=== PATIENT | female | born 1965 | race Caucasian/White ===

== ENCOUNTER 2016-05-07 20:41 | Emergency (ER) | payer OTHER ==
[~2016-05-07] VITALS: Ht 162.6 cm; Wt 109.2 kg
[~2016-05-07 20:41] MED LIST: ALBUAER19 INH; ATV/1 PO; CARI350T PO; DULO60CA44 PO; FLUT0.15 NAE; GLC/500 PO; GLIM4TAB PO; INSDGI SC; MOME200A INH; OMEP40CA36 PO; ONDA4TAB7 SL
[2016-05-07 20:43] VITALS: TEMP 36.5; Ht 162.6 cm; Wt 109.2 kg
[2016-05-07] MEDS ORDERED: SUCR1TAB29 PO (21:25)
[2016-05-07] MEDS ORDERED: CLIN300C2 PO (21:25)
[2016-05-07] MEDS ORDERED: MAGIC SWIZZLE PO STA (21:26)
--- NOTE | 2016-05-07 21:26 | EMERGENCY ROOM VISIT NOTE ---
ED Visit Note First contact with patient: 21:01 CHIEF COMPLAINT: Toothache HISTORY OF PRESENT ILLNESS: This 51-year-old female patient presented to the emergency department ambulatory with a progressive toothache for past to hours. The patient believes it is coming from her left upper molar. The patient believes that she has an infection. She states she has had infections in the teeth before. She reports that she has been treated with clindamycin, but needs to take Carafate before taking the clindamycin. The pain is now steady and severe and radiates to the face. The patient does not have a dentist appointment set up. They rate their pain a 9/10. She has been taking Vicodin at home prescribed by her primary care provider without relief. Denies facial swelling or fever. The patient denies any discharge from the mouth. REVIEW OF SYSTEMS: A 6 system review of systems was completed with positives and pertinent negatives listed in the HPI. ALLERGIES: Amoxicillin, benzonatate, NSAIDs MEDICATIONS: See med list PMH: Hyperlipidemia, diabetes SOCIAL HISTORY: The patient lives locally with family. She is a smoker. PHYSICAL EXAM: Vitals are noted on the nurse's note and reviewed by myself. Vital signs stable. Temperature 36.5C orally. GENERAL: This is a 51-year-old female, in no acute distress, nondiaphoretic, well-developed well-nourished. Mouth: The left upper molar tooth is very carious and the gum is swollen and tender around it, without any discharge or signs of an abscess. The remainder of the pharynx and tonsils are without erythema, edema, or exudate. The airway is patent. There is no facial swelling, cervical or submandibular lymphadenopathy. The patient appears uncomfortable and in pain. The patient has overall poor dental hygiene. EARS: External auditory canals clear, tympanic membranes pearly augustin without erythema or effusion bilaterally. ED COURSE: The patient was evaluated as above. She does have several carious teeth and may have an early infection. She was given a prescription for clindamycin as well as Carafate. The patient did request something for pain and I informed her that since she does receive monthly narcotic prescriptions from her primary care provider, I was not comfortable providing her with any further prescriptions for narcotics. She was agreeable to a prescription for Magic swizzle and was given a home pack and prescription for this. She will need to follow-up with a dentist for definitive care of her dental issues. She verbalized her understanding and was discharged home in good condition. DIAGNOSIS: Odontalgia Problem List Medical Problems: (1) Anxiety Status: Chronic (2) Appendectomy Status: Resolved (3) Asthma Status: Chronic (4) Bilateral inguinal hernia repair Status: Resolved (5) Diabetes mellitus type 2 Status: Chronic (6) fibromyalgia Status: Chronic (7) History of - tubal ligation Status: Resolved (8) Left total knee revision in 03/09 Status: Resolved Current/Historical Medications Scheduled Atorvastatin (Lipitor), 40 MG PO HS Cetirizine (Zyrtec), 10 MG PO QAM Cholecalciferol (Vitamin D3), 1 TAB PO DAILY Clindamycin Hcl (Cleocin), 300 MG PO QID Duloxetine Hcl (Cymbalta), 60 MG PO DAILY Glimepiride (Amaryl), 4 MG PO QAM Insulin Glargine (Lantus), 50 UNITS SC HS Magnesium Oxide (Mag-Ox), 400 MG PO DAILY Metformin Hcl (Glucophage), 500 MG PO BID Mometasone Furoate-Formoterol (Dulera 200/5 Mcg), 2 PUFFS INH BID Omeprazole (Prilosec), 40 MG PO QAM Sucralfate (Carafate), 10 ML PO QID Scheduled PRN Albuterol Inhaler (Ventolin Inhaler), 2 PUFFS INH QID PRN for SOB/Wheezing Albuterol Sulfate (Albuterol Sulfate), 1 VIAL INH Q4H PRN for SOB/Wheezing Carisoprodol (Soma), 350 MG PO TID PRN for Muscle Spasm Diphenhy/Alum/Mag/Sucralfa (Magic Swizzle - Diphenhy/Alum/Mag/Sucralfa), 1 TSP PO Q4H PRN for Pain Fluticasone Propionate (Nasal) (Flonase Allergy Relief), 2 SPRAYS DANIKA DAILY PRN for Nasal Congestion Hydrocodone/Acetaminophen 10MG/325MG ([place] 10MG/325MG), 1 TAB PO Q6H PRN for Pain Insulin Glulisine (Apidra), 3-4 UNITS SQ AC PRN for Coverage Lorazepam (Ativan), 1 MG PO TID PRN for Anxiety/Agitation Ondansetron (Zofran Odt), 4 MG SL Q6H PRN for Nausea Allergies Coded Allergies: Amoxicillin (Verified Allergy, Mild, RASH, 05/07/16) Benzonatate (Verified Allergy, Mild, RASH, 05/07/16) NSAIDs (Verified Adverse Reaction, Intermediate, nausea, 05/07/16) Vital Signs Date Time Temp Pulse Resp B/P Pulse Ox O2 Delivery O2 Flow Rate FiO2 05/07/16 21:53 80 20 141/84 97 05/07/16 20:43 36.5 104 20 146/85 96 Room Air Medications Administered Medications (Trade) Dose Ordered Sig/Darrell Route Start Time Stop Time Status Last Admin Dose Admin Sucralfate (Carafate Tab) 1 gm NOW ONCE PO 05/07/16 21:30 05/07/16 21:31 DC 05/07/16 21:35 1 GM Departure Information Impression Primary Impression: Dental caries Dispostion Home / Self-Care Condition GOOD Prescriptions Sucralfate (CARAFATE) 1 Gm/10 Ml Shaina 10 ML PO QID for 10 Days, #400 ML Prov: Leyda Traylor PA-C 05/07/16 Diphenhy/Alum/Mag/Sucralfa (Magic Swizzle - Diphenhy/Alum/Mag/Sucralfa) Susp 1 TSP PO Q4H Y for Pain, #100 ML 30ML DIPHENHYDRAMINE SLN 12.5/5ML 60ML MAALOX 4GM CARAFATE SWISH AND SPIT Prov: Leyda Traylor PA-C 05/07/16 Clindamycin Hcl (CLEOCIN) 300 Mg Cap 300 MG PO QID for 10 Days, #40 CAP Prov: Leyda Traylor PA-C 05/07/16 Referrals Israel Nicole M.D. (PCP) Patient Instructions A Signature Page, My [facility] Additional Instructions You have been treated in the Emergency Department for Dental Pain. You were prescribed clindamycin to be taken as prescribed. This is an antibiotic. All antibiotics have the potential to cause diarrhea. Stop this medication and contact a medical provider if you were to develop any significant adverse side effects including: wheezing, shortness of breath, passing out, vomiting, or a diffuse rash. Always take antibiotics as directed and COMPLETE the ENTIRE course regardless of the improvement of your symptoms. For pain control, you can use the following [id number] medicines (if >12 yo): - Regular strength (325mg/tab) Tylenol (acetaminophen) 2 tabs every 4-6 hours as needed. Do not exceed 12 tablets in a 24 hour period. Avoid taking more than 4 grams (4000 mg) of Tylenol per day. This includes any other sources of acetaminophen you may take on a regular basis. - Regular strength (200 mg/tab) Advil (ibuprofen) 1-2 tabs every 4-6 hours as needed. Do not exceed a dose of 3200 mg per day. Refrain from smoking cigarettes or using chewing tobacco until you have been evaluated by your dentist. Keeping beverages lukewarm and consuming soft foods can decrease your pain. Warm compresses over the affected area may offer some relief. You MUST seek evaluation of your dental pain by a dentist following your visit to the Emergency Department. The Emergency Department is not capable of treating dental issues long-term. You should call your dentist as soon as possible to make an appointment for evaluation of your dental pain. Return to the emergency department if you develop the following symptoms despite treatment course outlined above: fever, intractable pain, increased redness, swelling, or purulent discharge.
[2016-05-07] MEDS ORDERED: SUCRALFATE 1 GM TAB PO ONE (21:30)
[2016-05-07] MEDS ORDERED: CLINDAMYCIN 150MG HOME PACK PO ONE (21:30)
[2016-05-07] MEDS ORDERED: CRFL PO (21:36)
[2016-05-07] MEDS ORDERED: MAGIC1 PO (21:36)
[2016-05-07 21:53] VITALS: BP 141/84; PULSE 80; O2SAT 97
[2016-12-24] MEDS ORDERED: ADVIN50/60 INH (13:20)
[2016-12-24] MEDS ORDERED: LRS10 PO (13:20)
[2016-12-24] MEDS ORDERED: ALBU0.633 INH (13:30)
[2016-12-24] MEDS ORDERED: CETI10TA84 PO (15:00)
[2016-12-24] MEDS ORDERED: HYDR-4079 PO (15:00)
[2016-12-24] MEDS ORDERED: INSUINJ5 SC (15:04)
[2016-12-24] MEDS ORDERED: MAGN400T6 PO (19:29)
[2016-12-24] MEDS ORDERED: CHOL20007 PO (21:05)
[2016-12-24] MEDS ORDERED: ATOR-24 PO (21:05)
[2016-12-24] MEDS ORDERED: OMEP40CA41 PO (21:13)
[2016-12-24] MEDS ORDERED: VNTHFA/IN INH (21:13)
[2016-12-24] MEDS ORDERED: TURM500T PO (21:16)
[2016-12-24] MEDS ORDERED: MILKPOW PO (21:16)
[2016-12-24] MEDS ORDERED: KRIL1000 PO (21:16)
[2016-12-24] MEDS ORDERED: MULT-506 PO (21:16)
[2016-12-24] MEDS ORDERED: CALC-51 PO (21:16)
[2016-12-24] MEDS ORDERED: CINN1CAP2 PO (21:16)
[2017-04-13] MEDS ORDERED: CEFD300C3 PO (06:20)
[2017-04-13] MEDS ORDERED: MDRDP21 PO (06:20)
== END 2016-05-07 21:52 | disposition home or self-care (01) ==
LOC: C.EDB 20:42 → C.EDD 21:52
DX: K02.9 Dental caries, unspecified (principal); E78.5 Hyperlipidemia, unspecified; E11.9 Type 2 diabetes mellitus without complications; J45.909 Unspecified asthma, uncomplicated; F41.9 Anxiety disorder, unspecified; M79.7 Fibromyalgia; F17.200 Nicotine dependence, unspecified, uncomplicated; Z79.899 Other long term (current) drug therapy; Z79.4 Long term (current) use of insulin

== ENCOUNTER → 2016-07-10 | Outpatient (CLI) | payer OTHER ==
[~2016-07-10] VITALS: Ht 162.6 cm; Wt 109.1 kg
[~2016-07-10] MED LIST changes: +ADVIN50/60 INH; +ALBU0.633 INH; +ATOR-24 PO; +CALC-51 PO; +CEFU1TAB36 PO; +CETI10TA84 PO; +CHOL20007 PO; +CINN1CAP2 PO; +CRFL PO; +CYM60 PO; +FLNIN/ NAE; +GABA-112 PO; +GLC500 PO; +GLIM4TAB2 PO; +HYDR-4079 PO; +INSDGIPEN SC; +INSUINJ5 SC; +KRIL1000 PO; +LORA1TAB13 PO; +LRS10 PO; +MAGIC1 PO; +MAGN400T6 PO; +MILKPOW PO; +MULT-506 PO; +OMEP40CA41 PO; +ONDA4TAB10 SL; +ONDA4TAB54 SL; +PRED10TA PO; +PRED20TA PO; +SULF800T23 PO; +TURM500T PO; +VNTHFA/IN INH
[2016-07-10 14:36] VITALS: BP 145/81; PULSE 98; Ht 162.6 cm; Wt 109.1 kg
== END | disposition home or self-care (01) ==
LOC: C.NEUR 14:20
PROVIDERS: ATTEND Internal Medicine Pulmonary Disease
DX: G47.33 Obstructive sleep apnea (adult) (pediatric) (principal)

== ENCOUNTER 2016-09-09 20:45 | Emergency (ER) | payer OTHER ==
[~2016-09-09] VITALS: Ht 162.6 cm; Wt 108.1 kg
[~2016-09-09 20:45] MED LIST changes: -ADVIN50/60 INH; -ALBU0.633 INH; -ATOR-24 PO; -CALC-51 PO; -CEFU1TAB36 PO; -CETI10TA84 PO; -CHOL20007 PO; -CINN1CAP2 PO; -CRFL PO; -CYM60 PO; -FLNIN/ NAE; -GABA-112 PO; -GLC500 PO; -GLIM4TAB2 PO; -HYDR-4079 PO; -INSDGIPEN SC; -INSUINJ5 SC; -KRIL1000 PO; -LORA1TAB13 PO; -LRS10 PO; -MAGN400T6 PO; -MILKPOW PO; -MULT-506 PO; -OMEP40CA41 PO; -ONDA4TAB10 SL; -ONDA4TAB54 SL; -PRED10TA PO; -PRED20TA PO; -SULF800T23 PO; -TURM500T PO; -VNTHFA/IN INH
[2016-09-09 20:51] VITALS: Ht 162.6 cm; Wt 108.1 kg
[2016-09-09] MEDS ORDERED: ALBUT/IPRATROP 3MG/0.5MG NEB 3 ML VIAL INH STA (20:58)
--- NOTE | 2016-09-09 21:06 | EMERGENCY ROOM VISIT NOTE ---
History Report prepared by Brady: Jose Streeter Under the Supervision of: Dr. Israel Stanton D.O. First contact with patient: 20:55 Chief Complaint: RIB PAIN Stated Complaint: LT RIB PAIN, SOME SOB History of Present Illness The patient is a 51 year old female who presents to the Emergency Room with complaints of constant pain in her left ribs that she first experience when she woke up this morning, several hours prior to arrival. The patient states that she took a deep breath this morning and felt the pain in her left ribs. Her pain is still worsened with deep inspiration. She describes the pain as a "burning" sensation. The patient notes that she has been coughing persistently over the past six days. She first went to the walk-in clinic on for a low grade fever and cough. She returned to the clinic on Wednesday and was given Zithromax for a possible infiltrate in the right lung base. The patient has a history of COPD, diabetes, hyperlipidemia, and IBS. She has had an appendectomy , cholecystectomy, and tubal ligation in the past. Source of History: patient Onset: Several hours [employer] Position: other (Left Ribs ) Quality: burning Modifying Factors (Worsening): breathing (Deep inspiration) Review of Systems See HPI for pertinent positives & negatives. A total of 10 systems reviewed and were otherwise negative. Past Medical & Surgical Medical Problems: (1) Anxiety (2) Appendectomy (3) Asthma (4) Bilateral inguinal hernia repair (5) Cholecystitis (6) Diabetes mellitus type 2 (7) fibromyalgia (8) History of - tubal ligation (9) Left total knee revision in 03/09 (10) presyncope (11) seasonal allergies Family History Cancer Colon cancer Diabetes mellitus Gallbladder disease Heart disease Hypertension Lung disease Social History Smoking Status: Current Every Day Smoker Alcohol Use: none Drug Use: marijuana Marital Status: Housing Status: lives with family Occupation Status: unemployed Current/Historical Medications Scheduled Albuterol Hfa (Ventolin Hfa), 2-4 PUFFS INH Q6H Atorvastatin (Lipitor), 40 MG PO HS Calcium Carbonate-Vitamin D (Calcium), 1 TAB PO DAILY Cetirizine (Zyrtec), 10 MG PO QAM Cholecalciferol (Vitamin D3), 1 TAB PO DAILY Cinnamon (Cinnamon), 500 MG PO DAILY Duloxetine Hcl (Cymbalta), 60 MG PO DAILY Glimepiride (Amaryl), 4 MG PO QAM Insulin Glargine (Lantus), 50 UNITS SC QPM Krill Oil (Krill Oil), 1 CAP PO DAILY Magnesium Oxide (Mag-Ox), 400 MG PO DAILY Metformin Hcl (Glucophage), 500 MG PO BID Milk Thistle Seed (Bulk) (Milk Thistle), Unknown Dose PO DAILY Mometasone Furoate-Formoterol (Dulera 200/5 Mcg), 2 PUFFS INH BID Multivitamin (Multivitamin), 1 TAB PO DAILY Omeprazole (Prilosec), 40 MG PO DAILY Turmeric (Curcuma Longa) (Turmeric), 500 MG PO DAILY Scheduled PRN Albuterol Sulfate (Albuterol Sulfate), 1 VIAL INH Q4H PRN for SOB/Wheezing Carisoprodol (Soma), 350 MG PO TID PRN for Muscle Spasm Fluticasone Propionate (Nasal) (Flonase Allergy Relief), 2 SPRAYS DANIKA DAILY PRN for Nasal Congestion Hydrocodone/Acetaminophen 10MG/325MG ([place] 10MG/325MG), 1 TAB PO Q6H PRN for Pain Insulin Glulisine (Apidra), 3-4 UNITS SQ AC PRN for Coverage Lorazepam (Ativan), 1 MG PO TID PRN for Anxiety/Agitation Ondansetron (Ondansetron HCl), 4 MG SL Q6H PRN for Nausea Allergies Coded Allergies: Amoxicillin (Verified Allergy, Mild, RASH, 09/09/16) Benzonatate (Verified Allergy, Mild, RASH, 09/09/16) NSAIDs (Verified Adverse Reaction, Intermediate, nausea, 09/09/16) Physical Exam Vital Signs Date Time Temp Pulse Resp B/P Pulse Ox O2 Delivery O2 Flow Rate FiO2 09/09/16 22:15 36.8 92 16 128/81 94 09/09/16 21:41 92 09/09/16 21:37 97 16 94 Room Air 09/09/16 21:22 98 Room Air 09/09/16 20:51 36.8 100 20 128/81 94 Room Air Physical Exam GENERAL: Patient is awake, alert, and in no acute distress. Patient is resting comfortably and showing no signs of anxiety EYES: The conjunctivae are clear. The pupils are round and reactive. EARS, NOSE, MOUTH AND THROAT: The nose is without any evidence of any deformity. Mucous membranes are moist tongue is midline NECK: The neck is nontender and supple. RESPIRATORY: There are diminished breath sounds bilaterally. Splinting respirations noted. Expiratory wheezing both upper william. No tachypnea, no conversational dyspnea. CARDIOVASCULAR: Regular rate and rhythm noted there no murmurs rubs or gallops normal S1 normal S2 GASTROINTESTINAL: The abdomen is soft. Bowel sounds are present in all quadrants. Abdomen is nontender MUSCULOSKELETAL/EXTREMITIES: There is no evidence of gross deformity full range of motion is noted in the hips and shoulders SKIN: There is no obvious evidence of any rash. There are no petechiae, pallor or cyanosis noted. NEUROLOGIC: Patient is awake alert and oriented x3 Medical Decision & Procedures ER Provider Diagnostic Interpretation: Radiology results as stated below per my review and radiologist interpretation: CHEST ONE VIEW PORTABLE CLINICAL HISTORY: EVALUATE RESPIRATORY DISTRESS. DYSPNEA COMPARISON STUDY: 01/22/2016 FINDINGS: The bones soft tissues and hemidiaphragms are normal. The cardiomediastinal silhouette is normal. The lungs are clear. The pulmonary vasculature is normal. IMPRESSION: Negative chest. Electronically signed by: Aidan Concepcion M.D. 09/09/2016 9:21 PM Dictated Date/Time: 09/09/2016 9:21 PM Laboratory Results 09/09/16 21:30 Red Blood Count 5.01, Mean Corpuscular Volume 84.0, Mean Corpuscular Hemoglobin 28.7, Mean Corpuscular Hemoglobin Concent 34.2, Mean Platelet Volume 9.1, Neutrophils (%) (Auto) 60.0, Lymphocytes (%) (Auto) 32.0, Monocytes (%) (Auto) 5.3, Eosinophils (%) (Auto) 1.8, Basophils (%) (Auto) 0.6, Neutrophils # (Auto) 6.95, Lymphocytes # (Auto) 3.71, Monocytes # (Auto) 0.61, Eosinophils # (Auto) 0.21, Basophils # (Auto) 0.07 09/09/16 21:30 Test 09/09/16 21:30 09/09/16 21:33 White Blood Count 11.58 K/uL (4.8-10.8) Red Blood Count 5.01 M/uL (4.2-5.4) Hemoglobin 14.4 g/dL (12.0-16.0) Hematocrit 42.1 % (37-47) Mean Corpuscular Volume 84.0 fL (80-100) Mean Corpuscular Hemoglobin 28.7 pg (25-34) Mean Corpuscular Hemoglobin Concent 34.2 g/dl (32-36) Platelet Count 289 K/uL (130-400) Mean Platelet Volume 9.1 fL (7.4-10.4) Neutrophils (%) (Auto) 60.0 % Lymphocytes (%) (Auto) 32.0 % Monocytes (%) (Auto) 5.3 % Eosinophils (%) (Auto) 1.8 % Basophils (%) (Auto) 0.6 % Neutrophils # (Auto) 6.95 K/uL (1.4-6.5) Lymphocytes # (Auto) 3.71 K/uL (1.2-3.4) Monocytes # (Auto) 0.61 K/uL (0.11-0.59) Eosinophils # (Auto) 0.21 K/uL (0-0.5) Basophils # (Auto) 0.07 K/uL (0-0.2) RDW Standard Deviation 45.6 fL (36.4-46.3) RDW Coefficient of Variation 14.7 % (11.5-14.5) Immature Granulocyte % (Auto) 0.3 % Immature Granulocyte # (Auto) 0.03 K/uL (0.00-0.02) Prothrombin Time 10.0 SECONDS (9.0-12.0) Prothromb Time International Ratio 0.9 (0.9-1.1) Activated Partial Thromboplast Time 25.2 SECONDS (21.0-31.0) Partial Thromboplastin Ratio 1.0 Anion Gap 9.0 mmol/L (3-11) Est Creatinine Clear Calc Drug Dose 111.6 ml/min Estimated GFR () 114.6 Estimated GFR (Non- 98.9 BUN/Creatinine Ratio 14.1 (10-20) Calcium Level 9.2 mg/dl (8.5-10.1) Total Bilirubin 0.5 mg/dl (0.2-1) Aspartate Amino Transf (AST/SGOT) 19 U/L (15-37) Alanine Aminotransferase (ALT/SGPT) 32 U/L (12-78) Alkaline Phosphatase 107 U/L (45-117) Troponin I < 0.015 ng/ml (0-0.045) Total Protein 7.8 gm/dl (6.4-8.2) Albumin 3.8 gm/dl (3.4-5.0) Globulin 4.0 gm/dl (2.5-4.0) Albumin/Globulin Ratio 1.0 (0.9-2) Bedside D-Dimer 323 ng/mlFEU (0-450) Laboratory results per my review. Medications Administered Medications (Trade) Dose Ordered Sig/Darrell Route Start Time Stop Time Status Last Admin Dose Admin Albuterol/ Ipratropium (Duoneb) 3 ml NOW STAT INH 09/09/16 20:58 09/09/16 20:59 DC 09/09/16 21:18 3 ML Oxycodone HCl (Roxicodone Immediate Rel 5MG Home Pack) 1 homepack UD ONCE PO 09/09/16 22:30 09/09/16 22:31 DC 09/09/16 22:22 1 HOMEPACK ECG Indication: chest pain Rate (beats per minute): 94 Rhythm: normal sinus Findings: T-wave inversion (Anterior), no ectopy Comparison ECG Date: 01/22/2016 ED Course 2057: The patient was evaluated in room A10. A complete history and physical examination were performed. 2057: Ordered Duoneb 3 mL INH. 2229: Ordered Oxycodone HCl 1 homepack PO. 2231: Upon reevaluation, the patient is resting in bed. I discussed the results and treatment plan with her. She verbalized agreement of the treatment plan. The patient was discharged home. Medical Decision The patient's history was concerning for chest pain. Differential diagnosis: Etiologies such as cardiac ischemia, aortic dissection, pulmonary embolism, pneumonia, pneumothorax, musculoskeletal, infections, pericarditis, myocarditis , esophageal rupture, gastrointestinal, as well as others were entertained. The patient is a 51-year-old female who presented to the emergency department for an evaluation of cough and chest pain. The patient has been treated for bronchitis recently. She states that she's had a very severe cough at times and now has left-sided chest pain which is pleuritic as well as reproducible. The patient's d-dimer was negative and her cardiac workup did not appear to be consistent with an acute ischemic episode. I discussed the patient's laboratory and radiographic studies with her. She was treated with bronchodilator therapy. At this time I feel she may have a clinical rib fracture based on her exam but there is nothing definite on the chest x-ray which would need intervention at this time. She was encouraged to rest and avoid any strenuous activity. She was also encouraged to continue all medications as prescribed. She was also encouraged to follow-up with her primary care physician as soon as possible but return to the emergency department immediately if symptoms change worsen or the need arises. Impression Primary Impression: Musculoskeletal chest pain Additional Impression: Chest wall contusion Scribe Attestation The scribe's documentation has been prepared under my direction and personally reviewed by me in its entirety. I confirm that the note above accurately reflects all work, treatment, procedures, and medical decision making performed by me. Departure Information Dispostion Home / Self-Care Referrals Israel Nicole M.D. (PCP) Forms HOME CARE DOCUMENTATION FORM, IMPORTANT VISIT INFORMATION, WORK / SCHOOL INSTRUCTIONS Patient Instructions My [facility] Additional Instructions Call your family doctor in the morning to schedule a follow-up appointment. Rest and avoid any strenuous activity. Continue all medications as prescribed. Problem Qualifiers
[2016-09-09] MEDS ORDERED: INSDGI SC (21:13)
[2016-09-09] MEDS ORDERED: ONDA4TAB54 SL (21:13)
[2016-09-09 21:22] VITALS: O2SAT 98
--- NOTE | 2016-09-09 21:22 | DIAGNOSTIC IMAGING REPORT ---
CHEST ONE VIEW PORTABLE CLINICAL HISTORY: EVALUATE RESPIRATORY DISTRESS. DYSPNEA COMPARISON STUDY: 01/22/2016 FINDINGS: The bones soft tissues and hemidiaphragms are normal. The cardiomediastinal silhouette is normal. The lungs are clear. The pulmonary vasculature is normal. IMPRESSION: Negative chest. Electronically signed by: Aidan Concepcion M.D. 09/09/2016 9:21 PM Dictated Date/Time: 09/09/2016 9:21 PM
[2016-09-09 21:39] LABS: BASO % 0.6 %; BASO ABS # 0.07 K/uL (0-0.2); COMPLETE YES; EOS % 1.8 %; HEMATOCRIT 42.1 % (37-47); IG% 0.3 %; LYMPH ABS # 3.71 K/uL (1.2-3.4); MEAN CORPUSCULAR HEMOGLOBIN 28.7 pg (25-34); MEAN CORPUSCULAR HGB CONC 34.2 g/dl (32-36); MEAN PLATELET VOLUME 9.1 fL (7.4-10.4); MONO % 5.3 %; PLATELET COUNT 289 K/uL (130-400); RED BLOOD COUNT 5.01 M/uL (4.2-5.4); WHITE BLOOD COUNT 11.58 K/uL (4.8-10.8)
[2016-09-09 21:53] LABS: INR 0.9 (0.9-1.1)
[2016-09-09 21:57] LABS: ALT/SGPT 32 U/L (12-78); BLOOD UREA NITROGEN 10 mg/dl (7-18); BUN/CREATININE RATIO 14.1 (10-20); CARBON DIOXIDE 28 mmol/L (21-32); CHLORIDE 98 mmol/L (98-107); GLUCOSE 264 mg/dl (70-99); POTASSIUM 3.4 mmol/L (3.5-5.1); SODIUM 135 mmol/L (136-145)
[2016-09-09 22:01] LABS: ALKALINE PHOSPHATASE 107 U/L (45-117); AST/SGOT 19 U/L (15-37)
[2016-09-09 22:09] LABS: CALCIUM 9.2 mg/dl (8.5-10.1)
[2016-09-09 22:15] VITALS: BP 128/81; PULSE 92; TEMP 36.8; O2SAT 94
[2016-09-09] MEDS ORDERED: OXYCODONE IR HOME PACK PO ONE (22:30)
[2016-12-24] MEDS ORDERED: LRS10 PO (13:20)
[2016-12-24] MEDS ORDERED: ADVIN50/60 INH (13:20)
[2016-12-24] MEDS ORDERED: ALBU0.633 INH (13:30)
[2016-12-24] MEDS ORDERED: HYDR-4079 PO (15:00)
[2016-12-24] MEDS ORDERED: CETI10TA84 PO (15:00)
[2016-12-24] MEDS ORDERED: INSUINJ5 SC (15:04)
[2016-12-24] MEDS ORDERED: MAGN400T6 PO (19:29)
[2016-12-24] MEDS ORDERED: CHOL20007 PO (21:05)
[2016-12-24] MEDS ORDERED: ATOR-24 PO (21:05)
[2016-12-24] MEDS ORDERED: OMEP40CA41 PO (21:13)
[2016-12-24] MEDS ORDERED: VNTHFA/IN INH (21:13)
[2016-12-24] MEDS ORDERED: KRIL1000 PO (21:16)
[2016-12-24] MEDS ORDERED: MILKPOW PO (21:16)
[2016-12-24] MEDS ORDERED: CALC-51 PO (21:16)
[2016-12-24] MEDS ORDERED: CINN1CAP2 PO (21:16)
[2016-12-24] MEDS ORDERED: MULT-506 PO (21:16)
[2016-12-24] MEDS ORDERED: TURM500T PO (21:16)
== END 2016-09-09 22:42 | disposition home or self-care (01) ==
LOC: C.EDB 20:46 → C.EDA 22:42
DX: R07.89 Other chest pain (principal); S20.90XA Unspecified superficial injury of unspecified parts of thorax, initial encounter; X58.XXXA Exposure to other specified factors, initial encounter; J44.9 Chronic obstructive pulmonary disease, unspecified; E11.9 Type 2 diabetes mellitus without complications; E78.5 Hyperlipidemia, unspecified; K58.9 Irritable bowel syndrome, unspecified; F41.9 Anxiety disorder, unspecified; J45.909 Unspecified asthma, uncomplicated; M79.7 Fibromyalgia; Z80.9 Family history of malignant neoplasm, unspecified; Z83.3 Family history of diabetes mellitus; Z83.79 Family history of other diseases of the digestive system; Z82.49 Family history of ischemic heart disease and other diseases of the circulatory system; Z83.6 Family history of other diseases of the respiratory system; F17.210 Nicotine dependence, cigarettes, uncomplicated; Z79.4 Long term (current) use of insulin; Z79.899 Other long term (current) drug therapy

== ENCOUNTER 2016-09-29 21:07 | Emergency (ER) | payer OTHER ==
[~2016-09-29] VITALS: Ht 162.6 cm; Wt 108.3 kg
[~2016-09-29 21:07] MED LIST changes: -ALBUAER19 INH; -MAGIC1 PO; -OMEP40CA36 PO; +ONDA4TAB54 SL; -ONDA4TAB7 SL
[2016-09-29 21:18] VITALS: TEMP 37.1; Ht 162.6 cm; Wt 108.3 kg
[2016-09-29 21:42] VITALS: O2SAT 95
[2016-09-29] MEDS ORDERED: OXYCODONE/ACETAMINOPHEN 7.5-325 TAB PO STA (21:42)
--- NOTE | 2016-09-29 21:46 | EMERGENCY ROOM VISIT NOTE ---
History Report prepared by Brady: Amandeep Castellanos Under the Supervision of: Dr. Wellington Diana D.O. First contact with patient: 21:33 Chief Complaint: RIB PAIN Stated Complaint: L CHEST RIB MUSCLE PAIN History of Present Illness The patient is a 51 year old female who presents to the Emergency Room with complaints of constant, left-sided abdominal pain beginning today. She currently rates her discomfort an 8/10 in severity. The patient states that she was in the ER earlier this month for similar symptoms, but she states that pain has moved. She notes that she has a cough, and she denies shortness of breath, injuring her ribs, and coughing up blood. The patient reports that she is taking Soma and OxyContin, but they are not helping. Source of History: patient Onset: this morning Position: abdomen (left-sided) Symptom Intensity: 8/10 Timing: constant Modifying Factors (Worsening): stretching Associated Symptoms: + cough, No SOB Review of Systems See HPI for pertinent positives and negatives. A total of ten systems were reviewed and were otherwise negative. Past Medical & Surgical Medical Problems: (1) Anxiety (2) Appendectomy (3) Asthma (4) Bilateral inguinal hernia repair (5) Cholecystitis (6) Diabetes mellitus type 2 (7) fibromyalgia (8) History of - tubal ligation (9) Left total knee revision in 03/09 (10) presyncope (11) seasonal allergies Family History Cancer Colon cancer Diabetes mellitus Gallbladder disease Heart disease Hypertension Lung disease Social History Smoking Status: Current Every Day Smoker Alcohol Use: none Drug Use: marijuana Marital Status: Housing Status: lives with family Occupation Status: unemployed Current/Historical Medications Scheduled Albuterol Hfa (Ventolin Hfa), 2-4 PUFFS INH Q6H Atorvastatin (Lipitor), 40 MG PO HS Calcium Carbonate-Vitamin D (Calcium), 1 TAB PO DAILY Cetirizine (Zyrtec), 10 MG PO QAM Cholecalciferol (Vitamin D3), 1 TAB PO DAILY Cinnamon (Cinnamon), 500 MG PO DAILY Duloxetine Hcl (Cymbalta), 60 MG PO DAILY Glimepiride (Amaryl), 4 MG PO QAM Insulin Glargine (Lantus), 50 UNITS SC QPM Krill Oil (Krill Oil), 1 CAP PO DAILY Magnesium Oxide (Mag-Ox), 400 MG PO DAILY Metformin Hcl (Glucophage), 500 MG PO BID Milk Thistle Seed (Bulk) (Milk Thistle), Unknown Dose PO DAILY Mometasone Furoate-Formoterol (Dulera 200/5 Mcg), 2 PUFFS INH BID Multivitamin (Multivitamin), 1 TAB PO DAILY Omeprazole (Prilosec), 40 MG PO DAILY Turmeric (Curcuma Longa) (Turmeric), 500 MG PO DAILY Scheduled PRN Albuterol Sulfate (Albuterol Sulfate), 1 VIAL INH Q4H PRN for SOB/Wheezing Carisoprodol (Soma), 350 MG PO TID PRN for Muscle Spasm Fluticasone Propionate (Nasal) (Flonase Allergy Relief), 2 SPRAYS DANIKA DAILY PRN for Nasal Congestion Hydrocodone/Acetaminophen 10MG/325MG ([place] 10MG/325MG), 1 TAB PO Q6H PRN for Pain Insulin Glulisine (Apidra), 3-4 UNITS SQ AC PRN for Coverage Lorazepam (Ativan), 1 MG PO TID PRN for Anxiety/Agitation Ondansetron (Ondansetron HCl), 4 MG SL Q6H PRN for Nausea Allergies Coded Allergies: Amoxicillin (Verified Allergy, Mild, RASH, 09/09/16) Benzonatate (Verified Allergy, Mild, RASH, 09/09/16) NSAIDs (Verified Adverse Reaction, Intermediate, nausea, 09/09/16) Physical Exam Vital Signs Date Time Temp Pulse Resp B/P Pulse Ox O2 Delivery O2 Flow Rate FiO2 09/29/16 22:21 Room Air 09/29/16 22:07 86 19 94 09/29/16 21:42 95 09/29/16 21:37 84 17 96 09/29/16 21:32 80 09/29/16 21:28 128/69 09/29/16 21:18 37.1 95 16 122/77 96 Room Air Physical Exam GENERAL: Awake, alert, well-appearing, in no distress HENT: Normocephalic, atraumatic. Oropharynx unremarkable. EYES: Normal conjunctiva. Sclera non-icteric. NECK: Supple. No nuchal rigidity. FROM. No JVD. RESPIRATORY: Clear to auscultation. CARDIAC: Regular rate, normal rhythm. Extremities warm and well perfused. Pulses equal. ABDOMEN: Soft, non-distended. Left-sided tenderness. No rebound or guarding. No masses. RECTAL: Deferred. MUSCULOSKELETAL: Chest examination reveals no tenderness. The back is symmetrical on inspection without obvious abnormality. There is no CVA tenderness to palpation. No joint edema. LOWER EXTREMITIES: Calves are equal size bilaterally and non-tender. No edema. No discoloration. NEURO: Normal sensorium. No sensory or motor deficits noted. SKIN: No rash or jaundice noted. Medical Decision & Procedures ER Provider Diagnostic Interpretation: X-ray: Per my interpretation, radiologist review. SINGLE VIEW CHEST CLINICAL HISTORY: Atypical chest pain. FINDINGS: An AP, portable, upright chest radiograph is compared to study dated 09/09/2016. Correlation is made with chest CT dated 11/30/2009. The examination is degraded by portable technique, large body habitus, and apical lordotic positioning. The heart is top normal for projection. The mediastinal contour is within normal limits. The lungs and pleural spaces are clear. No pneumothorax is seen. The skeletal structures are osteopenic. The bony thorax is grossly intact. Mild degenerative change and scoliosis are noted in the thoracic spine. IMPRESSION: No active disease in the chest. Electronically signed by: Sameer Steinberg M.D. 09/29/2016 10:18 PM Dictated Date/Time: 09/29/2016 10:17 PM Laboratory Results 09/29/16 22:15 Red Blood Count 4.78, Mean Corpuscular Volume 83.7, Mean Corpuscular Hemoglobin 28.5, Mean Corpuscular Hemoglobin Concent 34.0, Mean Platelet Volume 8.5, Neutrophils (%) (Auto) 58.1, Lymphocytes (%) (Auto) 34.0, Monocytes (%) (Auto) 5.5, Eosinophils (%) (Auto) 1.6, Basophils (%) (Auto) 0.5, Neutrophils # (Auto) 6.79, Lymphocytes # (Auto) 3.98, Monocytes # (Auto) 0.64, Eosinophils # (Auto) 0.19, Basophils # (Auto) 0.06 09/29/16 22:15 Test 09/29/16 22:15 09/29/16 22:22 White Blood Count 11.70 K/uL (4.8-10.8) Red Blood Count 4.78 M/uL (4.2-5.4) Hemoglobin 13.6 g/dL (12.0-16.0) Hematocrit 40.0 % (37-47) Mean Corpuscular Volume 83.7 fL (80-100) Mean Corpuscular Hemoglobin 28.5 pg (25-34) Mean Corpuscular Hemoglobin Concent 34.0 g/dl (32-36) Platelet Count 278 K/uL (130-400) Mean Platelet Volume 8.5 fL (7.4-10.4) Neutrophils (%) (Auto) 58.1 % Lymphocytes (%) (Auto) 34.0 % Monocytes (%) (Auto) 5.5 % Eosinophils (%) (Auto) 1.6 % Basophils (%) (Auto) 0.5 % Neutrophils # (Auto) 6.79 K/uL (1.4-6.5) Lymphocytes # (Auto) 3.98 K/uL (1.2-3.4) Monocytes # (Auto) 0.64 K/uL (0.11-0.59) Eosinophils # (Auto) 0.19 K/uL (0-0.5) Basophils # (Auto) 0.06 K/uL (0-0.2) RDW Standard Deviation 45.3 fL (36.4-46.3) RDW Coefficient of Variation 14.8 % (11.5-14.5) Immature Granulocyte % (Auto) 0.3 % Immature Granulocyte # (Auto) 0.04 K/uL (0.00-0.02) Anion Gap 6.0 mmol/L (3-11) Est Creatinine Clear Calc Drug Dose 110.2 ml/min Estimated GFR () 112.7 Estimated GFR (Non- 97.2 BUN/Creatinine Ratio 7.3 (10-20) Calcium Level 8.8 mg/dl (8.5-10.1) Total Bilirubin 0.5 mg/dl (0.2-1) Direct Bilirubin 0.1 mg/dl (0-0.2) Aspartate Amino Transf (AST/SGOT) 14 U/L (15-37) Alanine Aminotransferase (ALT/SGPT) 23 U/L (12-78) Alkaline Phosphatase 90 U/L (45-117) Total Protein 7.2 gm/dl (6.4-8.2) Albumin 3.3 gm/dl (3.4-5.0) Bedside Troponin I 0.000 ng/ml (0-0.045) Laboratory results reviewed by me Medications Administered Medications (Trade) Dose Ordered Sig/Darrell Route Start Time Stop Time Status Last Admin Dose Admin Oxycodone/ Acetaminophen (Percocet 7.5-325MG Tab) 1 tab NOW STAT PO 09/29/16 21:42 09/29/16 21:45 DC 09/29/16 21:58 1 TAB ECG Indication: abdominal pain Rate (beats per minute): 84 Rhythm: normal sinus Findings: no acute ischemic change, other (Poor R-wave progression) ED Course 2138: The patient was evaluated in room B12B. A complete history and physical exam was performed. 2141: Ordered Oxycodone/Acetaminophen 1 tab PO 2253: I reevaluated the patient, and she is in no distress and is resting. Discussed results and discharge instructions: she verbalized understanding and agreement. The patient is ready for discharge. Medical Decision Costochondritis, bronchitis, musculoskeletal chest pain, pneumonia Medication Reconciliation: I attest that I have personally reviewed the patient' s current medication list. Blood pressure screening: Patient was found to have normal blood pressure on screening and does not require follow-up. Repeat examination patient 2300 hrs. the patient is resting in no distress. Patient has a normal troponin and normal EKG normal chest x-ray and normal labs. I doubt thoracic aortic dissection pulmonary embolism or acute coronary syndrome as causes for this patient's current pain. I discussed the evaluation with the patient at bedside Impression Primary Impression: Chest pain Scribe Attestation The scribe's documentation has been prepared under my direction and personally reviewed by me in its entirety. I confirm that the note above accurately reflects all work, treatment, procedures, and medical decision making performed by me. Departure Information Dispostion Home / Self-Care Referrals Israel Nicole M.D. (PCP) Patient Instructions ED Chest Pain [place], Nadira [facility] Problem Qualifiers Primary Impression: Chest pain Chest pain type: intercostal pain Qualified Codes: R07.82 - Intercostal pain
--- NOTE | 2016-09-29 22:19 | DIAGNOSTIC IMAGING REPORT ---
SINGLE VIEW CHEST CLINICAL HISTORY: Atypical chest pain. FINDINGS: An AP, portable, upright chest radiograph is compared to study dated 09/09/2016. Correlation is made with chest CT dated 11/30/2009. The examination is degraded by portable technique, large body habitus, and apical lordotic positioning. The heart is top normal for projection. The mediastinal contour is within normal limits. The lungs and pleural spaces are clear. No pneumothorax is seen. The skeletal structures are osteopenic. The bony thorax is grossly intact. Mild degenerative change and scoliosis are noted in the thoracic spine. IMPRESSION: No active disease in the chest. Electronically signed by: Sameer Steinberg M.D. 09/29/2016 10:18 PM Dictated Date/Time: 09/29/2016 10:17 PM
[2016-09-29 22:28] LABS: BASO % 0.5 %; BASO ABS # 0.06 K/uL (0-0.2); COMPLETE YES; EOS % 1.6 %; IG% 0.3 %; LYMPH ABS # 3.98 K/uL (1.2-3.4); MEAN CELL VOLUME 83.7 fL (80-100); MEAN CORPUSCULAR HEMOGLOBIN 28.5 pg (25-34); MEAN PLATELET VOLUME 8.5 fL (7.4-10.4); MONO % 5.5 %; NEUT % 58.1 %; PLATELET COUNT 278 K/uL (130-400); RED BLOOD COUNT 4.78 M/uL (4.2-5.4)
[2016-09-29 22:43] LABS: CALCIUM 8.8 mg/dl (8.5-10.1)
[2016-09-29 22:45] LABS: BUN/CREATININE RATIO 7.3 (10-20); CREATININE 0.71 mg/dl (0.60-1.20); POTASSIUM 3.9 mmol/L (3.5-5.1)
[2016-09-29 23:10] VITALS: BP 123/71; PULSE 87; O2SAT 94
[2016-12-24] MEDS ORDERED: ADVIN50/60 INH (13:20)
[2016-12-24] MEDS ORDERED: LRS10 PO (13:20)
[2016-12-24] MEDS ORDERED: ALBU0.633 INH (13:30)
[2016-12-24] MEDS ORDERED: CETI10TA84 PO (15:00)
[2016-12-24] MEDS ORDERED: HYDR-4079 PO (15:00)
[2016-12-24] MEDS ORDERED: INSUINJ5 SC (15:04)
[2016-12-24] MEDS ORDERED: MAGN400T6 PO (19:29)
[2016-12-24] MEDS ORDERED: ATOR-24 PO (21:05)
[2016-12-24] MEDS ORDERED: CHOL20007 PO (21:05)
[2016-12-24] MEDS ORDERED: VNTHFA/IN INH (21:13)
[2016-12-24] MEDS ORDERED: OMEP40CA41 PO (21:13)
[2016-12-24] MEDS ORDERED: TURM500T PO (21:16)
[2016-12-24] MEDS ORDERED: MILKPOW PO (21:16)
[2016-12-24] MEDS ORDERED: CINN1CAP2 PO (21:16)
[2016-12-24] MEDS ORDERED: MULT-506 PO (21:16)
[2016-12-24] MEDS ORDERED: CALC-51 PO (21:16)
[2016-12-24] MEDS ORDERED: KRIL1000 PO (21:16)
== END 2016-09-29 23:13 | disposition home or self-care (01) ==
LOC: C.EDB 21:08
DX: R07.82 Intercostal pain (principal); Z79.4 Long term (current) use of insulin; Z79.899 Other long term (current) drug therapy; F41.9 Anxiety disorder, unspecified; F12.10 Cannabis abuse, uncomplicated; J45.909 Unspecified asthma, uncomplicated; Z90.49 Acquired absence of other specified parts of digestive tract; F17.210 Nicotine dependence, cigarettes, uncomplicated; E11.9 Type 2 diabetes mellitus without complications; M79.7 Fibromyalgia; Z98.51 Tubal ligation status; Z96.652 Presence of left artificial knee joint; Z83.3 Family history of diabetes mellitus; Z80.0 Family history of malignant neoplasm of digestive organs; Z82.49 Family history of ischemic heart disease and other diseases of the circulatory system

== ENCOUNTER 2016-10-17 12:58 | Emergency (ER) | payer OTHER ==
[~2016-10-17] VITALS: Ht 162.6 cm; Wt 106.0 kg
[2016-10-17 13:03] VITALS: TEMP 36.7; Ht 162.6 cm; Wt 106.0 kg
[2016-10-17] MEDS ORDERED: SODIUM CHLORIDE 0.9% 1000ML 500 ML IV STA (13:13)
[2016-10-17] MEDS ORDERED: ONDANSETRON INJ 2 MG/ML 2 ML VIAL IV STA (13:13)
[2016-10-17] MEDS ORDERED: KETOROLAC TROMETHAMINE 30 MG/ML VIAL IV STA (13:13)
[2016-10-17] MEDS ORDERED: MoRPHine SULFATE 10 MG/ML CARP/VIAL IV PRN (13:15)
--- NOTE | 2016-10-17 13:24 | EMERGENCY ROOM VISIT NOTE ---
History Report prepared by Brady: Laith Zepeda Under the Supervision of: Dr. Smaeer Zhou M.D. First contact with patient: 13:05 Chief Complaint: CHEST PAIN Stated Complaint: CHEST PAIN INTO BACK,COUGH History of Present Illness The patient is a 51 year old female who presents to the Emergency Room with complaints of constant left sided chest pain beginning yesterday. She was seen in the ED last month for similar complaints, and her pain was thought to be musculoskeletal. Her pain is worsened with movement and deep breathing. The patient denies any recent falls or trauma. She notes that she was prescribed hydrocodone for arthritis last month, but states that it does not help her chest pain. She rates her current pain as a 9/10 in severity and states that is "burning and sharp". She also complains of shortness of breath and a cough. The patient denies any fevers. She notes that she is scheduled for a stress echocardiogram next week. She states that the stress echo was scheduled after she had a prolonged QT by ECG, but notes that this is not always present on her ECG's. Source of History: patient Onset: Yesterday Position: chest (left) Symptom Intensity: 9/10 in severity Quality: burning, sharp Timing: constant Modifying Factors (Worsening): breathing (deep), movement Associated Symptoms: + cough, + SOB, No fevers Review of Systems See HPI for pertinent positives & negatives. A total of 10 systems reviewed and were otherwise negative. Past Medical & Surgical Medical Problems: (1) Anxiety (2) Appendectomy (3) Asthma (4) Bilateral inguinal hernia repair (5) Cholecystitis (6) Diabetes mellitus type 2 (7) fibromyalgia (8) History of - tubal ligation (9) Left total knee revision in 03/09 (10) presyncope (11) seasonal allergies Family History Cancer Colon cancer Diabetes mellitus Gallbladder disease Heart disease Hypertension Lung disease Social History Smoking Status: Current Every Day Smoker Alcohol Use: none Drug Use: marijuana Marital Status: Housing Status: lives with family Occupation Status: unemployed Current/Historical Medications Scheduled Albuterol Hfa (Ventolin Hfa), 2-4 PUFFS INH Q6H Atorvastatin (Lipitor), 40 MG PO HS Baclofen (Baclofen), 10 MG PO BID Calcium Carbonate-Vitamin D (Calcium), 1 TAB PO DAILY Cetirizine (Zyrtec), 10 MG PO QAM Cholecalciferol (Vitamin D3), 1 TAB PO DAILY Cinnamon (Cinnamon), 500 MG PO DAILY Duloxetine Hcl (Cymbalta), 60 MG PO DAILY Fluticasone Prop/Salmeterol (Advair Diskus 500/50 60 Dose), 1 PUFF INH BID Glimepiride (Amaryl), 4 MG PO QAM Insulin Glargine (Lantus), 50 UNITS SC QPM Krill Oil (Krill Oil), 1 CAP PO DAILY Magnesium Oxide (Mag-Ox), 400 MG PO DAILY Metformin Hcl (Glucophage), 500 MG PO BID Milk Thistle Seed (Bulk) (Milk Thistle), Unknown Dose PO DAILY Mometasone Furoate-Formoterol (Dulera 200/5 Mcg), 2 PUFFS INH BID Multivitamin (Multivitamin), 1 TAB PO DAILY Omeprazole (Prilosec), 40 MG PO DAILY Prednisone (Prednisone), 1 TAB PO DAILY Turmeric (Curcuma Longa) (Turmeric), 500 MG PO DAILY Scheduled PRN Albuterol Sulfate (Albuterol Sulfate), 1 VIAL INH Q4H PRN for SOB/Wheezing Fluticasone Propionate (Nasal) (Flonase Allergy Relief), 2 SPRAYS DANIKA DAILY PRN for Nasal Congestion Hydrocodone/Acetaminophen 10MG/325MG ([place] 10MG/325MG), 1 TAB PO Q6H PRN for Pain Insulin Glulisine (Apidra), 3-4 UNITS SQ AC PRN for Coverage Lorazepam (Ativan), 1 MG PO TID PRN for Anxiety/Agitation Ondansetron (Ondansetron HCl), 4 MG SL Q6H PRN for Nausea Allergies Coded Allergies: Clindamycin (Unverified Allergy, Severe, GI UPSET, 10/17/16) Doxycycline (Unverified Allergy, Severe, VOMIT, 10/17/16) Tetracycline (Unverified Allergy, Severe, VOMIT, 10/17/16) Amoxicillin (Verified Allergy, Mild, RASH, 10/17/16) Benzonatate (Verified Allergy, Mild, RASH, 10/17/16) NSAIDs (Verified Adverse Reaction, Intermediate, nausea, 10/17/16) Physical Exam Vital Signs Date Time Temp Pulse Resp B/P (MAP) Pulse Ox O2 Delivery O2 Flow Rate FiO2 10/17/16 16:29 84 16 135/71 94 10/17/16 16:08 83 14 94 10/17/16 16:07 116/59 10/17/16 15:08 77 10 93 10/17/16 15:03 76 13 96 10/17/16 14:49 123/64 10/17/16 14:33 78 14 95 10/17/16 14:28 83 14 96 10/17/16 13:58 81 17 100 10/17/16 13:29 97 Room Air 10/17/16 13:28 91 21 10/17/16 13:22 96 10/17/16 13:03 36.7 97 20 130/82 95 Room Air Physical Exam GENERAL: Moderate distress secondary to pain. Anxious. HEENT: No acute trauma, normocephalic atraumatic, mucous membranes moist, no nasal congestion, no scleral icterus. NECK: No stridor, no adenopathy, no meningismus, trachea is midline. LUNGS: Clear to auscultation bilaterally, no wheeze, no rhonchi, breath sounds equal. HEART: Without murmurs gallops or rubs, regular rate and rhythm. CHEST: Tender to the left lateral and anterior chest-wall, inferior to the breast. No rash. ABDOMEN: Soft, nontender, bowel sounds positive, no hernias, no peritonitis. EXTREMITIES: No cyanosis or edema, full range of motion of all the joints without pain or difficulty, no signs for acute trauma. NEUROLOGIC: Oriented x 3, no acute motor or sensory deficits, no focal weakness. SKIN: No rash, no jaundice, no diaphoresis. Medical Decision & Procedures ER Provider Diagnostic Interpretation: Radiology results as stated below per my review and radiologist interpretation: CHEST ONE VIEW PORTABLE FINDINGS: The bones soft tissues and hemidiaphragms are normal. The cardiomediastinal silhouette is normal. The lungs are clear. The pulmonary vasculature is normal. IMPRESSION: Negative chest. Electronically signed by: Aidan Concepcion M.D. CHEST CTA for PULMONARY ARTERIES FINDINGS: There is a normal caliber thoracic aorta with no evidence for dissection. There is no evidence for pulmonary embolus. No pleural effusions. No pneumothorax. The liver and spleen are unremarkable. No mediastinal or hilar lymphadenopathy. The central airways are patent. The lungs are clear. IMPRESSION: No evidence for pulmonary embolus. Electronically signed by: Aidan Concepcion M.D. Laboratory Results 10/17/16 13:30 10/17/16 13:30 Test 10/17/16 13:30 Red Blood Count 4.79 M/uL (4.2-5.4) Mean Corpuscular Volume 83.9 fL (80-100) Mean Corpuscular Hemoglobin 28.4 pg (25-34) Mean Corpuscular Hemoglobin Concent 33.8 g/dl (32-36) RDW Standard Deviation 44.9 fL (36.4-46.3) RDW Coefficient of Variation 14.6 % (11.5-14.5) Mean Platelet Volume 8.8 fL (7.4-10.4) Prothrombin Time 10.0 SECONDS (9.0-12.0) Prothromb Time International Ratio 0.9 (0.9-1.1) Activated Partial Thromboplast Time 25.2 SECONDS (21.0-31.0) Partial Thromboplastin Ratio 1.0 Anion Gap 8.0 mmol/L (3-11) Est Creatinine Clear Calc Drug Dose 120.7 ml/min Estimated GFR () 118.1 Estimated GFR (Non- 101.9 BUN/Creatinine Ratio 13.5 (10-20) Calcium Level 8.3 mg/dl (8.5-10.1) Total Bilirubin 0.5 mg/dl (0.2-1) Aspartate Amino Transf (AST/SGOT) 15 U/L (15-37) Alanine Aminotransferase (ALT/SGPT) 27 U/L (12-78) Alkaline Phosphatase 101 U/L (45-117) Troponin I < 0.015 ng/ml (0-0.045) Total Protein 7.6 gm/dl (6.4-8.2) Albumin 3.6 gm/dl (3.4-5.0) Globulin 4.0 gm/dl (2.5-4.0) Albumin/Globulin Ratio 0.9 (0.9-2) Lipase 172 U/L (73-393) Laboratory results reviewed by me. Medications Administered Medications (Trade) Dose Ordered Sig/Darrell Route Start Time Stop Time Status Last Admin Dose Admin Sodium Chloride 500 ml @ 999 mls/hr Q31M STAT IV 10/17/16 13:13 10/17/16 13:43 DC 10/17/16 13:44 999 MLS/HR Ondansetron HCl (Zofran Inj) 4 mg NOW STAT IV 10/17/16 13:13 10/17/16 13:16 DC 10/17/16 13:44 4 MG Morphine Sulfate (MoRPHine SULFATE INJ) 6 mg Q15M PRN IV 10/17/16 13:15 10/17/16 16:54 DC 10/17/16 13:45 6 MG Lidocaine HCl (Viscous Lidocaine 2% Soln) 20 ml STK-MED ONCE .ROUTE 10/17/16 14:38 10/17/16 14:39 DC 10/17/16 14:41 20 ML Al Hydroxide/Mg Hydroxide (Maalox Susp) 30 ml STK-MED ONCE .ROUTE 10/17/16 14:38 10/17/16 14:39 DC 10/17/16 14:40 30 ML Prednisone (PredniSONE TAB) 20 mg NOW STAT PO 10/17/16 16:14 10/17/16 16:15 DC 10/17/16 16:25 20 MG ECG Indication: chest pain Rate (beats per minute): 97 Rhythm: normal sinus Findings: no acute ischemic change, no ectopy ED Course 1309: The patient was evaluated in room C4. A complete history and physical exam was performed. 1313: Ordered Toradol Inj 30 mg IV, Zofran Inj 4 mg IV, Sodium Chloride 500 ml @ 999 mls/hr IV. 1315: Ordered Morphine Sulfate 6 mg IV. 1436: Ordered GI cocktail 24 mL PO. 1614: Ordered Prednisone Tab 20 mg PO. Reevaluated the patient. Discussed results and discharge instructions: she verbalized understanding and agreement. The patient is ready for discharge. Medical Decision The patient is a 51 year old female who presents to the ED with complaints of chest pain. Differential diagnoses considered include PE, pneumonia, malignancy , rib fracture, pleurisy, cardiac ischemia, aortic dissection, shingles, and musculoskeletal pain. There is no concerning leukocytosis or concerning anemia. No significant electrolyte abnormality, kidney failure or hepatitis. EKG shows a normal sinus rhythm, no acute ischemia. Cardiac enzyme testing times one not consistent with acute cardiac injury. Chest x-ray shows no pneumonia or pneumothorax. There was no evidence for pancreatitis. There is no coagulopathy. Chest CT does not show evidence for PE, aortic dissection, pneumonia. No worrisome findings by CT scan. The patient received IV morphine, IV Zofran. She required a second dose of IV morphine. She was given IV saline. She was given a dose of IV Toradol. She received a GI cocktail. The patient presents with left-sided chest pain. The pain is reproducible on exam. She has had similar pain in the past with a negative workup. The pain seems musculoskeletal. She cannot use nonsteroidals, I am going to give her a small dose of prednisone, she has used this before even though she is diabetic and has done well. She was given 1 dose of oral prednisone here before discharge. Heat to the area was suggested. If worsening, she can return. Blood Pressure Screening: Patient was found to have normal blood pressure on screening and does not require follow-up. Medication Reconciliation: I attest that I have personally reviewed the patient' s current medication list. [place] Drug Monitoring Program Search Results: patient reviewed within database, see additional documentation Drug Monitoring Findings: The patient received 120 10/325 strength Hydrocodone with Tylenol on October 08. Impression Primary Impression: Left sided chest pain Scribe Attestation The scribe's documentation has been prepared under my direction and personally reviewed by me in its entirety. I confirm that the note above accurately reflects all work, treatment, procedures, and medical decision making performed by me. Departure Information Dispostion Home / Self-Care Prescriptions Prednisone (Prednisone) 20 Mg Tab 1 TAB PO DAILY for 6 Days, #6 TAB Prov: Sameer Zhou M.D. 10/17/16 Referrals Israel Nicole M.D. (PCP) Forms HOME CARE DOCUMENTATION FORM, IMPORTANT VISIT INFORMATION Patient Instructions My [facility] Additional Instructions heat to the chest wall rest watch for any rash as discussed prednisone daily for 6 more days follow with tuan miller return if worsening all testing today was ok
[2016-10-17 13:29] VITALS: O2SAT 97
[2016-10-17] MEDS ORDERED: OPTIRAY 320 IV PRN (13:30)
--- NOTE | 2016-10-17 13:41 | DIAGNOSTIC IMAGING REPORT ---
CHEST ONE VIEW PORTABLE CLINICAL HISTORY: CHEST PAIN dyspnea COMPARISON STUDY: 09/29/2016 FINDINGS: The bones soft tissues and hemidiaphragms are normal. The cardiomediastinal silhouette is normal. The lungs are clear. The pulmonary vasculature is normal. IMPRESSION: Negative chest. Electronically signed by: Aidan Concepcion M.D. 10/17/2016 1:39 PM Dictated Date/Time: 10/17/2016 1:39 PM
[2016-10-17 13:49] LABS: HEMATOCRIT 40.2 % (37-47); MEAN CELL VOLUME 83.9 fL (80-100); MEAN CORPUSCULAR HEMOGLOBIN 28.4 pg (25-34); MEAN CORPUSCULAR HGB CONC 33.8 g/dl (32-36); MEAN PLATELET VOLUME 8.8 fL (7.4-10.4); PLATELET COUNT 307 K/uL (130-400); RED BLOOD COUNT 4.79 M/uL (4.2-5.4); WHITE BLOOD COUNT 10.87 K/uL (4.8-10.8)
[2016-10-17 13:57] LABS: INR 0.9 (0.9-1.1)
[2016-10-17 14:17] LABS: ALB/GLOB RATIO 0.9 (0.9-2); ALKALINE PHOSPHATASE 101 U/L (45-117); ALT/SGPT 27 U/L (12-78); BLOOD UREA NITROGEN 9 mg/dl (7-18); BUN/CREATININE RATIO 13.5 (10-20); CALCIUM 8.3 mg/dl (8.5-10.1); CARBON DIOXIDE 26 mmol/L (21-32); CHLORIDE 107 mmol/L (98-107); CREATININE 0.64 mg/dl (0.60-1.20); GLUCOSE 145 mg/dl (70-99)
[2016-10-17 14:20] LABS: POTASSIUM 4.1 mmol/L (3.5-5.1); SODIUM 141 mmol/L (136-145)
[2016-10-17 14:25] LABS: AST/SGOT 15 U/L (15-37)
[2016-10-17] MEDS ORDERED: GI COCKTAIL PO STA (14:36)
[2016-10-17] MEDS ORDERED: ALUMINUM/MAGNESIUM SUSP 30 ML UDC ONE (14:38)
[2016-10-17] MEDS ORDERED: LIDOCAINE HCL 2% VISC SOLN 20 ML UDC ONE (14:38)
--- NOTE | 2016-10-17 15:58 | DIAGNOSTIC IMAGING REPORT ---
CHEST CTA for PULMONARY ARTERIES CT DOSE: 571.54 mGy.cm HISTORY: Chest pain dyspnea TECHNIQUE: Multiaxial CT images of the chest were performed following the intravenous administration of contrast to evaluate the pulmonary arteries. Maximal intensity projection images were also obtained. COMPARISON STUDY: None. FINDINGS: There is a normal caliber thoracic aorta with no evidence for dissection. There is no evidence for pulmonary embolus. No pleural effusions. No pneumothorax. The liver and spleen are unremarkable. No mediastinal or hilar lymphadenopathy. The central airways are patent. The lungs are clear. IMPRESSION: No evidence for pulmonary embolus. Electronically signed by: Aidan Concepcion M.D. 10/17/2016 3:57 PM Dictated Date/Time: 10/17/2016 3:55 PM
[2016-10-17] MEDS ORDERED: PRED20TA PO (16:16)
[2016-10-17 16:29] VITALS: BP 135/71; PULSE 84; O2SAT 94
[2016-12-24] MEDS ORDERED: ADVIN50/60 INH (13:20)
[2016-12-24] MEDS ORDERED: LRS10 PO (13:20)
[2016-12-24] MEDS ORDERED: ALBU0.633 INH (13:30)
[2016-12-24] MEDS ORDERED: CETI10TA84 PO (15:00)
[2016-12-24] MEDS ORDERED: HYDR-4079 PO (15:00)
[2016-12-24] MEDS ORDERED: INSUINJ5 SC (15:04)
[2016-12-24] MEDS ORDERED: MAGN400T6 PO (19:29)
[2016-12-24] MEDS ORDERED: ATOR-24 PO (21:05)
[2016-12-24] MEDS ORDERED: CHOL20007 PO (21:05)
[2016-12-24] MEDS ORDERED: VNTHFA/IN INH (21:13)
[2016-12-24] MEDS ORDERED: OMEP40CA41 PO (21:13)
[2016-12-24] MEDS ORDERED: KRIL1000 PO (21:16)
[2016-12-24] MEDS ORDERED: MILKPOW PO (21:16)
[2016-12-24] MEDS ORDERED: CINN1CAP2 PO (21:16)
[2016-12-24] MEDS ORDERED: TURM500T PO (21:16)
[2016-12-24] MEDS ORDERED: MULT-506 PO (21:16)
[2016-12-24] MEDS ORDERED: CALC-51 PO (21:16)
== END 2016-10-17 16:30 | disposition home or self-care (01) ==
LOC: C.EDB 13:00 → C.EDC 16:30
DX: R07.9 Chest pain, unspecified (principal); F41.9 Anxiety disorder, unspecified; J45.909 Unspecified asthma, uncomplicated; E11.9 Type 2 diabetes mellitus without complications; M79.7 Fibromyalgia; Z80.9 Family history of malignant neoplasm, unspecified; Z83.3 Family history of diabetes mellitus; Z82.49 Family history of ischemic heart disease and other diseases of the circulatory system; Z83.6 Family history of other diseases of the respiratory system; F17.210 Nicotine dependence, cigarettes, uncomplicated; Z79.4 Long term (current) use of insulin; Z79.899 Other long term (current) drug therapy

== ENCOUNTER 2016-10-29 21:23 | Emergency (ER) | payer OTHER ==
[~2016-10-29] VITALS: Ht 162.6 cm; Wt 106.7 kg
[~2016-10-29 21:23] MED LIST changes: -CARI350T PO
[2016-10-29 21:31] VITALS: TEMP 37; Ht 162.6 cm; Wt 106.7 kg
[2016-10-29] MEDS ORDERED: CRFL PO (22:06)
[2016-10-29] MEDS ORDERED: GABA-112 PO (22:06)
[2016-10-29] MEDS ORDERED: SODIUM CHLORIDE 0.9% 1000ML 1,000 ML IV STA (22:26)
--- NOTE | 2016-10-29 22:58 | DIAGNOSTIC IMAGING REPORT ---
CHEST ONE VIEW PORTABLE CLINICAL HISTORY: Weakness. Left-sided chest pain. COMPARISON STUDY: Chest radiograph and chest CT October 17, 2016. FINDINGS: There is no pneumothorax or pleural effusion. Cardiomediastinal silhouette is normal. There is no evidence of pulmonary edema. There is no consolidation to suggest pneumonia. Mild left basilar opacity favors atelectasis. IMPRESSION: 1. No acute cardiopulmonary findings. 2. Mild left basilar opacity which favors atelectasis. Electronically signed by: Nagi Rosa M.D. 10/29/2016 10:57 PM Dictated Date/Time: 10/29/2016 10:56 PM
[2016-10-29] MEDS ORDERED: HYDROmorphone INJ 1 MG/ML SYR IV STA (23:07)
[2016-10-29] MEDS ORDERED: OPTIRAY 320 IV PRN (23:15)
[2016-10-29 23:26] VITALS: O2SAT 95
[2016-10-29] MEDS ORDERED: MoRPHine SULFATE 10 MG/ML CARP/VIAL IV STA (23:29)
[2016-10-29 23:39] LABS: BASO % 0.5 %; BASO ABS # 0.07 K/uL (0-0.2); COMPLETE YES; EOS % 1.6 %; HEMATOCRIT 43.3 % (37-47); IG% 0.4 %; LYMPH % 31.7 %; LYMPH ABS # 4.04 K/uL (1.2-3.4); MEAN CELL VOLUME 83.8 fL (80-100); MEAN CORPUSCULAR HGB CONC 33.5 g/dl (32-36); MEAN PLATELET VOLUME 8.9 fL (7.4-10.4); MONO % 8.5 %; NEUT % 57.3 %; PLATELET COUNT 330 K/uL (130-400); RED BLOOD COUNT 5.17 M/uL (4.2-5.4); WHITE BLOOD COUNT 12.76 K/uL (4.8-10.8)
[2016-10-29 23:54] LABS: INR 0.9 (0.9-1.1); PARTIAL THROMBOPLASTIN RATIO 0.9; PROTHROMBIN TIME (PATIENT) 9.6 SECONDS (9.0-12.0)
[2016-10-29 23:58] LABS: ALT/SGPT 36 U/L (12-78); BLOOD UREA NITROGEN 9 mg/dl (7-18); BUN/CREATININE RATIO 11.9 (10-20); C-REACTIVE PROTEIN 0.76 mg/dl (0-0.29); CALCIUM 9.7 mg/dl (8.5-10.1); CARBON DIOXIDE 27 mmol/L (21-32); CHLORIDE 107 mmol/L (98-107); CREATININE 0.74 mg/dl (0.60-1.20); GLUCOSE 123 mg/dl (70-99); POTASSIUM 3.7 mmol/L (3.5-5.1); SODIUM 140 mmol/L (136-145)
[2016-10-30] MEDS ORDERED: GI COCKTAIL PO STA (00:09)
[2016-10-30 00:14] LABS: ALKALINE PHOSPHATASE 116 U/L (45-117); AST/SGOT 17 U/L (15-37); CKMB/CK RATIO 0.7 (0-3.0)
[2016-10-30] MEDS ORDERED: ALUMINUM/MAGNESIUM SUSP 30 ML UDC ONE (00:36)
[2016-10-30] MEDS ORDERED: LIDOCAINE HCL 2% VISC SOLN 20 ML UDC ONE (00:36)
[2016-10-30] MEDS ORDERED: MoRPHine SULFATE 4 MG/ML 1 ML CARP\\VIAL IV STA (01:46)
[2016-10-30] MEDS ORDERED: OXYCODONE IR HOME PACK PO ONE (02:00)
[2016-10-30 02:15] VITALS: BP 128/2; PULSE 86; O2SAT 97
--- NOTE | 2016-10-30 02:42 | EMERGENCY ROOM VISIT NOTE ---
History Report prepared by Brady: Amandeep Castellanos Under the Supervision of: Dr. Kolby Paige M.D. First contact with patient: 22:26 Chief Complaint: ABDOMINAL PAIN Stated Complaint: L CHEST,L BACK PAIN, HEARTBURN, NOT CARDICAC Nursing Triage Summary: Patient has had ongoing epigastric abdominal pain. Has had numerous work ups in the ED and outpatient. Patient reports she has had no relief with any diagnostics or interventions. Patient reports, "I just can't take it anymore." Patient denies any vomiting, reports epigatric burning, negative SOB/diaphoresis or syncope. History of Present Illness The patient is a 51 year old female who presents to the Emergency Room with complaints of constant, sharp, left-sided chest pain beginning a couple weeks ago. The patient states that she has been to the ER multiple times, and she went to her PCP. The patient notes that her PCP put her on Carafate and it helped until she stopped taking it. She states that she tried narco and Percocet , but they did not help. The patient reports that the doctors think she has costochondritis. She notes that she tried having a stress test done, but her heart rate dropped and the test was terminated. The patient states that when she was given prednisone, it helped a little. She reports that she started experiencing gastroesophageal reflux three days ago, and she has been belching more frequently. Pt denies LOC, headache, fevers, chills, diaphoresis, visual changes, neck pain, breathing difficulties, nausea, vomiting, abdominal pain, melena, hematochezia, urinary symptoms, numbness, weakness, lymphadenopathy, rash, or other complaints. She reports that she has a history of fibromyalgia and DM. The patient notes that she has a sliding scale of blood glucose, and she can control it easily with insulin injections. She denies a history of blood clots and an aneurysm. Source of History: patient Onset: couple weeks ago Position: chest (left) Quality: sharp Timing: constant Associated Symptoms: + back pain Note: Associated symptoms: gastroesophageal reflux and belching. Review of Systems See HPI for pertinent positives and negatives. A total of ten systems were reviewed and were otherwise negative. Past Medical & Surgical Medical Problems: (1) Anxiety (2) Appendectomy (3) Asthma (4) Bilateral inguinal hernia repair (5) Cholecystitis (6) Diabetes mellitus type 2 (7) fibromyalgia (8) History of - tubal ligation (9) Left total knee revision in 03/09 (10) presyncope (11) seasonal allergies Family History Cancer Colon cancer Diabetes mellitus Gallbladder disease Heart disease Hypertension Lung disease Social History Smoking Status: Current Every Day Smoker Alcohol Use: none Drug Use: marijuana Marital Status: Housing Status: lives with family Occupation Status: unemployed Current/Historical Medications Scheduled Atorvastatin (Lipitor), 40 MG PO HS Baclofen (Baclofen), 10 MG PO BID Calcium Carbonate-Vitamin D (Calcium), 1 TAB PO DAILY Cetirizine (Zyrtec), 10 MG PO QAM Cholecalciferol (Vitamin D3), 1 TAB PO DAILY Cinnamon (Cinnamon), 500 MG PO DAILY Duloxetine Hcl (Cymbalta), 60 MG PO DAILY Fluticasone Prop/Salmeterol (Advair Diskus 500/50 60 Dose), 1 PUFF INH BID Gabapentin (Neurontin), 100 MG PO HS Glimepiride (Amaryl), 4 MG PO QAM Insulin Glargine (Lantus), 50 UNITS SC QPM Krill Oil (Krill Oil), 1 CAP PO DAILY Magnesium Oxide (Mag-Ox), 400 MG PO DAILY Metformin Hcl (Glucophage), 500 MG PO BID Milk Thistle Seed (Bulk) (Milk Thistle), Unknown Dose PO DAILY Multivitamin (Multivitamin), 1 TAB PO DAILY Omeprazole (Prilosec), 40 MG PO DAILY Sucralfate (Carafate), 10 ML PO ACHS Turmeric (Curcuma Longa) (Turmeric), 500 MG PO BID Scheduled PRN Albuterol Hfa (Ventolin Hfa), 2 PUFFS INH Q6H PRN for Shortness of Breath Albuterol Sulfate (Albuterol Sulfate), 1 VIAL INH Q4H PRN for SOB/Wheezing Fluticasone Propionate (Nasal) (Flonase Allergy Relief), 2 SPRAYS DANIKA DAILY PRN for Nasal Congestion Hydrocodone/Acetaminophen 10MG/325MG ([place] 10MG/325MG), 1 TAB PO Q6H PRN for Pain Insulin Glulisine (Apidra), 3-4 UNITS SQ AC PRN for Coverage Lorazepam (Ativan), 1 MG PO TID PRN for Anxiety/Agitation Ondansetron (Ondansetron HCl), 4 MG SL Q6H PRN for Nausea Allergies Coded Allergies: Amoxicillin (Verified Allergy, Mild, RASH, 10/29/16) Benzonatate (Verified Allergy, Mild, RASH, 10/29/16) Clindamycin (Verified Adverse Reaction, Severe, GI UPSET, 10/29/16) Doxycycline (Verified Adverse Reaction, Severe, VOMIT, 10/29/16) Tetracycline (Verified Adverse Reaction, Severe, VOMIT, 10/29/16) NSAIDs (Verified Adverse Reaction, Intermediate, nausea, 10/29/16) Hydromorphone (Verified Adverse Reaction, Unknown, severe headache, ) Physical Exam Vital Signs Date Time Temp Pulse Resp B/P (MAP) Pulse Ox O2 Delivery O2 Flow Rate FiO2 10/30/16 02:15 86 20 128/2 97 10/30/16 01:40 88 20 123/63 96 Room Air 10/30/16 00:42 87 20 130/86 96 Room Air 10/30/16 00:05 83 20 155/75 98 Room Air 10/29/16 23:34 94 10/29/16 23:26 95 Room Air 10/29/16 23:26 94 20 130/82 95 Room Air 10/29/16 21:31 37.0 103 22 135/84 96 Room Air Physical Exam GENERAL: Awake, alert, tearful and uncomfortable appearing. HENT: Normocephalic, atraumatic. Oropharynx unremarkable. EYES: Normal conjunctiva. Sclera non-icteric. NECK: Supple. No nuchal rigidity. FROM. No JVD. RESPIRATORY: Clear to auscultation. CARDIAC: Regular rate, normal rhythm. Extremities warm and well perfused. Pulses equal. ABDOMEN: Soft, non-distended. No tenderness to palpation. No rebound or guarding. No masses. RECTAL: Deferred. MUSCULOSKELETAL: Chest examination reveals left costal margins are tender to palpation. The back is symmetrical on inspection without obvious abnormality. There is no CVA tenderness to palpation. No joint edema. LOWER EXTREMITIES: Calves are equal size bilaterally and non-tender. No edema. No discoloration. NEURO: Normal sensorium. No sensory or motor deficits noted. SKIN: No rash or jaundice noted. Medical Decision & Procedures ER Provider Diagnostic Interpretation: Radiology results as stated below per my review and radiologist interpretation: CHEST ONE VIEW PORTABLE CLINICAL HISTORY: Weakness. Left-sided chest pain. COMPARISON STUDY: Chest radiograph and chest CT October 17, 2016. FINDINGS: There is no pneumothorax or pleural effusion. Cardiomediastinal silhouette is normal. There is no evidence of pulmonary edema. There is no consolidation to suggest pneumonia. Mild left basilar opacity favors atelectasis. IMPRESSION: 1. No acute cardiopulmonary findings. 2. Mild left basilar opacity which favors atelectasis. Electronically signed by: Nagi Rosa M.D. 10/29/2016 10:57 PM Dictated Date/Time: 10/29/2016 10:56 PM CTA CHEST: Comparison: CT chest 11/30/09 No pulmonary embolism detected. No consolidation. No pleural effusion or pneumothorax. Heart size is normal. No pericardial effusion. Gallbladder is surgically absent. Subacute to chronic anterior left 6th rib fracture. Radiologist: Yung Walters MD Study ready at 00:49 and initial results transmitted at 01:30. Laboratory Results 10/29/16 23:25 Red Blood Count 5.17, Mean Corpuscular Volume 83.8, Mean Corpuscular Hemoglobin 28.0, Mean Corpuscular Hemoglobin Concent 33.5, Mean Platelet Volume 8.9, Neutrophils (%) (Auto) 57.3, Lymphocytes (%) (Auto) 31.7, Monocytes (%) (Auto) 8.5, Eosinophils (%) (Auto) 1.6, Basophils (%) (Auto) 0.5, Neutrophils # (Auto) 7.32, Lymphocytes # (Auto) 4.04, Monocytes # (Auto) 1.08, Eosinophils # (Auto) 0.20, Basophils # (Auto) 0.07 10/29/16 23:25 Test 10/29/16 23:25 White Blood Count 12.76 K/uL (4.8-10.8) Red Blood Count 5.17 M/uL (4.2-5.4) Hemoglobin 14.5 g/dL (12.0-16.0) Hematocrit 43.3 % (37-47) Mean Corpuscular Volume 83.8 fL (80-100) Mean Corpuscular Hemoglobin 28.0 pg (25-34) Mean Corpuscular Hemoglobin Concent 33.5 g/dl (32-36) Platelet Count 330 K/uL (130-400) Mean Platelet Volume 8.9 fL (7.4-10.4) Neutrophils (%) (Auto) 57.3 % Lymphocytes (%) (Auto) 31.7 % Monocytes (%) (Auto) 8.5 % Eosinophils (%) (Auto) 1.6 % Basophils (%) (Auto) 0.5 % Neutrophils # (Auto) 7.32 K/uL (1.4-6.5) Lymphocytes # (Auto) 4.04 K/uL (1.2-3.4) Monocytes # (Auto) 1.08 K/uL (0.11-0.59) Eosinophils # (Auto) 0.20 K/uL (0-0.5) Basophils # (Auto) 0.07 K/uL (0-0.2) RDW Standard Deviation 45.0 fL (36.4-46.3) RDW Coefficient of Variation 14.6 % (11.5-14.5) Immature Granulocyte % (Auto) 0.4 % Immature Granulocyte # (Auto) 0.05 K/uL (0.00-0.02) Erythrocyte Sedimentation Rate 36 mm/hr (0-21) Prothrombin Time 9.6 SECONDS (9.0-12.0) Prothromb Time International Ratio 0.9 (0.9-1.1) Activated Partial Thromboplast Time 24.3 SECONDS (21.0-31.0) Partial Thromboplastin Ratio 0.9 Anion Gap 6.0 mmol/L (3-11) Est Creatinine Clear Calc Drug Dose 104.8 ml/min Estimated GFR () 107.2 Estimated GFR (Non- 92.5 BUN/Creatinine Ratio 11.9 (10-20) Calcium Level 9.7 mg/dl (8.5-10.1) Magnesium Level 2.0 mg/dl (1.8-2.4) Total Bilirubin 0.4 mg/dl (0.2-1) Direct Bilirubin < 0.1 mg/dl (0-0.2) Aspartate Amino Transf (AST/SGOT) 17 U/L (15-37) Alanine Aminotransferase (ALT/SGPT) 36 U/L (12-78) Alkaline Phosphatase 116 U/L (45-117) Total Creatine Kinase 104 U/L (26-192) Creatine Kinase MB 0.7 ng/ml (0.5-3.6) Creatine Kinase MB Ratio 0.7 (0-3.0) Troponin I < 0.015 ng/ml (0-0.045) C-Reactive Protein 0.76 mg/dl (0-0.29) Total Protein 8.1 gm/dl (6.4-8.2) Albumin 3.7 gm/dl (3.4-5.0) Lipase 188 U/L (73-393) Thyroid Stimulating Hormone (TSH) 1.510 uIu/ml (0.300-4.500) Laboratory results reviewed by me Medications Administered Medications (Trade) Dose Ordered Sig/Darrell Route Start Time Stop Time Status Last Admin Dose Admin Sodium Chloride 1,000 ml @ 125 mls/hr Q8H STAT IV 10/29/16 22:26 10/30/16 06:25 10/29/16 23:44 125 MLS/HR Morphine Sulfate (MoRPHine SULFATE INJ) 8 mg NOW STAT IV 10/29/16 23:29 10/29/16 23:30 DC 10/29/16 23:44 8 MG Al Hydroxide/Mg Hydroxide (Maalox Susp) 30 ml STK-MED ONCE .ROUTE 10/30/16 00:36 10/30/16 00:37 DC 10/30/16 00:40 30 ML Lidocaine HCl (Viscous Lidocaine 2% Soln) 20 ml STK-MED ONCE .ROUTE 10/30/16 00:36 10/30/16 00:37 DC 10/30/16 00:40 20 ML Oxycodone HCl (Roxicodone Immediate Rel 5MG Home Pack) 1 homepack UD ONCE PO 10/30/16 02:00 10/30/16 02:01 DC 10/30/16 01:55 1 HOMEPACK Morphine Sulfate (MoRPHine SULFATE INJ) 4 mg NOW STAT IV 10/30/16 01:46 10/30/16 01:47 DC 10/30/16 01:54 4 MG ECG Indication: chest pain Rate (beats per minute): 92 Rhythm: normal sinus Findings: Q waves (Inferior), no acute ischemic change, other (Poor R-wave progression) Comparison ECG Date: 09/29/16 Change: no significant change ED Course 2226: Ordered Sodium Chloride 1000 ml @ 125 mls/hr IV 2305: The patient was evaluated in room B06. A complete history and physical exam was performed. 2329: Ordered Morphine Sulfate 8mg IV 0036: Ordered Lidocaine HCl 20ml .ROUTE, Maalox Susp 30ml .ROUTE 0041: I reevaluated the patient, and she is feeling better. She just returned from her CT scan. 0144: I reevaluated the patient. Discussed results and discharge instructions: she verbalized understanding and agreement. The patient is ready for discharge. 0146: Ordered Morphine Sulfate 4mg IV 0200: Ordered Oxycodone HCl 1 homepack PO Medical Decision Medication Reconciliation: I attest that I have personally reviewed the patient' s current medication list Blood pressure screening: Patient was found to have an elevated blood pressure and was referred to their primary doctor for recheck and further treatment. Prior records/ancillary studies reviewed. Triage Nursing notes reviewed and agree them. The patient's history was concerning for chest pain. Differential diagnosis: Etiologies such as musculoskeletal, fibromyalgia, pleurisy, cardiac ischemia, aortic dissection, pulmonary embolism, pneumonia, pneumothorax, infections, pericarditis, myocarditis, esophageal rupture, gastrointestinal, as well as others were entertained. Physical examination: As above. The patient was exquisitely tender in the left ribs and costal margin. ER treatment provided: IV normal saline IV Zofran IV morphine 8 mg and then 4 mg Solis cocktail On reassessment the patient felt much better. Diagnostic interpretation by me: The electrocardiogram was negative for pathologic change. The labs revealed a slight leukocytosis on CBC. Minimal elevation of inflammatory markers. The patient had an unremarkable cardiac markers and LFTs. Physical set of markers performed due to the patient's duration of symptoms. Imaging studies: Chest x-ray and CT scan as above The patient has findings on physical examination consistent with costochondritis. She also has tenderness under the left breast and has a left subacute rib fracture. On review of prior imaging this is present although very subtle. The patient denied any trauma but did note previously coughing quite a bit. She does note fibromyalgia and chronic back issues. I think there is a constellation of issues present causing the pain complaints. She is diabetic and I'm reluctant to prescribe her prednisone because of this. She will need close outpatient follow-up and will follow-up with her primary physician tomorrow. She had for some breakthrough medication for tonight and I will give her an oxycodone home pack but no additional pain medication as she has a significant amount of hydrocodone at home. She noted that was not working for her. She will use conservative management and I did discuss following up with not any pain management. She has seen pain management in the past. She will call them tomorrow. She may benefit from a nerve block or other modalities.I gave my usual and customary discussion regarding this issue. By the evaluation outlined above emergent etiologies such as cardiac ischemia, aortic dissection, pulmonary embolism, pneumonia, pneumothorax, infections, pericarditis, myocarditis, gastrointestinal, as well as others were deemed relatively unlikely. The patient was informed about the findings as listed above. All questions were answered and she was very pleased with the treatment. Return instructions were outlined and the patient was discharged in stable condition. Outpatient prescription management: Oxy IR 5mg 1-2 po Q4 hrs prn Referral: The patient was referred back to her pain management and primary care physician for follow-up tomorrow for a recheck of the current condition. The chart was completed utilizing [employer] Speech voice recognition software. Grammatical errors, random word insertions, pronoun errors, and incomplete sentences are an occasional consequence of this system due to software limitations, ambient noise, and hardware issues. Any formal questions or concerns about the content, text, or information contained within the body of this dictation should be directly addressed to the physician for clarification. [place] Drug Monitoring Program Search Results: patient reviewed within database Drug Monitoring Findings: Multiple prescriptions were noted, all form her PCP. Impression Primary Impression: Left sided chest pain Additional Impression: Fracture of rib of left side Scribe Attestation The scribe's documentation has been prepared under my direction and personally reviewed by me in its entirety. I confirm that the note above accurately reflects all work, treatment, procedures, and medical decision making performed by me. Departure Information Dispostion Home / Self-Care Referrals Israel Nicole M.D. (PCP) Patient Instructions ED Chest Pain Costochondritis, ED Fx Rib, [facility] Additional Instructions DO NOT drive, drink alcohol, operate machinery, or perform dangerous activities today. You were given medications in the ER that can affect your ability to safely function or operate a vehicle. Oxycodone (OxyIR) 5mg: Take 1-2 pills every four hours for breakthrough pain. Avoid alcohol, operating machinery or dangerous equipment, working on ladders or roofs, DRIVING, or situations where being under the influence may be dangerous. It is recommended to use an [id number] stool softener such as Colace, 100mg twice daily while taking this medication to avoid constipation. Rest and drink plenty of fluids as tolerated. Continue current medications. Avoid strenuous activities and anything that worsens your pain. Resume normal activities once your symptoms resolve. Return to the ER immediately for worsening or persistent chest pain, abdominal pain, vomiting, fevers, chest pains, difficulty breathing, worsening of your condition, or as needed. Follow up with your primary physician tomorrow for a recheck of your current condition. Call pain management for a follow-up. Call them tomorrow morning. The number is listed below under Dr. Bucio. Problem Qualifiers
--- NOTE | 2016-10-30 07:39 | DIAGNOSTIC IMAGING REPORT ---
CHEST CTA for PULMONARY ARTERIES CT DOSE: 685.65 mGy.cm HISTORY: Mid back pain. TECHNIQUE: Multiaxial CT images of the chest were performed following the intravenous administration of contrast to evaluate the pulmonary arteries. Maximal intensity projection images were also obtained. COMPARISON STUDY: Chest CTA 10/17/2016. FINDINGS: There is a normal caliber thoracic aorta with no evidence for dissection. There is no evidence for pulmonary embolus. No pleural effusions. No pneumothorax. The liver and spleen are unremarkable. No mediastinal or hilar lymphadenopathy. The central airways are patent. Bibasilar linear densities consistent with subsegmental atelectasis. No focal lung consolidations to suggest pneumonia. Cholecystectomy. Normal adrenal glands. Stable 6 mm nodule within the right breast compared to a 2010 examination. Therefore, this is considered to be benign. Healing left anterior sixth rib fracture. No acute rib fractures. IMPRESSION: No evidence for pulmonary embolus. Healing left anterior sixth rib fracture, unchanged. Electronically signed by: Jeremy Russo M.D. 10/30/2016 7:37 AM Dictated Date/Time: 10/30/2016 7:27 AM
[2016-12-24] MEDS ORDERED: LRS10 PO (13:20)
[2016-12-24] MEDS ORDERED: ADVIN50/60 INH (13:20)
[2016-12-24] MEDS ORDERED: ALBU0.633 INH (13:30)
[2016-12-24] MEDS ORDERED: HYDR-4079 PO (15:00)
[2016-12-24] MEDS ORDERED: CETI10TA84 PO (15:00)
[2016-12-24] MEDS ORDERED: INSUINJ5 SC (15:04)
[2016-12-24] MEDS ORDERED: MAGN400T6 PO (19:29)
[2016-12-24] MEDS ORDERED: CHOL20007 PO (21:05)
[2016-12-24] MEDS ORDERED: ATOR-24 PO (21:05)
[2016-12-24] MEDS ORDERED: OMEP40CA41 PO (21:13)
[2016-12-24] MEDS ORDERED: VNTHFA/IN INH (21:13)
[2016-12-24] MEDS ORDERED: CALC-51 PO (21:16)
[2016-12-24] MEDS ORDERED: KRIL1000 PO (21:16)
[2016-12-24] MEDS ORDERED: MILKPOW PO (21:16)
[2016-12-24] MEDS ORDERED: MULT-506 PO (21:16)
[2016-12-24] MEDS ORDERED: CINN1CAP2 PO (21:16)
[2016-12-24] MEDS ORDERED: TURM500T PO (21:16)
== END 2016-10-30 02:15 | disposition home or self-care (01) ==
LOC: C.EDB 21:24
DX: R07.9 Chest pain, unspecified (principal); S22.32XA Fracture of one rib, left side, initial encounter for closed fracture; K21.9 Gastro-esophageal reflux disease without esophagitis; M54.9 Dorsalgia, unspecified; E11.9 Type 2 diabetes mellitus without complications; M79.7 Fibromyalgia; F41.9 Anxiety disorder, unspecified; J45.909 Unspecified asthma, uncomplicated; Z79.4 Long term (current) use of insulin; Z79.899 Other long term (current) drug therapy; Z80.0 Family history of malignant neoplasm of digestive organs; Z82.49 Family history of ischemic heart disease and other diseases of the circulatory system; Z83.3 Family history of diabetes mellitus; Z83.6 Family history of other diseases of the respiratory system; Z83.79 Family history of other diseases of the digestive system; F17.200 Nicotine dependence, unspecified, uncomplicated; X58.XXXA Exposure to other specified factors, initial encounter

== ENCOUNTER 2016-11-27 14:13 | Emergency (ER) | payer OTHER ==
[~2016-11-27] VITALS: Ht 162.6 cm; Wt 107.1 kg
[~2016-11-27 14:13] MED LIST changes: +CRFL PO; +GABA-112 PO; -MOME200A INH
[2016-11-27 14:15] VITALS: TEMP 36.2; Ht 162.6 cm; Wt 107.1 kg
[2016-11-27] MEDS ORDERED: DiphenhydrAMINE HCL 50 MG/ML VIAL IM STA (14:32)
[2016-11-27] MEDS ORDERED: MoRPHine SULFATE 4 MG/ML 1 ML CARP\\VIAL IM STA (14:32)
[2016-11-27] MEDS ORDERED: GI COCKTAIL PO STA (14:32)
[2016-11-27] MEDS ORDERED: KETOROLAC TROMETHAMINE 60 MG/2 ML VIAL IM STA (14:32)
[2016-11-27] MEDS ORDERED: LIDOCAINE HCL 2% VISC SOLN 20 ML UDC ONE (14:38)
[2016-11-27] MEDS ORDERED: ALUMINUM/MAGNESIUM SUSP 30 ML UDC ONE (14:38)
--- NOTE | 2016-11-27 15:05 | EMERGENCY ROOM VISIT NOTE ---
History First contact with patient: 14:19 Chief Complaint: HEADACHE Stated Complaint: MIGRAINE History of Present Illness The patient is a 51 year old female who presents to the Emergency Room with complaints of a migraine headache for the past few days. The patient reports being under a lot of stress at this time with a in her family. The patient also reports a prior history of migraines, and reports that her headache is similar. She describes it as a throbbing sensation on the left side of her head to neck. It is not the worse headache of her life. She reports photophobia and phonophobia with her migraines. She has had nausea without vomiting. She denies any recent head injury, upper respiratory infection or risk of carbon monoxide poisoning. The patient reports that her migraines are infrequent. She does not have anyone in particular that she sees for her migraines. She reports that her migraines were mostly triggered by menses in the past. She is perimenopausal, her migraines frequent. She currently rates her headache an 8 out of 10. The patient does have [place] at home for other pain issues, but reports that when she takes [place], it will usually give her a rebound headache. She does fine with IV or IM morphine, and is requesting some morphine with her treatment. Review of Systems 10 system review was performed and was negative except for pertinent positives and negatives as indicated in history of present illness Past Medical/Surgical History Medical Problems: (1) Anxiety (2) Appendectomy (3) Asthma (4) Bilateral inguinal hernia repair (5) Cholecystitis (6) Diabetes mellitus type 2 (7) fibromyalgia (8) History of - tubal ligation (9) Left total knee revision in 03/09 (10) presyncope (11) seasonal allergies Family History Cancer Colon cancer Diabetes mellitus Gallbladder disease Heart disease Hypertension Lung disease Social History Smoking Status: Current Every Day Smoker Alcohol Use: none Drug Use: marijuana Marital Status: Housing Status: lives with family Occupation Status: unemployed Current/Historical Medications Scheduled Atorvastatin (Lipitor), 40 MG PO HS Baclofen (Baclofen), 10 MG PO BID Calcium Carbonate-Vitamin D (Calcium), 1 TAB PO DAILY Cetirizine (Zyrtec), 10 MG PO QAM Cholecalciferol (Vitamin D3), 1 TAB PO DAILY Cinnamon (Cinnamon), 500 MG PO DAILY Duloxetine Hcl (Cymbalta), 60 MG PO DAILY Fluticasone Prop/Salmeterol (Advair Diskus 500/50 60 Dose), 1 PUFF INH BID Glimepiride (Amaryl), 4 MG PO QAM Insulin Glargine (Lantus), 50 UNITS SC QPM Krill Oil (Krill Oil), 1 CAP PO DAILY Magnesium Oxide (Mag-Ox), 400 MG PO DAILY Metformin Hcl (Glucophage), 500 MG PO BID Milk Thistle Seed (Bulk) (Milk Thistle), Unknown Dose PO DAILY Multivitamin (Multivitamin), 1 TAB PO DAILY Omeprazole (Prilosec), 40 MG PO DAILY Sucralfate (Carafate), 10 ML PO ACHS Turmeric (Curcuma Longa) (Turmeric), 500 MG PO BID Scheduled PRN Albuterol Hfa (Ventolin Hfa), 2 PUFFS INH Q6H PRN for Shortness of Breath Albuterol Sulfate (Albuterol Sulfate), 1 VIAL INH Q4H PRN for SOB/Wheezing Fluticasone Propionate (Nasal) (Flonase Allergy Relief), 2 SPRAYS DANIKA DAILY PRN for Nasal Congestion Hydrocodone/Acetaminophen 10MG/325MG ([place] 10MG/325MG), 1 TAB PO Q6H PRN for Pain Insulin Glulisine (Apidra), 3-4 UNITS SQ AC PRN for Coverage Lorazepam (Ativan), 1 MG PO TID PRN for Anxiety/Agitation Ondansetron (Ondansetron HCl), 4 MG SL Q6H PRN for Nausea Physical Exam Vital Signs Date Time Temp Pulse Resp B/P (MAP) Pulse Ox O2 Delivery O2 Flow Rate FiO2 11/27/16 14:15 36.2 90 16 153/97 96 Room Air Physical Exam CONSTITUTIONAL: Healthy and well nourished. Alert and oriented X 3 with positive affect. Patient appears in moderate discomfort. HEENT: Normocephalic, atraumatic. Pupils equal, round and reactive. No scleral icterus or conjunctival injection/pallor. The patient is photophobic, precluding funduscopic exam. NECK: Full active range of motion without discomfort. No JVD or carotid bruits. No nuchal rigidity. RESPIRATORY: Clear to auscultation bilaterally with no wheezing, crackles, rhonchi or stridor. CARDIOVASCULAR: Regular rate and rhythm with no murmurs, rubs or gallops. MUSCULOSKELETAL: Full range of motion of all joints without discomfort. INTEGUMENTARY: No rash or other significant dermatologic conditions noted. NEUROLOGIC: o focal neurologic deficits noted. No ataxia with ambulation. Negative pronator drift. Medical Decision & Procedures Medications Administered Medications (Trade) Dose Ordered Sig/Darrell Route Start Time Stop Time Status Last Admin Dose Admin Morphine Sulfate (MoRPHine SULFATE INJ) 4 mg NOW STAT IM 11/27/16 14:32 11/27/16 14:34 DC 11/27/16 14:32 4 MG Ketorolac Tromethamine (Toradol Inj) 60 mg NOW STAT IM 11/27/16 14:32 11/27/16 14:34 DC 11/27/16 14:32 60 MG Diphenhydramine HCl (Benadryl Inj) 25 mg NOW STAT IM 11/27/16 14:32 11/27/16 14:34 DC 11/27/16 14:32 25 MG Al Hydroxide/Mg Hydroxide (Maalox Susp) 30 ml STK-MED ONCE .ROUTE 11/27/16 14:38 11/27/16 14:39 DC 11/27/16 14:38 30 ML Lidocaine HCl (Viscous Lidocaine 2% Soln) 20 ml STK-MED ONCE .ROUTE 11/27/16 14:38 11/27/16 14:39 DC 11/27/16 14:38 20 ML ED Course Patient history and physical exam were performed. Nurse's notes were reviewed. Vital signs were reviewed to show rare visits for migraines. The patient has been treated in the past with parenteral and intramuscular administration. The patient also requested a GI cocktail as Toradol usually upsets her stomach, but does provide effective relief of her migraines. The patient was therefore administered morphine 4 mg, Toradol 60 mg and Benadryl 25 mg IM. She also received a GI cocktail. This reduced the patient's headache to a 4 out of 10 at the time of discharge. The patient was instructed to rest and remain well- hydrated. She was instructed to follow-up with her PCP for any persistent migraine, returning to the emergency department for any significant worsening pain, neurologic symptoms, fever or other concerning symptoms. The patient was happy with plan of care, and voiced understanding of all discharge instructions. It is noted that the patient's blood pressure is 153/97. The patient was instructed to follow-up with her PCP for blood pressure recheck. Medical Decision The patient does report a prior history of migraines, and reports that this headache is similar to all prior migraines. Based on history and physical exam findings, I do not feel that further laboratory or imaging studies are warranted. I do not suspect intracranial bleed, abscess, TVA/TIA, thromboembolic event or carbon monoxide poisoning. Medication Reconcilliation Current Medication List: was personally reviewed by me Blood Pressure Screening Patient's blood pressure: Elevated blood pressure Blood pressure disposition: Referred to PCP Impression Primary Impression: Migraine Additional Impression: Elevated blood pressure reading Departure Information Referrals No Doctor, Assigned (PCP) Patient Instructions My [facility] Problem Qualifiers Primary Impression: Migraine Migraine type: unspecified Status migrainosus presence: without status migrainosus Intractability: not intractable Qualified Codes: G43.909 - Migraine, unspecified, not intractable, without status migrainosus
[2016-11-27 15:20] VITALS: BP 123/89; PULSE 79; O2SAT 96
[2016-11-27] MEDS ORDERED: PRED10TA PO (15:22)
[2016-12-24] MEDS ORDERED: ADVIN50/60 INH (13:20)
[2016-12-24] MEDS ORDERED: LRS10 PO (13:20)
[2016-12-24] MEDS ORDERED: ALBU0.633 INH (13:30)
[2016-12-24] MEDS ORDERED: CETI10TA84 PO (15:00)
[2016-12-24] MEDS ORDERED: HYDR-4079 PO (15:00)
[2016-12-24] MEDS ORDERED: INSUINJ5 SC (15:04)
[2016-12-24] MEDS ORDERED: MAGN400T6 PO (19:29)
[2016-12-24] MEDS ORDERED: CHOL20007 PO (21:05)
[2016-12-24] MEDS ORDERED: ATOR-24 PO (21:05)
[2016-12-24] MEDS ORDERED: OMEP40CA41 PO (21:13)
[2016-12-24] MEDS ORDERED: VNTHFA/IN INH (21:13)
[2016-12-24] MEDS ORDERED: MULT-506 PO (21:16)
[2016-12-24] MEDS ORDERED: TURM500T PO (21:16)
[2016-12-24] MEDS ORDERED: CINN1CAP2 PO (21:16)
[2016-12-24] MEDS ORDERED: CALC-51 PO (21:16)
[2016-12-24] MEDS ORDERED: KRIL1000 PO (21:16)
[2016-12-24] MEDS ORDERED: MILKPOW PO (21:16)
== END 2016-11-27 15:17 | disposition home or self-care (01) ==
LOC: C.EDB 14:14 → C.EDD 15:17
DX: G43.909 Migraine, unspecified, not intractable, without status migrainosus (principal); R03.0 Elevated blood-pressure reading, without diagnosis of hypertension; F41.9 Anxiety disorder, unspecified; J45.909 Unspecified asthma, uncomplicated; E11.9 Type 2 diabetes mellitus without complications; M79.7 Fibromyalgia; Z83.3 Family history of diabetes mellitus; Z82.49 Family history of ischemic heart disease and other diseases of the circulatory system; F17.200 Nicotine dependence, unspecified, uncomplicated; F12.90 Cannabis use, unspecified, uncomplicated; Z79.4 Long term (current) use of insulin; M54.2 Cervicalgia; M25.522 Pain in left elbow; Z90.89 Acquired absence of other organs; Z80.0 Family history of malignant neoplasm of digestive organs; Z79.84 Long term (current) use of oral hypoglycemic drugs; S22.32XD Fracture of one rib, left side, subsequent encounter for fracture with routine healing; X58.XXXD Exposure to other specified factors, subsequent encounter

== ENCOUNTER 2016-12-24 21:55 | Emergency (ER) | payer OTHER ==
[~2016-12-24] VITALS: Ht 162.6 cm; Wt 107.8 kg
[~2016-12-24 21:55] MED LIST changes: +ADVIN50/60 INH; +ALBU0.633 INH; +ATOR-24 PO; +CALC-51 PO; +CETI10TA84 PO; +CHOL20007 PO; +CINN1CAP2 PO; -GABA-112 PO; +HYDR-4079 PO; +INSUINJ5 SC; +KRIL1000 PO; +LRS10 PO; +MAGN400T6 PO; +MILKPOW PO; +MULT-506 PO; +OMEP40CA41 PO; +PRED10TA PO; +TURM500T PO; +VNTHFA/IN INH
[2016-12-24 21:59] VITALS: TEMP 36.7; Ht 162.6 cm; Wt 107.8 kg
[2016-12-24] MEDS ORDERED: GLC500 PO (22:33)
[2016-12-24] MEDS ORDERED: GLIM4TAB2 PO (22:33)
[2016-12-24] MEDS ORDERED: INSDGIPEN SC (22:33)
[2016-12-24] MEDS ORDERED: LORA1TAB13 PO (22:33)
[2016-12-24] MEDS ORDERED: CYM60 PO (22:33)
[2016-12-24] MEDS ORDERED: FLNIN/ NAE (22:35)
[2016-12-24] MEDS ORDERED: ONDA4TAB10 SL (22:41)
--- NOTE | 2016-12-24 22:41 | EMERGENCY ROOM VISIT NOTE ---
History Report prepared by Brady: Amandeep Castellanos Under the Supervision of: Dr. Carina Silva D.O. First contact with patient: 22:18 Chief Complaint: SKIN PROBLEM Stated Complaint: RED HARD SORE AREA, RIGHT SIDE History of Present Illness The patient is a 51 year old female who presents to the Emergency Room with complaints of a constant, sore, rash located on her right flank beginning this evening. The patient states that she first noticed her rash this evening and came straight to the ED. She reports that she has a history of skin cancer, and she was worried that it may be similar. The patient notes that she was feverish and had the chills. She states that she has a history of diabetes mellitus. The patient denies a tick bite, other rashes, a history of MRSA, allergies to Sulfa , vomiting, diarrhea, and a history of Lyme's disease. Source of History: patient Onset: this evening Position: other (right flank) Quality: other (rash) Timing: constant Associated Symptoms: + fevers, + chills, No diarrhea, No rash (other) Note: Denies: tick bite Review of Systems See HPI for pertinent positives & negatives. A total of 10 systems reviewed and were otherwise negative. Past Medical & Surgical Medical Problems: (1) Anxiety (2) Appendectomy (3) Asthma (4) Bilateral inguinal hernia repair (5) Cholecystitis (6) Diabetes mellitus type 2 (7) fibromyalgia (8) History of - tubal ligation (9) Left total knee revision in 03/09 (10) presyncope (11) seasonal allergies Family History Cancer Colon cancer Diabetes mellitus Gallbladder disease Heart disease Hypertension Lung disease Social History Smoking Status: Current Every Day Smoker Alcohol Use: none Drug Use: marijuana Marital Status: Housing Status: lives with family Occupation Status: unemployed Current/Historical Medications Scheduled Atorvastatin (Lipitor), 40 MG PO HS Calcium Carbonate-Vitamin D (Calcium), 1 TAB PO DAILY Cefuroxime Axetil (Cefuroxime Axetil), 1 TAB PO BID Cetirizine (Zyrtec), 10 MG PO QAM Cholecalciferol (Vitamin D3), 2,000 INTER.UNIT PO DAILY Cinnamon (Cinnamon), 500 MG PO DAILY Duloxetine HCl (Duloxetine HCl), 60 MG PO DAILY Fluticasone Prop/Salmeterol (Advair Diskus 500/50 60 Dose), 1 PUFF INH BID Glimepiride (Glimepiride), 4 MG PO QAM Insulin Glargine (Lantus Solostar), 50 UNITS SC QPM Krill Oil (Krill Oil), 1 CAP PO DAILY Magnesium Oxide (Mag-Ox), 400 MG PO DAILY Metformin HCl (Metformin HCl), 500 MG PO BID Milk Thistle Seed (Bulk) (Milk Thistle), 1 DOSE PO DAILY Multivitamin (Multivitamin), 1 TAB PO DAILY Omeprazole (Prilosec), 40 MG PO DAILY Sulfa/Trimethoprim (Bactrim Ds 800MG/160MG), 1 TAB PO BID Turmeric (Curcuma Longa) (Turmeric), 500 MG PO BID Scheduled PRN Albuterol Hfa (Ventolin Hfa), 2 PUFFS INH Q6H PRN for Shortness of Breath Albuterol Sulfate (Albuterol Sulfate), 1 VIAL INH Q4H PRN for SOB/Wheezing Baclofen (Baclofen), 10 MG PO BID PRN for Muscle Spasm Fluticasone Propionate (Fluticasone Propionate), 2 SPRAYS DANIKA DAILY PRN for Allergy Symptoms Hydrocodone/Acetaminophen 10MG/325MG ([place] 10MG/325MG), 1 TAB PO Q6H PRN for Pain Insulin Glulisine (Apidra), 1 DOSE SC AC PRN for Coverage Lorazepam (Lorazepam), 1 MG PO TID PRN for Anxiety Ondasetron Odt (Zofran Odt), 4 MG SL Q6H PRN for Nausea Allergies Coded Allergies: Pregabalin (Unverified Allergy, Intermediate, HIVES, 12/24/16) Amoxicillin (Verified Allergy, Mild, RASH, 12/24/16) Benzonatate (Verified Allergy, Mild, RASH, 12/24/16) Clindamycin (Verified Adverse Reaction, Severe, GI UPSET, 12/24/16) Doxycycline (Verified Adverse Reaction, Severe, VOMIT, 12/24/16) Tetracycline (Verified Adverse Reaction, Severe, VOMIT, 12/24/16) NSAIDs (Verified Adverse Reaction, Intermediate, nausea, 12/24/16) Hydromorphone (Verified Adverse Reaction, Unknown, severe headache, ) Physical Exam Vital Signs Date Time Temp Pulse Resp B/P (MAP) Pulse Ox O2 Delivery O2 Flow Rate FiO2 12/24/16 23:22 87 18 136/76 96 Room Air 12/24/16 21:59 36.7 97 20 139/81 96 Room Air Physical Exam GENERAL: alert, well appearing, well nourished, no distress, non-toxic EYE EXAM: normal conjunctiva, PERRL and EOM's grossly intact OROPHARYNX: no exudate, no erythema, lips, buccal mucosa, and tongue normal and mucous membranes are moist NECK: supple, no nuchal rigidity, no adenopathy, non-tender LUNGS: Clear to auscultation. Normal chest wall mechanics HEART: no murmurs, S1 normal and S2 normal ABDOMEN: abdomen soft, non-tender, normo-active bowel sounds, no masses, no rebound or guarding. BACK: Back is symmetrical on inspection and there is no deformity, no midline tenderness, no CVA tenderness. SKIN: no bruising. 3cm x 6cm erythematous area to the right flank with central induration, no weeping. It was outlined using a sterile marker during the examination. No areas of fluctuance, no vesicles, no bullae, no petechiae, no appearance bull's-eye rash UPPER EXTREMITIES: upper extremities are grossly normal. LOWER EXTREMITIES: No pitting edema. NEURO EXAM: Normal sensorium, cranial nerves II-XII grossly intact, normal speech, no gross weakness of arms, no gross weakness of legs. Medical Decision & Procedures Medications Administered Medications (Trade) Dose Ordered Sig/Darrell Route Start Time Stop Time Status Last Admin Dose Admin Trimethoprim/ Sulfamethoxazole (Septra Ds 800/ 160MG Tab) 1 tab NOW STAT PO 12/24/16 23:02 12/24/16 23:04 DC 12/24/16 23:20 1 TAB Cefuroxime Axetil (Ceftin Tab) 500 mg NOW STAT PO 12/24/16 23:02 12/24/16 23:04 DC 12/24/16 23:20 500 MG ED Course 2248: The patient was evaluated in room A02. A complete history and physical exam was performed. I discussed the physical exam findings with the patient. I also discussed the treatment plan and discharge instructions. She verbalized complete understanding and agreement. The patient will be discharged after she receives her medication. 2301: Ordered Ceftin Tab 500mg PO, Trimethoprim/Sulfamethoxazole 1 tab PO Medical Decision Differential diagnosis: Etiologies such as contact dermatitis, viral exanthem, urticaria, allergic reaction, Joshi-Marcos syndrome, toxic epidermal necrolysis, erythema multiforme, cellulitis, scabies, HSV, varicella, zoster, eczema, staph scalded skin syndrome, fungal infection, as well as others were entertained. Anabiotic's chosen based on patient's risks given diabetic status, as well as endemic area for Lyme's disease. Patient states unable to tolerate doxycycline. Patient double covered then for possible MRSA as well as limes. Patient with no other systemic symptoms at this time, otherwise well-appearing, afebrile vital signs stable. No evidence for Joshi-Marcos syndrome or TEN, no evidence for acute abscess requiring I&D. Discussed with patient close follow-up with family doctor, monitoring of involved area as was outlined with the sterile marking pen, use of antibiotics and encouraged probiotics during this time, discussed usual treatment course for Lyme's disease and follow-up with family doctor to check blood work for Lyme's exposure. Discussed symptoms to watch and return for, she verbalized understanding was agreeable with plan. Medication Reconcilliation Current Medication List: was personally reviewed by me Blood Pressure Screening Patient's blood pressure: Elevated blood pressure Blood pressure disposition: Elevated BP felt to be situational Impression Primary Impression: Skin rash Additional Impressions: Obesity Hypertension Scribe Attestation The scribe's documentation has been prepared under my direction and personally reviewed by me in its entirety. I confirm that the note above accurately reflects all work, treatment, procedures, and medical decision making performed by me. Departure Information Dispostion Home / Self-Care Prescriptions Cefuroxime Axetil (CEFUROXIME AXETIL) 500 Mg Tab 1 TAB PO BID for 14 Days, #28 TAB Prov: Carina Silva, DO 12/24/16 Sulfa/Trimethoprim (Bactrim Ds 800MG/160MG) Tab 1 TAB PO BID, #14 TAB Prov: Carina Silva, DO 12/24/16 Referrals Israel Nicole M.D. (PCP) Forms HOME CARE DOCUMENTATION FORM, IMPORTANT VISIT INFORMATION, WORK / SCHOOL INSTRUCTIONS Patient Instructions My [facility] Additional Instructions Please take the antibiotics as prescribed. Please consider taking a probiotic while you're using antibiotics. Please drink plenty of water. Please continue regular medications and checked her blood sugar frequently as it can vary when your body is fighting an infection. Please have your family doctor recheck the area the beginning of the week. If it spreads outside the purple lines that were drawn around it, you develop fevers or chills, weeping or drainage from the area, increased pain at the area, trouble breathing, vomiting, joint pain, you have any other new concerns, please return the emergency room. One of the antibiotics will also cover for possible Lyme's disease given we live in an endemic area. Your family doctor can send you for blood work to verify Lyme's exposure as an outpatient. Problem Qualifiers Additional Impressions: Obesity Obesity type: due to excess calories Obesity classification: unspecified obesity classification Serious obesity comorbidity presence: without serious comorbidity Qualified Codes: E66.09 - Other obesity due to excess calories Hypertension Hypertension type: essential hypertension Qualified Codes: I10 - Essential ( primary) hypertension
[2016-12-24] MEDS ORDERED: CEFUROXIME AXETIL 500 MG TAB PO STA (23:02)
[2016-12-24] MEDS ORDERED: SULFAMETHOXAZOLE/TRIMETHOPRIM DS 800/160MG TAB PO STA (23:02)
[2016-12-24] MEDS ORDERED: CEFU1TAB36 PO (23:18)
[2016-12-24] MEDS ORDERED: SULF800T23 PO (23:18)
[2016-12-24 23:22] VITALS: BP 136/76; PULSE 87; O2SAT 96
== END 2016-12-24 23:25 | disposition home or self-care (01) ==
LOC: C.EDB 21:56 → C.EDA 23:25
DX: R21 Rash and other nonspecific skin eruption (principal); E66.09 Other obesity due to excess calories; I10 Essential (primary) hypertension; F41.9 Anxiety disorder, unspecified; J45.909 Unspecified asthma, uncomplicated; E11.9 Type 2 diabetes mellitus without complications; M79.7 Fibromyalgia; Z80.9 Family history of malignant neoplasm, unspecified; Z83.3 Family history of diabetes mellitus; Z83.79 Family history of other diseases of the digestive system; Z82.49 Family history of ischemic heart disease and other diseases of the circulatory system; Z83.6 Family history of other diseases of the respiratory system; F17.210 Nicotine dependence, cigarettes, uncomplicated; Z79.4 Long term (current) use of insulin; Z79.899 Other long term (current) drug therapy

== ENCOUNTER 2017-03-31 13:47 | Emergency (ER) | payer OTHER ==
[~2017-03-31] VITALS: Ht 162.6 cm; Wt 105.5 kg
[~2017-03-31 13:47] MED LIST changes: -ATV/1 PO; -CRFL PO; +CYM60 PO; -DULO60CA44 PO; +FLNIN/ NAE; -FLUT0.15 NAE; -GLC/500 PO; +GLC500 PO; -GLIM4TAB PO; +GLIM4TAB2 PO; -INSDGI SC; +INSDGIPEN SC; +LORA1TAB13 PO; +ONDA4TAB10 SL; -ONDA4TAB54 SL; -PRED10TA PO; +SULF800T23 PO
[2017-03-31 14:00] VITALS: TEMP 36.9; Ht 162.6 cm; Wt 105.5 kg
[2017-03-31] MEDS ORDERED: PROMETHAZINE HCL 25 MG TAB PO ONE (14:45)
--- NOTE | 2017-03-31 14:47 | EMERGENCY ROOM VISIT NOTE ---
History First contact with patient: 14:29 Chief Complaint: ABDOMINAL PAIN Stated Complaint: LBP, ABDOMINAL PAIN AND DIARRHEA Nursing Triage Summary: pain in the back and tail bone for years she usually takes norco and baclofen that are not working since wednesday. complains she has diarrhea for some time complaines of crampy feeling in the upper left quardant. History of Present Illness The patient is a 52 year old female who presents to the Emergency Room with complaints of left upper abdominal pain that started this morning. She describes as a sharp, stabbing sensation that is constant. She also has had mild nausea. No vomiting. The patient denies any fever or chills. She has had intermittent diarrhea that has been ongoing for approximately 1 month. She has a history of IBS. No recent antibiotic use. The patient is also complaining of lower back pain and tailbone pain. This has been chronic for years. The patient typically takes [place], which she has been taking with minimal relief. She denies any weakness in her lower extremities. No urinary incontinence. Review of Systems 10 system review performed and negative unless noted in HPI or below Past Medical/Surgical History Medical Problems: (1) Anxiety (2) Appendectomy (3) Asthma (4) Bilateral inguinal hernia repair (5) Cholecystitis (6) Diabetes mellitus type 2 (7) fibromyalgia (8) History of - tubal ligation (9) Left total knee revision in 03/09 (10) presyncope (11) seasonal allergies Family History Cancer Colon cancer Diabetes mellitus Gallbladder disease Heart disease Hypertension Lung disease Social History Smoking Status: Current Every Day Smoker Alcohol Use: none Drug Use: marijuana Marital Status: Housing Status: lives with family Occupation Status: unemployed Current/Historical Medications Scheduled Atorvastatin (Lipitor), 40 MG PO HS Calcium Carbonate-Vitamin D (Calcium), 1 TAB PO DAILY Cetirizine (Zyrtec), 10 MG PO QAM Cholecalciferol (Vitamin D3), 2,000 INTER.UNIT PO DAILY Cinnamon (Cinnamon), 500 MG PO DAILY Dicyclomine Hcl (Bentyl), 20 MG PO Q8 Duloxetine HCl (Duloxetine HCl), 60 MG PO DAILY Fluticasone Prop/Salmeterol (Advair Diskus 500/50 60 Dose), 1 PUFF INH BID Glimepiride (Glimepiride), 4 MG PO QAM Insulin Aspart (Novolog Flexpen), SQ AC Insulin Glargine (Lantus Solostar), 50 UNITS SC QPM Krill Oil (Krill Oil), 1 CAP PO DAILY Magnesium Oxide (Mag-Ox), 400 MG PO DAILY Metformin HCl (Metformin HCl), 500 MG PO BID Milk Thistle Seed (Bulk) (Milk Thistle), 1 DOSE PO DAILY Multivitamin (Multivitamin), 1 TAB PO DAILY Omeprazole (Prilosec), 40 MG PO DAILY Turmeric (Curcuma Longa) (Turmeric), 500 MG PO BID Scheduled PRN Albuterol Hfa (Ventolin Hfa), 2 PUFFS INH Q6H PRN for Shortness of Breath Albuterol Sulfate (Albuterol Sulfate), 1 VIAL INH Q4H PRN for SOB/Wheezing Baclofen (Baclofen), 10 MG PO BID PRN for Muscle Spasm Fluticasone Propionate (Fluticasone Propionate), 2 SPRAYS DANIKA DAILY PRN for Allergy Symptoms Hydrocodone/Acetaminophen 10MG/325MG ([place] 10MG/325MG), 1 TAB PO Q6H PRN for Pain Lorazepam (Lorazepam), 1 MG PO TID PRN for Anxiety Ondasetron Odt (Zofran Odt), 4 MG SL Q6H PRN for Nausea Oxycodone Ir (Roxicodone Ir), 1 TAB PO Q4H PRN for Pain Allergies Coded Allergies: Pregabalin (Unverified Allergy, Intermediate, HIVES, 12/24/16) Amoxicillin (Verified Allergy, Mild, RASH, 12/24/16) Benzonatate (Verified Allergy, Mild, RASH, 12/24/16) Clindamycin (Verified Adverse Reaction, Severe, GI UPSET, 12/24/16) Doxycycline (Verified Adverse Reaction, Severe, VOMIT, 12/24/16) Tetracycline (Verified Adverse Reaction, Severe, VOMIT, 12/24/16) NSAIDs (Verified Adverse Reaction, Intermediate, nausea, 12/24/16) Hydromorphone (Verified Adverse Reaction, Unknown, severe headache, ) Physical Exam Vital Signs Date Time Temp Pulse Resp B/P (MAP) Pulse Ox O2 Delivery O2 Flow Rate FiO2 03/31/17 17:11 87 20 151/83 97 03/31/17 16:00 82 20 139/59 97 Room Air 03/31/17 14:00 36.9 100 20 119/74 97 Room Air Physical Exam VITALS: Vitals are noted on the nurse's note and reviewed by myself. Vital signs stable. GENERAL: 52-year-old female, in no acute distress, nondiaphoretic, SKIN: The skin was without rashes, erythema, edema, or bruising. HEAD: Normocephalic atraumatic. MOUTH: Mucous membranes moist. NECK: No nuchal rigidity noted. No JVD. HEART: Regular rate and rhythm without murmurs gallops or rubs. LUNGS: Clear to auscultation bilaterally without wheezes, rales or rhonchi. No accessory muscle use. ABDOMEN: Positive bowel sounds x 4.Soft, tenderness to palpation in the left upper quadrant, without organomegaly. No guarding or rebound tenderness. MUSCULOSKELETAL: No muscle atrophy, erythema, or edema noted. Mild tenderness to palpation noted over the lower lumbar spinous processes. No tenderness over the SI joint bilaterally. Strength 5/5 throughout. NEURO: Patient was alert and oriented to person place and time. Normal sensation to touch. No focal neurological deficits. Medical Decision & Procedures Laboratory Results 03/31/17 14:59 Red Blood Count 5.13, Mean Corpuscular Volume 84.8, Mean Corpuscular Hemoglobin 29.0, Mean Corpuscular Hemoglobin Concent 34.3, Mean Platelet Volume 8.9, Neutrophils (%) (Auto) 63.2, Lymphocytes (%) (Auto) 26.8, Monocytes (%) (Auto) 7.6, Eosinophils (%) (Auto) 1.5, Basophils (%) (Auto) 0.6, Neutrophils # (Auto) 7.37, Lymphocytes # (Auto) 3.12, Monocytes # (Auto) 0.88, Eosinophils # (Auto) 0.18, Basophils # (Auto) 0.07 03/31/17 14:59 Test 03/31/17 14:59 03/31/17 16:30 White Blood Count 11.65 K/uL (4.8-10.8) Red Blood Count 5.13 M/uL (4.2-5.4) Hemoglobin 14.9 g/dL (12.0-16.0) Hematocrit 43.5 % (37-47) Mean Corpuscular Volume 84.8 fL (80-100) Mean Corpuscular Hemoglobin 29.0 pg (25-34) Mean Corpuscular Hemoglobin Concent 34.3 g/dl (32-36) Platelet Count 274 K/uL (130-400) Mean Platelet Volume 8.9 fL (7.4-10.4) Neutrophils (%) (Auto) 63.2 % Lymphocytes (%) (Auto) 26.8 % Monocytes (%) (Auto) 7.6 % Eosinophils (%) (Auto) 1.5 % Basophils (%) (Auto) 0.6 % Neutrophils # (Auto) 7.37 K/uL (1.4-6.5) Lymphocytes # (Auto) 3.12 K/uL (1.2-3.4) Monocytes # (Auto) 0.88 K/uL (0.11-0.59) Eosinophils # (Auto) 0.18 K/uL (0-0.5) Basophils # (Auto) 0.07 K/uL (0-0.2) RDW Standard Deviation 46.2 fL (36.4-46.3) RDW Coefficient of Variation 14.9 % (11.5-14.5) Immature Granulocyte % (Auto) 0.3 % Immature Granulocyte # (Auto) 0.03 K/uL (0.00-0.02) Anion Gap 7.0 mmol/L (3-11) Est Creatinine Clear Calc Drug Dose 105.8 ml/min Estimated GFR () 110.0 Estimated GFR (Non- 94.9 BUN/Creatinine Ratio 7.2 (10-20) Calcium Level 9.3 mg/dl (8.5-10.1) Total Bilirubin 0.6 mg/dl (0.2-1) Aspartate Amino Transf (AST/SGOT) 16 U/L (15-37) Alanine Aminotransferase (ALT/SGPT) 27 U/L (12-78) Alkaline Phosphatase 105 U/L (45-117) Total Protein 8.2 gm/dl (6.4-8.2) Albumin 3.7 gm/dl (3.4-5.0) Globulin 4.5 gm/dl (2.5-4.0) Albumin/Globulin Ratio 0.8 (0.9-2) Lipase 119 U/L (73-393) Urine Color YELLOW Urine Appearance CLEAR (CLEAR) Urine pH 6.0 (4.5-7.5) Urine Specific [place] 1.005 (1.000-1.030) Urine Protein NEG (NEG) Urine Glucose (UA) NEG (NEG) Urine Ketones NEG (NEG) Urine Occult Blood NEG (NEG) Urine Nitrite NEG (NEG) Urine Bilirubin NEG (NEG) Urine Urobilinogen NEG (NEG) Urine Leukocyte Esterase NEG (NEG) Medications Administered Medications (Trade) Dose Ordered Sig/Darrell Route Start Time Stop Time Status Last Admin Dose Admin Promethazine HCl (Phenergan Tab) 25 mg NOW ONCE PO 03/31/17 14:45 03/31/17 14:46 DC 03/31/17 15:13 25 MG Morphine Sulfate (MoRPHine SULFATE INJ) 4 mg Q1H PRN IV 03/31/17 14:45 03/31/17 17:52 DC 03/31/17 16:25 4 MG Dicyclomine HCl (Bentyl Cap) 20 mg NOW ONCE PO 03/31/17 16:00 03/31/17 16:02 DC 03/31/17 16:08 20 MG Lidocaine HCl (Viscous Lidocaine 2% Soln) 20 ml STK-MED ONCE .ROUTE 03/31/17 16:03 03/31/17 16:04 DC 03/31/17 16:08 20 ML Al Hydroxide/Mg Hydroxide (Maalox Susp) 30 ml STK-MED ONCE .ROUTE 03/31/17 16:04 03/31/17 16:05 DC 03/31/17 16:08 30 ML ED Course Patient was seen and examined Vital signs including blood pressure were reviewed medications list was verified with patient Labs were obtained, and a saline lock was established The patient was medicated with morphine and Phenergan. Upon reevaluation, the patient was still complaining of pain. She was given a GI cocktail. She was also given a dose of Bentyl. The patient was also evaluated by Dr. Zhou, who is in agreement with plan. The patient was again reassessed. We discussed the results of her workup. She was understanding. She was feeling better, and was comfortable being discharged home. I reviewed discharge instructions the patient. They voiced understanding and had no further questions. Medical Decision DIFFERENTIAL DIAGNOSIS: Gastroenteritis, Hepatitis, cholecystitis, cholangitis, biliary colic, pancreatitis, appendicitis, inguinal hernia, nephrolithiasis, inflammatory bowel disease, mesenteric adenitis, peptic ulcer disease, GERD, gastritis, pancreatitis,, bowel obstruction, splenic infarct, diverticulitis, mesenteric ischemia, metabolic, peritonitis Spine fracture, ligamentous injury, subluxation, spondylolisthesis, spondylosis, herniated disc, contusion, muscle spasm This patient is a 52-year-old female that presents to the emergency department with left upper quadrant pain and chronic back pain. On exam, she was mildly tender in the left upper quadrant. I do not suspect a surgical abdomen. The patient is neurologically intact. I do not find imaging necessary of her spine. Her back pain is chronic in nature. She did not have any trauma. Her labs reveal mild leukocytosis. Upon review of past labs, her white blood cells are actually lower today than on previous visits for the similar complaint. She has had an extensive workup including CT scans, endoscopy and colonoscopy. Lipase is within normal limits. LFTs are also within normal limits. The patient had good symptomatic relief with Bentyl and a GI cocktail. It is possible that this is secondary to her irritable bowel syndrome and possibly an element of GERD. I believe she is stable to be discharged home. She was instructed to follow-up with her primary care physician in the next 2 days for recheck. She was also instructed to contact her GI doctor for further evaluation. She agrees to return to the emergency department immediately with any new or worsening symptoms. This chart was completed in part utilizing [employer] Voice Recognition software. Attempts were made to minimize the grammatical errors, random word insertions, pronoun errors and incomplete sentences. Any formal questions or concerns about the content, text or information contained within the body of this dictation should be directly addressed to the provider for clarification. Impression Primary Impression: Abdominal pain Additional Impression: Acute exacerbation of chronic low back pain Departure Information Dispostion Home / Self-Care Condition GOOD Prescriptions Oxycodone Ir (Roxicodone Ir) 5 Mg Tab 1 TAB PO Q4H Y for Pain, #12 TAB For Initial Treatment Prov: Rebeca Arcos PA-C 03/31/17 Dicyclomine Hcl (BENTYL) 20 Mg Tab 20 MG PO Q8 for abdominal pain, #15 TAB Prov: Rebeca Arcos PA-C 03/31/17 Referrals Israel Nicole M.D. (PCP) Patient Instructions My [facility] Additional Instructions You were evaluated in the emergency department for abdominal pain and back pain. Please continue current pain medications as prescribed. Take Bentyl 1 tab every 8 hours as needed for abdominal cramping Oxycodone Immediate Release (OxyIR) 5mg: Take 1 pill every four hours for pain. Do not take this with any other narcotic pain medication. Avoid alcohol, operating machinery or dangerous equipment, working on ladders or roofs, DRIVING , or situations where being under the influence may be dangerous. It is recommended to use an [id number]-[id number]-kkezher stool softener such as Colace, 100mg twice daily while taking this medication to avoid constipation. Please follow-up with your primary care physician within the next 2-3 days for a recheck Return to the emergency department if you have any of the following symptoms: -Fever -Persistent vomiting - Persistent diarrhea -Lethargy -Chest pain -Shortness of breath -Worsening pain -Any other new or concerning symptoms Problem Qualifiers
[2017-03-31 15:13] LABS: BASO % 0.6 %; BASO ABS # 0.07 K/uL (0-0.2); COMPLETE YES; EOS % 1.5 %; HEMATOCRIT 43.5 % (37-47); IG% 0.3 %; LYMPH % 26.8 %; LYMPH ABS # 3.12 K/uL (1.2-3.4); MEAN CELL VOLUME 84.8 fL (80-100); MEAN CORPUSCULAR HGB CONC 34.3 g/dl (32-36); MEAN PLATELET VOLUME 8.9 fL (7.4-10.4); MONO % 7.6 %; NEUT % 63.2 %; PLATELET COUNT 274 K/uL (130-400); RED BLOOD COUNT 5.13 M/uL (4.2-5.4); WHITE BLOOD COUNT 11.65 K/uL (4.8-10.8)
[2017-03-31] MEDS: MoRPHine SULFATE 4 MG/ML 1 ML CARP\\VIAL IV PRN ×2 (15:14→16:25)
[2017-03-31] MEDS ORDERED: NVLGI/PEN SQ (15:15)
[2017-03-31 15:30] LABS: BUN/CREATININE RATIO 7.2 (10-20); CALCIUM 9.3 mg/dl (8.5-10.1); CREATININE 0.72 mg/dl (0.60-1.20); POTASSIUM 3.7 mmol/L (3.5-5.1)
[2017-03-31 15:33] LABS: ALB/GLOB RATIO 0.8 (0.9-2)
[2017-03-31] MEDS ORDERED: GI COCKTAIL PO ONE (16:00)
[2017-03-31] MEDS ORDERED: DICYCLOMINE HCL 10 MG CAP PO ONE (16:00)
--- NOTE | 2017-03-31 16:00 | EMERGENCY ROOM VISIT NOTE ---
ED Visit Note First contact with patient: 14:29 Patient was seen by our PA/LINE PREP COOK. I was involved in the patient's care and did evaluate the patient myself. I was involved in the care throughout the ER stay. The patient presents with left upper quadrant abdominal pain. She has had a long history of abdominal pain. She has had multiple imaging studies and has seen multiple specialists. On exam, she is mildly tender in the left upper quadrant. She has a mild white blood cell count elevation but looking back at prior records, her white count has been up in the past. She is not toxic, she is not febrile. We discussed repeat imaging. The patient would like to hold for now. Symptomatic care, a bland diet have been suggested. If worsening, she will return.
[2017-03-31] MEDS ORDERED: LIDOCAINE HCL 2% VISC SOLN 20 ML UDC ONE (16:03)
[2017-03-31] MEDS ORDERED: ALUMINUM/MAGNESIUM SUSP 30 ML UDC ONE (16:04)
[2017-03-31 16:41] LABS: URINE APPEARANCE CLEAR (CLEAR); URINE BILIRUBIN NEG (NEG); URINE COLOR YELLOW; URINE NITRITE NEG (NEG); URINE SPECIFIC GRAVITY 1.005 (1.000-1.030); UROBILINOGEN NEG (NEG)
[2017-03-31 16:42] LABS: MANUAL MICROSCOPIC REQUIRED? NO; REVIEW REQ? NO
[2017-03-31] MEDS ORDERED: OXYC1TAB3 PO (16:49)
[2017-03-31] MEDS ORDERED: DICY20TA35 PO (16:49)
[2017-03-31 17:11] VITALS: BP 151/83; PULSE 87; O2SAT 97
== END 2017-03-31 17:05 | disposition home or self-care (01) ==
LOC: C.EDB 13:49 → C.EDC 17:05
DX: R10.12 Left upper quadrant pain (principal); M54.5 Low back pain; G89.29 Other chronic pain; J45.909 Unspecified asthma, uncomplicated; E11.9 Type 2 diabetes mellitus without complications; M79.7 Fibromyalgia; F41.9 Anxiety disorder, unspecified; F17.200 Nicotine dependence, unspecified, uncomplicated; Z98.51 Tubal ligation status; Z90.89 Acquired absence of other organs; Z98.890 Other specified postprocedural states; Z83.3 Family history of diabetes mellitus; Z80.0 Family history of malignant neoplasm of digestive organs; Z82.49 Family history of ischemic heart disease and other diseases of the circulatory system; Z79.4 Long term (current) use of insulin; Z79.84 Long term (current) use of oral hypoglycemic drugs; Z79.899 Other long term (current) drug therapy

== ENCOUNTER 2017-04-04 11:52 | Emergency (ER) | payer OTHER ==
[~2017-04-04] VITALS: Ht 162.6 cm; Wt 107.0 kg
[~2017-04-04 11:52] MED LIST changes: +DICY20TA35 PO; -INSUINJ5 SC; +NVLGI/PEN SQ; +OXYC1TAB3 PO; -SULF800T23 PO
[2017-04-04 11:53] VITALS: Ht 162.6 cm; Wt 107.0 kg
[2017-04-04] MEDS ORDERED: MTR500 PO (12:28)
[2017-04-04] MEDS ORDERED: MoRPHine SULFATE 4 MG/ML 1 ML CARP\\VIAL IV STA (12:50)
[2017-04-04] MEDS ORDERED: GI COCKTAIL PO ONE (13:00)
[2017-04-04] MEDS ORDERED: LIDOCAINE HCL 2% VISC SOLN 20 ML UDC ONE (13:16)
[2017-04-04] MEDS ORDERED: ALUMINUM/MAGNESIUM SUSP 30 ML UDC ONE (13:16)
[2017-04-04 13:39] LABS: BASO % 0.7 %; BASO ABS # 0.06 K/uL (0-0.2); COMPLETE YES; EOS % 1.3 %; HEMATOCRIT 40.7 % (37-47); IG% 0.3 %; LYMPH % 25.5 %; LYMPH ABS # 2.28 K/uL (1.2-3.4); MEAN CELL VOLUME 85.1 fL (80-100); MEAN CORPUSCULAR HEMOGLOBIN 28.7 pg (25-34); MEAN CORPUSCULAR HGB CONC 33.7 g/dl (32-36); MEAN PLATELET VOLUME 9.2 fL (7.4-10.4); MONO % 7.6 %; NEUT % 64.6 %; PLATELET COUNT 254 K/uL (130-400); RED BLOOD COUNT 4.78 M/uL (4.2-5.4); WHITE BLOOD COUNT 8.94 K/uL (4.8-10.8)
[2017-04-04 13:57] LABS: BUN/CREATININE RATIO 8.7 (10-20); CREATININE 0.61 mg/dl (0.60-1.20); POTASSIUM 3.8 mmol/L (3.5-5.1)
--- NOTE | 2017-04-04 13:59 | DIAGNOSTIC IMAGING REPORT ---
PA CHEST WITH ABDOMINAL SERIES CLINICAL HISTORY: Generalized abdominal pain. Epigastric pain. FINDINGS: A PA chest radiograph is compared to study dated 10/29/2016 and correlated with chest CT dated 10/30/2016. The examination is degraded by patient rotation. The cardiomediastinal silhouette is unremarkable. There is minimal bibasilar atelectasis. The lungs and pleural spaces are otherwise clear. No pneumothorax is seen. The skeletal structures are osteopenic. The bony thorax is grossly intact. There is S-shaped thoracolumbar scoliosis. Supine and erect abdominal radiographs are correlated with abdominal CT dated 01/22/2016. Call cystectomy clips are identified in the right upper quadrant. There is a nonobstructed abdominal bowel gas pattern. No evidence of intraperitoneal free air is seen. There are no abnormal abdominal calcifications. Phleboliths are noted in the pelvis. The lumbosacral spine and bony pelvis appear intact. IMPRESSION: 1. No acute cardiopulmonary abnormality. 2. Nonobstructed abdominal bowel gas pattern. Electronically signed by: Sameer Steinberg M.D. 04/04/2017 1:58 PM Dictated Date/Time: 04/04/2017 1:56 PM
[2017-04-04 14:14] LABS: URINE APPEARANCE CLEAR (CLEAR); URINE BILIRUBIN NEG (NEG); URINE COLOR YELLOW; URINE NITRITE NEG (NEG); URINE SPECIFIC GRAVITY 1.009 (1.000-1.030); UROBILINOGEN NEG (NEG); ZZUR CULT IF INDIC CLEAN CATCH NO
[2017-04-04 14:20] LABS: MANUAL MICROSCOPIC REQUIRED? NO; REVIEW REQ? NO
[2017-04-04] MEDS ORDERED: PRED20TA PO (14:49)
[2017-04-04 14:58] VITALS: BP 122/64; PULSE 81; TEMP 36.8; O2SAT 94
--- NOTE | 2017-04-04 19:18 | EMERGENCY ROOM VISIT NOTE ---
History Report prepared by Brady: Bruce Mccarthy Under the Supervision of: Dr. Horace Frey D.O. First contact with patient: 12:39 Chief Complaint: SORETHROAT Stated Complaint: SORE THROAT History of Present Illness The patient is a 52 year old female who presents to the Emergency Room with complaints of worsening sore throat starting two days ago. The patient additionally states that she has a productive cough, runny nose, post nasal drip , she feels feverish, and she has a headache. She additionally states that she has diarrhea, though she had been treated for C Diff starting two days ago with Flagyl. The patient reports that she has been having on and off abdominal pain as well, though that has been improving significantly while on the flagyl, and she states that she has some abdominal swelling. She states that she thinks that the abdominal pain could be from when her grandson was walking on her stomach. The patient has a history of a cholecystectomy and multiple surgeries. She states that she has no out of the ordinary screaming recently. Pt denies change in vision, chest pain, shortness of breath, nausea, vomiting, pain with urination, and melena. Source of History: patient Onset: two days ago Position: throat Quality: other (sore) Timing: worsening Associated Symptoms: + fevers, + headache, + cough, + abdominal pain, + diarrhea Review of Systems See HPI for pertinent positives & negatives. A total of 10 systems reviewed and were otherwise negative. Past Medical & Surgical Medical Problems: (1) Anxiety (2) Appendectomy (3) Asthma (4) Bilateral inguinal hernia repair (5) Cholecystitis (6) Diabetes mellitus type 2 (7) fibromyalgia (8) History of - tubal ligation (9) Left total knee revision in 03/09 (10) presyncope (11) seasonal allergies Family History Cancer Colon cancer Diabetes mellitus Gallbladder disease Heart disease Hypertension Lung disease Social History Smoking Status: Current Every Day Smoker Alcohol Use: none Drug Use: marijuana Marital Status: Housing Status: lives with family Occupation Status: unemployed Current/Historical Medications Scheduled Atorvastatin (Lipitor), 40 MG PO HS Calcium Carbonate-Vitamin D (Calcium), 1 TAB PO DAILY Cetirizine (Zyrtec), 10 MG PO QAM Cholecalciferol (Vitamin D3), 2,000 INTER.UNIT PO DAILY Cinnamon (Cinnamon), 500 MG PO DAILY Dicyclomine Hcl (Bentyl), 20 MG PO Q8 Duloxetine HCl (Duloxetine HCl), 60 MG PO DAILY Fluticasone Prop/Salmeterol (Advair Diskus 500/50 60 Dose), 1 PUFF INH BID Glimepiride (Glimepiride), 4 MG PO QAM Insulin Aspart (Novolog Flexpen), SQ AC Insulin Glargine (Lantus Solostar), 50 UNITS SC QPM Krill Oil (Krill Oil), 1 CAP PO DAILY Magnesium Oxide (Mag-Ox), 400 MG PO DAILY Metformin HCl (Metformin HCl), 500 MG PO BID Metronidazole (Metronidazole), 500 MG PO TID Milk Thistle Seed (Bulk) (Milk Thistle), 1 DOSE PO DAILY Multivitamin (Multivitamin), 1 TAB PO DAILY Omeprazole (Prilosec), 40 MG PO DAILY Prednisone (Prednisone), 1 TAB PO DAILY Turmeric (Curcuma Longa) (Turmeric), 500 MG PO BID Scheduled PRN Albuterol Hfa (Ventolin Hfa), 2 PUFFS INH Q6H PRN for Shortness of Breath Albuterol Sulfate (Albuterol Sulfate), 1 VIAL INH Q4H PRN for SOB/Wheezing Baclofen (Baclofen), 10 MG PO BID PRN for Muscle Spasm Fluticasone Propionate (Fluticasone Propionate), 2 SPRAYS DANIKA DAILY PRN for Allergy Symptoms Hydrocodone/Acetaminophen 10MG/325MG ([place] 10MG/325MG), 1 TAB PO Q6H PRN for Pain Lorazepam (Lorazepam), 1 MG PO TID PRN for Anxiety Ondasetron Odt (Zofran Odt), 4 MG SL Q6H PRN for Nausea Oxycodone Ir (Roxicodone Ir), 1 TAB PO Q4H PRN for Pain Allergies Coded Allergies: Pregabalin (Unverified Allergy, Intermediate, HIVES, 04/04/17) Amoxicillin (Verified Allergy, Mild, RASH, 04/04/17) Benzonatate (Verified Allergy, Mild, RASH, 04/04/17) Clindamycin (Verified Adverse Reaction, Severe, GI UPSET, 04/04/17) Doxycycline (Verified Adverse Reaction, Severe, VOMIT, 04/04/17) Tetracycline (Verified Adverse Reaction, Severe, VOMIT, 04/04/17) NSAIDs (Verified Adverse Reaction, Intermediate, nausea, 04/04/17) Hydromorphone (Verified Adverse Reaction, Unknown, severe headache, ) Physical Exam Vital Signs Date Time Temp Pulse Resp B/P (MAP) Pulse Ox O2 Delivery O2 Flow Rate FiO2 04/04/17 14:58 36.8 81 18 122/64 94 Room Air 04/04/17 13:54 36.8 82 18 133/49 95 Room Air 04/04/17 11:53 36.8 94 16 145/84 97 Room Air Physical Exam GENERAL: Sitting up in bed, dry cough, no distress, non-toxic. Talking in full sentences. EYE EXAM: normal conjunctiva. OROPHARYNX: no exudate, no erythema, lips, buccal mucosa, and tongue normal and mucous membranes are moist NECK: supple, no nuchal rigidity, no adenopathy, non-tender LUNGS: Clear to auscultation. Normal chest wall mechanics HEART: no murmurs, S1 normal and S2 normal ABDOMEN: abdomen soft, non-tender, normo-active bowel sounds, no masses, no rebound or guarding. BACK: Back is symmetrical on inspection and there is no deformity, no midline tenderness, no CVA tenderness. SKIN: no rashes and no bruising UPPER EXTREMITIES: upper extremities are grossly normal. LOWER EXTREMITIES: No pitting edema. NEURO EXAM: Normal sensorium, cranial nerves II-XII grossly intact, normal speech, no gross weakness of arms, no gross weakness of legs. Gross sensation intact. Medical Decision & Procedures ER Provider Diagnostic Interpretation: Radiology results as stated below per my review and the radiologist's interpretation: PA CHEST WITH ABDOMINAL SERIES CLINICAL HISTORY: Generalized abdominal pain. Epigastric pain. FINDINGS: A PA chest radiograph is compared to study dated 10/29/2016 and correlated with chest CT dated 10/30/2016. The examination is degraded by patient rotation. The cardiomediastinal silhouette is unremarkable. There is minimal bibasilar atelectasis. The lungs and pleural spaces are otherwise clear. No pneumothorax is seen. The skeletal structures are osteopenic. The bony thorax is grossly intact. There is S-shaped thoracolumbar scoliosis. Supine and erect abdominal radiographs are correlated with abdominal CT dated 01/22/2016. Call cystectomy clips are identified in the right upper quadrant. There is a nonobstructed abdominal bowel gas pattern. No evidence of intraperitoneal free air is seen. There are no abnormal abdominal calcifications. Phleboliths are noted in the pelvis. The lumbosacral spine and bony pelvis appear intact. IMPRESSION: 1. No acute cardiopulmonary abnormality. 2. Nonobstructed abdominal bowel gas pattern. Electronically signed by: Sameer Steinberg M.D. 04/04/2017 1:58 PM Dictated Date/Time: 04/04/2017 1:56 PM Laboratory Results 04/04/17 13:05 Red Blood Count 4.78, Mean Corpuscular Volume 85.1, Mean Corpuscular Hemoglobin 28.7, Mean Corpuscular Hemoglobin Concent 33.7, Mean Platelet Volume 9.2, Neutrophils (%) (Auto) 64.6, Lymphocytes (%) (Auto) 25.5, Monocytes (%) (Auto) 7.6, Eosinophils (%) (Auto) 1.3, Basophils (%) (Auto) 0.7, Neutrophils # (Auto) 5.77, Lymphocytes # (Auto) 2.28, Monocytes # (Auto) 0.68, Eosinophils # (Auto) 0.12, Basophils # (Auto) 0.06 04/04/17 13:05 Test 04/04/17 13:05 04/04/17 14:00 White Blood Count 8.94 K/uL (4.8-10.8) Red Blood Count 4.78 M/uL (4.2-5.4) Hemoglobin 13.7 g/dL (12.0-16.0) Hematocrit 40.7 % (37-47) Mean Corpuscular Volume 85.1 fL (80-100) Mean Corpuscular Hemoglobin 28.7 pg (25-34) Mean Corpuscular Hemoglobin Concent 33.7 g/dl (32-36) Platelet Count 254 K/uL (130-400) Mean Platelet Volume 9.2 fL (7.4-10.4) Neutrophils (%) (Auto) 64.6 % Lymphocytes (%) (Auto) 25.5 % Monocytes (%) (Auto) 7.6 % Eosinophils (%) (Auto) 1.3 % Basophils (%) (Auto) 0.7 % Neutrophils # (Auto) 5.77 K/uL (1.4-6.5) Lymphocytes # (Auto) 2.28 K/uL (1.2-3.4) Monocytes # (Auto) 0.68 K/uL (0.11-0.59) Eosinophils # (Auto) 0.12 K/uL (0-0.5) Basophils # (Auto) 0.06 K/uL (0-0.2) RDW Standard Deviation 46.5 fL (36.4-46.3) RDW Coefficient of Variation 15.0 % (11.5-14.5) Immature Granulocyte % (Auto) 0.3 % Immature Granulocyte # (Auto) 0.03 K/uL (0.00-0.02) Anion Gap 8.0 mmol/L (3-11) Est Creatinine Clear Calc Drug Dose 125.9 ml/min Estimated GFR () 119.1 Estimated GFR (Non- 102.8 BUN/Creatinine Ratio 8.7 (10-20) Calcium Level 9.0 mg/dl (8.5-10.1) Total Bilirubin 0.4 mg/dl (0.2-1) Direct Bilirubin 0.1 mg/dl (0-0.2) Aspartate Amino Transf (AST/SGOT) 12 U/L (15-37) Alanine Aminotransferase (ALT/SGPT) 22 U/L (12-78) Alkaline Phosphatase 89 U/L (45-117) Total Protein 7.4 gm/dl (6.4-8.2) Albumin 3.7 gm/dl (3.4-5.0) Lipase 125 U/L (73-393) Urine Color YELLOW Urine Appearance CLEAR (CLEAR) Urine pH 6.0 (4.5-7.5) Urine Specific Huggins 1.009 (1.000-1.030) Urine Protein NEG (NEG) Urine Glucose (UA) NEG (NEG) Urine Ketones NEG (NEG) Urine Occult Blood NEG (NEG) Urine Nitrite NEG (NEG) Urine Bilirubin NEG (NEG) Urine Urobilinogen NEG (NEG) Urine Leukocyte Esterase NEG (NEG) Urine WBC (Auto) 0 /hpf (0-5) Urine RBC (Auto) 0-4 /hpf (0-4) Urine Hyaline Casts (Auto) 0 /lpf (0-5) Urine Epithelial Cells (Auto) 10-20 /lpf (0-5) Urine Bacteria (Auto) NEG (NEG) Urine Test NEG (NEG) Laboratory results per my review. Medications Administered Medications (Trade) Dose Ordered Sig/Darrell Route Start Time Stop Time Status Last Admin Dose Admin Morphine Sulfate (MoRPHine SULFATE INJ) 4 mg NOW STAT IV 04/04/17 12:50 04/04/17 12:54 DC 04/04/17 13:22 4 MG Methylprednisolone Sodium Succinate (Solu-Medrol IV) 20 mg NOW STAT IV 04/04/17 12:50 04/04/17 12:54 DC 04/04/17 13:22 20 MG Lidocaine HCl (Viscous Lidocaine 2% Soln) 20 ml STK-MED ONCE .ROUTE 04/04/17 13:16 04/04/17 13:17 DC 04/04/17 13:25 20 ML Al Hydroxide/Mg Hydroxide (Maalox Susp) 30 ml STK-MED ONCE .ROUTE 04/04/17 13:16 04/04/17 13:17 DC 04/04/17 13:25 30 ML ED Course ED COURSE: Vital signs were reviewed and showed situational hypertension The patients medical record was reviewed The above diagnostic studies were performed and reviewed. ED treatments and interventions as stated above. 1239: The patient was evaluated in room C1. A complete history and physical examination was performed. 1250: Morphine Sulfate 4mg IV, Gracie-Medrol 20mg IV 1316: Maalox Susp 30ml PO, Viscous Lidocaine 2% Soln PO 1446: Upon reevaluation, the patient is doing better.I discussed my findings with the patient and she understands and agrees with the treatment plan. Based on the patients age, coexisting illnesses, exam and lab findings the decision to treat as an outpatient was made. The patient remained stable while under my care. The patient appeared well at the time of discharge. Medical Decision Differential diagnoses includes but is not limited to gastritis, peptic ulcer disease, GERD, gallbladder disease, pancreatitis, small bowel obstruction, acute coronary syndrome, pericarditis, ischemic bowel, irritable bowel disease, irritable bowel syndrome, appendicitis, diverticulitis, malignancy, hernia, urinary tract infection, torsion, /ectopic , perforation, trauma, infectious. Patient is a 52-year-old female who presents to ER for upper esterase symptoms associated with pain when swallowing. She has clear uvulitis. Patient has no signs meningitis or encephalitis on exam. CBC all BMP, LFTs, bilirubin lipase is unremarkable. UA was negative. was negative. A discharge and serous was normal. Patient was updated regards to her findings. She was given steroids and a small dose of morphine. She had improvement of symptoms. I do believe that these are consistent with viral URI. Chest x-ray shows no acute pathology. The pain was reproducible in the epigastric region and she has a previous cholecystectomy. With her unremarkable workup she was discharged follow-up with PCP. Discussed with Pt concerning signs and symptoms to watch out for. Pt was instructed to follow up with their PCP and discussed with the patient their option to return to the ED at anytime for persistent or worsening symptoms. The appropriate anticipatory guidance and out-patient management, including indications for return to the emergency department, were explained at length to the patient and understood. Medication Reconcilliation Current Medication List: was personally reviewed by me Blood Pressure Screening Patient's blood pressure: Elevated blood pressure Blood pressure disposition: Elevated BP felt to be situational Impression Primary Impression: Uvulitis Additional Impressions: Sore throat Abdominal pain Scribe Attestation The scribe's documentation has been prepared under my direction and personally reviewed by me in its entirety. I confirm that the note above accurately reflects all work, treatment, procedures, and medical decision making performed by me. Departure Information Dispostion Home / Self-Care Prescriptions Prednisone (Prednisone) 20 Mg Tab 1 TAB PO DAILY for 5 Days, #4 TAB Prov: Horace Frey, 04/04/17 Referrals Israel Nicole M.D. (PCP) Forms HOME CARE DOCUMENTATION FORM, IMPORTANT VISIT INFORMATION Patient Instructions ED Nadira Alford [facility] Additional Instructions Please follow up with your primary care doctor or if you are a student, [facility] with in the next 24 hours. Any worsening of your symptoms, please return to the ED immediately. This includes any fevers greater than 100.4, worsening pain, chest pain, shortness breath, persistent nausea, vomiting, unable to eat or drink, or any other concerning signs or symptoms from your standpoint. Please take Motrin or Tylenol as needed for pain. Please take the steroids as prescribed and cover your blood sugars appropriately. Problem Qualifiers Additional Impressions: Abdominal pain Abdominal location: unspecified location Qualified Codes: R10.9 - Unspecified abdominal pain
== END 2017-04-04 15:06 | disposition home or self-care (01) ==
LOC: C.EDB 11:53 → C.EDC 15:06
DX: K12.2 Cellulitis and abscess of mouth (principal); R10.9 Unspecified abdominal pain; J45.909 Unspecified asthma, uncomplicated; E11.9 Type 2 diabetes mellitus without complications; F17.200 Nicotine dependence, unspecified, uncomplicated; F12.90 Cannabis use, unspecified, uncomplicated; Z79.4 Long term (current) use of insulin; Z83.3 Family history of diabetes mellitus; Z82.49 Family history of ischemic heart disease and other diseases of the circulatory system; Z83.6 Family history of other diseases of the respiratory system; Z83.79 Family history of other diseases of the digestive system; Z80.0 Family history of malignant neoplasm of digestive organs

== ENCOUNTER 2017-04-11 12:22 | Emergency (ER) | payer OTHER ==
[~2017-04-11] VITALS: Ht 162.6 cm; Wt 106.3 kg
[~2017-04-11 12:22] MED LIST changes: +MTR500 PO
[2017-04-11 12:29] VITALS: TEMP 36.8; Ht 162.6 cm; Wt 106.3 kg
[2017-04-11 12:58] VITALS: O2SAT 96
[2017-04-11] MEDS ORDERED: ONDANSETRON INJ 2 MG/ML 2 ML VIAL IV STA (13:25)
[2017-04-11] MEDS ORDERED: SODIUM CHLORIDE 0.9% 1000ML 1,000 ML IV STA (13:25)
[2017-04-11] MEDS ORDERED: FAMOTIDINE 20MG/5ML IV PUSH IV STA (13:25)
[2017-04-11] MEDS ORDERED: FENTANYL CITRATE INJ 50 MCG/1 ML 2 ML VIAL IV STA (13:25)
--- NOTE | 2017-04-11 13:32 | EMERGENCY ROOM VISIT NOTE ---
History Report prepared by Brady: Amol Tijerina Under the Supervision of: Dr. Keegan Aleman M.D. First contact with patient: 13:22 Chief Complaint: ABDOMINAL PAIN Stated Complaint: EPIGASTIC PAIN,REFERRED TO BY [facility] Nursing Triage Summary: Pt c/o constant nawing epigastric pain with intermittent cramps. Pt also c/o sinus h/a. Pt states that she went to clinic today and was referred to the ED. Pt states that she is currently taking Flagyl for CDiff, states that pain that she was seen here for at last ED visit had resolved until last night. History of Present Illness The patient is a 52 year old female who presents to the Emergency Room with complaints of constant abdominal pain for two days [employer]. She notes epigastric pain, cramps, sinus headache, bloating, congestion, productive cough with yellow sputum, and diarrhea. She currently rates her pain a 7/10 in severity. She went to urgent care and was advised to come to the ED. She was recently seen in the ED for similar symptoms two weeks ago. She notes a recent history of C. diff. and is taking Flagyl. She has a history of migraines, diabetes, acid reflux, cholecystectomy, tubal ligation, and herniorrhaphy. She does not feel as though her symptoms are acid reflux related. She denies any fevers, chills, nausea, bloody stools, and vomiting. She notes her last bowel movement was this morning, though was loose and formed. She denies a history of pancreatitis. Source of History: patient Onset: two days [employer] Symptom Intensity: 7/10 Quality: cramping Timing: constant Associated Symptoms: + headache (sinus), + cough (productive cough with yellow sputum), + abdominal pain (epigastric pain), + diarrhea, No fevers, No chills, No nausea, No vomiting Note: She notes cramps, bloating, and congestion. She denies bloody stools. Review of Systems See HPI for pertinent positives and negatives. A total of ten systems were reviewed and were otherwise negative. Past Medical & Surgical Medical Problems: (1) Anxiety (2) Appendectomy (3) Asthma (4) Bilateral inguinal hernia repair (5) Cholecystitis (6) Diabetes mellitus type 2 (7) fibromyalgia (8) History of - tubal ligation (9) Left total knee revision in 03/09 (10) presyncope (11) seasonal allergies Family History Cancer Colon cancer Diabetes mellitus Gallbladder disease Heart disease Hypertension Lung disease Social History Smoking Status: Current Every Day Smoker Alcohol Use: none Drug Use: marijuana Marital Status: Housing Status: lives with family Occupation Status: unemployed Current/Historical Medications Scheduled Atorvastatin (Lipitor), 40 MG PO HS Calcium Carbonate-Vitamin D (Calcium), 1 TAB PO DAILY Cetirizine (Zyrtec), 10 MG PO QAM Cholecalciferol (Vitamin D3), 2,000 INTER.UNIT PO DAILY Cinnamon (Cinnamon), 500 MG PO DAILY Duloxetine HCl (Duloxetine HCl), 60 MG PO DAILY Fluticasone Prop/Salmeterol (Advair Diskus 500/50 60 Dose), 1 PUFF INH BID Glimepiride (Glimepiride), 4 MG PO QAM Insulin Aspart (Novolog Flexpen), SQ AC Insulin Glargine (Lantus Solostar), 50 UNITS SC QPM Krill Oil (Krill Oil), 1 CAP PO DAILY Magnesium Oxide (Mag-Ox), 400 MG PO DAILY Metformin HCl (Metformin HCl), 500 MG PO BID Metronidazole (Metronidazole), 500 MG PO TID Milk Thistle Seed (Bulk) (Milk Thistle), 1 DOSE PO DAILY Multivitamin (Multivitamin), 1 TAB PO DAILY Omeprazole (Prilosec), 40 MG PO DAILY Turmeric (Curcuma Longa) (Turmeric), 500 MG PO BID Scheduled PRN Albuterol Hfa (Ventolin Hfa), 2 PUFFS INH Q6H PRN for Shortness of Breath Albuterol Sulfate (Albuterol Sulfate), 1 VIAL INH Q4H PRN for SOB/Wheezing Baclofen (Baclofen), 10 MG PO BID PRN for Muscle Spasm Fluticasone Propionate (Fluticasone Propionate), 2 SPRAYS DANIKA DAILY PRN for Allergy Symptoms Hydrocodone/Acetaminophen 10MG/325MG ([place] 10MG/325MG), 1 TAB PO Q6H PRN for Pain Lorazepam (Lorazepam), 1 MG PO TID PRN for Anxiety Ondasetron Odt (Zofran Odt), 4 MG SL Q6H PRN for Nausea Allergies Coded Allergies: Pregabalin (Unverified Allergy, Intermediate, HIVES, 04/11/17) Amoxicillin (Verified Allergy, Mild, RASH, 04/11/17) Benzonatate (Verified Allergy, Mild, RASH, 04/11/17) Clindamycin (Verified Adverse Reaction, Severe, GI UPSET, 04/11/17) Doxycycline (Verified Adverse Reaction, Severe, VOMIT, 04/11/17) Tetracycline (Verified Adverse Reaction, Severe, VOMIT, 04/11/17) NSAIDs (Verified Adverse Reaction, Intermediate, nausea, 04/11/17) Hydromorphone (Verified Adverse Reaction, Unknown, severe headache, ) Physical Exam Vital Signs Date Time Temp Pulse Resp B/P (MAP) Pulse Ox O2 Delivery O2 Flow Rate FiO2 04/11/17 16:52 80 20 124/77 95 04/11/17 16:01 74 20 132/73 98 Nasal Cannula 04/11/17 15:26 78 20 131/72 93 Room Air 04/11/17 14:30 77 20 123/73 93 Room Air 04/11/17 14:08 85 20 118/81 95 Room Air 04/11/17 12:58 96 Room Air 04/11/17 12:57 97 04/11/17 12:29 36.8 101 18 132/85 97 Room Air Physical Exam GENERAL: Awake, alert, uncomfortable-appearing, in no distress HENT: Normocephalic, atraumatic. Oropharynx unremarkable. EYES: Normal conjunctiva. Sclera non-icteric. NECK: Supple. No nuchal rigidity. FROM. No JVD. RESPIRATORY: Clear to auscultation. CARDIAC: Regular rate, normal rhythm. Extremities warm and well perfused. Pulses equal. ABDOMEN: Soft, non-distended. No tenderness to palpation. No rebound or guarding. No masses.Mild epigastric tenderness. No peritoneal signs. Obese abdomen. RECTAL: Deferred. MUSCULOSKELETAL: Chest examination reveals no tenderness. The back is symmetrical on inspection without obvious abnormality. There is no CVA tenderness to palpation. No joint edema. LOWER EXTREMITIES: Calves are equal size bilaterally and non-tender. No edema. No discoloration. NEURO: Normal sensorium. No sensory or motor deficits noted. SKIN: No rash or jaundice noted. Medical Decision & Procedures ER Provider Diagnostic Interpretation: Radiology results as stated below per my review and radiologist interpretation: CHEST ONE VIEW PORTABLE HISTORY: 52 years-old Female ABDOMINAL PAIN/GI acute generalized abdominal pain COMPARISON: Acute abdominal series radiographs 04/04/2017 TECHNIQUE: Portable AP view of the chest FINDINGS: Cardiomediastinal and hilar silhouettes are within normal limits. Linear subsegmental left basilar opacity suggests atelectasis or scarring. No pneumothorax, pleural effusion, focal airspace consolidation or overt pulmonary edema. Bones of the chest appear grossly intact. IMPRESSION: No acute cardiopulmonary process. The above report was generated using voice recognition software. It may contain grammatical, syntax or spelling errors. Electronically signed by: Christopher Alcala M.D. 04/11/2017 1:47 PM Dictated Date/Time: 04/11/2017 1:46 PM ABDOMEN AND PELVIS CT WITH IV CONTRAST CT DOSE: 1355.93 mGy.cm HISTORY: Acute generalized abdominal pain with nausea and vomiting. Prior appendectomy abd pain, n/v TECHNIQUE: Multiaxial CT images of the abdomen and pelvis were performed following the use of intravenous contrast. A dose lowering technique was utilized adhering to the principles of ALARA. COMPARISON STUDY: CT abdomen and pelvis 01/22/2016, abdominal radiographs 04/04/2017. FINDINGS: Linear subsegmental opacity of the inferior segment lingula suggest atelectasis or scarring. There is no pneumatosis or pneumoperitoneum identified. The imaged inferior cardiac chambers are unremarkable. Prior cholecystectomy. There is no intrahepatic biliary ductal dilation. The liver, spleen, pancreas and adrenal glands are within normal limits. 5 mm low attenuating lesion of the screw pole right kidney is too small to characterize, however suggests cyst. Kidneys are otherwise unremarkable. Ureters and urinary bladder are within normal limits. Uterus is unremarkable. Bilateral fallopian tube occlusion devices noted. Mild atherosclerosis of the aorta. No bulky adenopathy. There is no bowel obstruction or focal bowel wall thickening. There is moderate stool volume of the sigmoid. Mild colonic diverticulosis without diverticulitis. There is a 6 mm metallic density focus noted within the descending colon, image 212 series 3 with additional 5 mm metallic density structure seen within small bowel of the mid abdomen, image 215 series 3. These foci are new from radiographs dated 04/04/2017. Prior appendectomy. Small periumbilical hernia is noted, diastases 2.4 cm containing a nonobstructive loop of small bowel. Soft tissues are unremarkable. The bones appear to be intact. IMPRESSION: 1. No acute intra-abdominal or intrapelvic abnormality identified. 2. Prior appendectomy and bilateral fallopian tube occlusion. 3. There are two 5 mm metallic density foci within the bowel, one of which is within the descending colon and one is within a loop of small bowel of the central abdomen as above, both of which are new from comparison radiographs 04/04/2017. Correlate clinically to exclude ingested foreign bodies. 4. Small periumbilical hernia contains a nonobstructed loop of small bowel. Electronically signed by: Christopher Alcala M.D. 04/11/2017 3:16 PM Dictated Date/Time: 04/11/2017 3:07 PM Laboratory Results 04/11/17 13:55 Red Blood Count 5.30, Mean Corpuscular Volume 84.2, Mean Corpuscular Hemoglobin 29.1, Mean Corpuscular Hemoglobin Concent 34.5, Mean Platelet Volume 9.3, Neutrophils (%) (Auto) 64.6, Lymphocytes (%) (Auto) 27.3, Monocytes (%) (Auto) 6.0, Eosinophils (%) (Auto) 1.2, Basophils (%) (Auto) 0.5, Neutrophils # (Auto) 9.14, Lymphocytes # (Auto) 3.87, Monocytes # (Auto) 0.85, Eosinophils # (Auto) 0.17, Basophils # (Auto) 0.07 04/11/17 13:55 Test 04/11/17 13:45 04/11/17 13:55 04/11/17 15:00 Influenza Type A Antigen Neg for Influ A (NEG) Influenza Type B Antigen Neg for Influ B (NEG) White Blood Count 14.16 K/uL (4.8-10.8) Red Blood Count 5.30 M/uL (4.2-5.4) Hemoglobin 15.4 g/dL (12.0-16.0) Hematocrit 44.6 % (37-47) Mean Corpuscular Volume 84.2 fL (80-100) Mean Corpuscular Hemoglobin 29.1 pg (25-34) Mean Corpuscular Hemoglobin Concent 34.5 g/dl (32-36) Platelet Count 305 K/uL (130-400) Mean Platelet Volume 9.3 fL (7.4-10.4) Neutrophils (%) (Auto) 64.6 % Lymphocytes (%) (Auto) 27.3 % Monocytes (%) (Auto) 6.0 % Eosinophils (%) (Auto) 1.2 % Basophils (%) (Auto) 0.5 % Neutrophils # (Auto) 9.14 K/uL (1.4-6.5) Lymphocytes # (Auto) 3.87 K/uL (1.2-3.4) Monocytes # (Auto) 0.85 K/uL (0.11-0.59) Eosinophils # (Auto) 0.17 K/uL (0-0.5) Basophils # (Auto) 0.07 K/uL (0-0.2) RDW Standard Deviation 46.5 fL (36.4-46.3) RDW Coefficient of Variation 15.1 % (11.5-14.5) Immature Granulocyte % (Auto) 0.4 % Immature Granulocyte # (Auto) 0.06 K/uL (0.00-0.02) Anion Gap 6.0 mmol/L (3-11) Est Creatinine Clear Calc Drug Dose 115.9 ml/min Estimated GFR () 116.1 Estimated GFR (Non- 100.1 BUN/Creatinine Ratio 12.8 (10-20) Lactic Acid Level 1.2 mmol/L (0.4-2.0) Calcium Level 8.7 mg/dl (8.5-10.1) Total Bilirubin 0.5 mg/dl (0.2-1) Direct Bilirubin 0.1 mg/dl (0-0.2) Aspartate Amino Transf (AST/SGOT) 12 U/L (15-37) Alanine Aminotransferase (ALT/SGPT) 25 U/L (12-78) Alkaline Phosphatase 91 U/L (45-117) Troponin I < 0.015 ng/ml (0-0.045) Total Protein 7.9 gm/dl (6.4-8.2) Albumin 3.5 gm/dl (3.4-5.0) Lipase 178 U/L (73-393) Urine Color YELLOW Urine Appearance CLEAR (CLEAR) Urine pH 6.5 (4.5-7.5) Urine Specific [place] 1.016 (1.000-1.030) Urine Protein NEG (NEG) Urine Glucose (UA) NEG (NEG) Urine Ketones NEG (NEG) Urine Occult Blood NEG (NEG) Urine Nitrite NEG (NEG) Urine Bilirubin NEG (NEG) Urine Urobilinogen NEG (NEG) Urine Leukocyte Esterase NEG (NEG) Laboratory results reviewed by me Medications Administered Medications (Trade) Dose Ordered Sig/Darrell Route Start Time Stop Time Status Last Admin Dose Admin Famotidine (Pepcid 20mg Iv Push) 20 mg NOW STAT IV 04/11/17 13:25 04/11/17 13:33 DC 04/11/17 13:57 20 MG Ondansetron HCl (Zofran Inj) 4 mg NOW STAT IV 04/11/17 13:25 04/11/17 13:33 DC 04/11/17 13:57 4 MG Fentanyl Citrate (Fentanyl Inj) 50 mcg NOW STAT IV 04/11/17 13:25 04/11/17 13:33 DC 04/11/17 13:58 50 MCG Sodium Chloride 1,000 ml @ 999 mls/hr Q1H1M STAT IV 04/11/17 13:25 04/11/17 14:25 DC 04/11/17 13:57 999 MLS/HR Dicyclomine HCl (Bentyl Cap) 20 mg NOW ONCE PO 04/11/17 16:30 04/11/17 16:31 DC 04/11/17 16:47 20 MG ED Course 1322: The patient was evaluated in room C1B. A complete history and physical exam was performed. 1617: I reassessed the patient at this time. She is feeling better and resting comfortably. I discussed the results and treatment plan with the patient. I answered all pertaining questions that she had. She expressed understanding and verbalized agreement. The patient will be discharged home. Medical Decision I reviewed the patient's past medical history, medications, and the nursing notes as described above. The patient's presentation and history were concerning for gastritis, peptic ulcer, ACS, PNA, bronchitis, gastroenteritis, colitis, diverticulitis, and pancreatitis. The patient is a 52-year-old woman who presents emergency Department with epigastric pain with nausea after being seen in urgent care and referred to the emergency department per history of present illness. On arrival patients uncomfortable but no acute distress. Sh is mild epigastric discomfort but no peritoneal signs. She is afebrile with stable vital signs. WBC 14 nonspecific. Labs unremarkable including lactate within normal limits. CT abdomen and pelvis demonstrating hernia with diastases which may be the cause the patient's pain however no signs of obstruction. Additionally there are what appear to be metallic foreign bodies within the GI tract that are likely due to loosened dental fillings. Patient feeling improved after IV fluids and Pepcid. Plan for PCP follow-up and possible surgery follow-up if symptoms persist. Findings and plan for follow-up reviewed with patient. Patient agreeable and d/c'd per discharge instructions. Impression Primary Impression: Abdominal pain Scribe Attestation The scribe's documentation has been prepared under my direction and personally reviewed by me in its entirety. I confirm that the note above accurately reflects all work, treatment, procedures, and medical decision making performed by me. Departure Information Dispostion Home / Self-Care Referrals Israel Nicole M.D. (PCP) Forms Call Back Authorization, HOME CARE DOCUMENTATION FORM, IMPORTANT VISIT INFORMATION Patient Instructions Abdominal Pain, [facility] Additional Instructions Please follow up with your primary care physician in the next 1-3 days for re- evaluation. The exact cause of your symptoms is unclear at this time but may be due to your hernia. Otherwise, your exam, CT scan, and lab results did not show signs of an emergent condition at this time. Resume your bentyl and continue your metronidazole as prescribed. If symptoms persist you may consider following up with your surgeon for an elective hernia repair. Return to the emergency department for worsening symptoms as described in the accompanying instructions.
[2017-04-11] MEDS ORDERED: OPTIRAY 320 IV PRN (13:45)
--- NOTE | 2017-04-11 13:48 | DIAGNOSTIC IMAGING REPORT ---
CHEST ONE VIEW PORTABLE HISTORY: 52 years-old Female ABDOMINAL PAIN/GI acute generalized abdominal pain COMPARISON: Acute abdominal series radiographs 04/04/2017 TECHNIQUE: Portable AP view of the chest FINDINGS: Cardiomediastinal and hilar silhouettes are within normal limits. Linear subsegmental left basilar opacity suggests atelectasis or scarring. No pneumothorax, pleural effusion, focal airspace consolidation or overt pulmonary edema. Bones of the chest appear grossly intact. IMPRESSION: No acute cardiopulmonary process. The above report was generated using voice recognition software. It may contain grammatical, syntax or spelling errors. Electronically signed by: Christopher Alcala M.D. 04/11/2017 1:47 PM Dictated Date/Time: 04/11/2017 1:46 PM
[2017-04-11 14:13] LABS: BASO % 0.5 %; BASO ABS # 0.07 K/uL (0-0.2); COMPLETE YES; EOS % 1.2 %; HEMATOCRIT 44.6 % (37-47); IG% 0.4 %; LYMPH % 27.3 %; LYMPH ABS # 3.87 K/uL (1.2-3.4); MEAN CELL VOLUME 84.2 fL (80-100); MEAN CORPUSCULAR HEMOGLOBIN 29.1 pg (25-34); MEAN CORPUSCULAR HGB CONC 34.5 g/dl (32-36); MEAN PLATELET VOLUME 9.3 fL (7.4-10.4); NEUT % 64.6 %; PLATELET COUNT 305 K/uL (130-400); WHITE BLOOD COUNT 14.16 K/uL (4.8-10.8)
[2017-04-11 14:32] LABS: ALT/SGPT 25 U/L (12-78); AST/SGOT 12 U/L (15-37); BLOOD UREA NITROGEN 9 mg/dl (7-18); BUN/CREATININE RATIO 12.8 (10-20); CALCIUM 8.7 mg/dl (8.5-10.1); CARBON DIOXIDE 28 mmol/L (21-32); CHLORIDE 102 mmol/L (98-107); CREATININE 0.66 mg/dl (0.60-1.20); GLUCOSE 162 mg/dl (70-99); POTASSIUM 3.7 mmol/L (3.5-5.1); SODIUM 136 mmol/L (136-145)
[2017-04-11 14:37] LABS: ALKALINE PHOSPHATASE 91 U/L (45-117)
--- NOTE | 2017-04-11 15:18 | DIAGNOSTIC IMAGING REPORT ---
ABDOMEN AND PELVIS CT WITH IV CONTRAST CT DOSE: 1355.93 mGy.cm HISTORY: Acute generalized abdominal pain with nausea and vomiting. Prior appendectomy abd pain, n/v TECHNIQUE: Multiaxial CT images of the abdomen and pelvis were performed following the use of intravenous contrast. A dose lowering technique was utilized adhering to the principles of ALARA. COMPARISON STUDY: CT abdomen and pelvis 01/22/2016, abdominal radiographs 04/04/2017. FINDINGS: Linear subsegmental opacity of the inferior segment lingula suggest atelectasis or scarring. There is no pneumatosis or pneumoperitoneum identified. The imaged inferior cardiac chambers are unremarkable. Prior cholecystectomy. There is no intrahepatic biliary ductal dilation. The liver, spleen, pancreas and adrenal glands are within normal limits. 5 mm low attenuating lesion of the screw pole right kidney is too small to characterize, however suggests cyst. Kidneys are otherwise unremarkable. Ureters and urinary bladder are within normal limits. Uterus is unremarkable. Bilateral fallopian tube occlusion devices noted. Mild atherosclerosis of the aorta. No bulky adenopathy. There is no bowel obstruction or focal bowel wall thickening. There is moderate stool volume of the sigmoid. Mild colonic diverticulosis without diverticulitis. There is a 6 mm metallic density focus noted within the descending colon, image 212 series 3 with additional 5 mm metallic density structure seen within small bowel of the mid abdomen, image 215 series 3. These foci are new from radiographs dated 04/04/2017. Prior appendectomy. Small periumbilical hernia is noted, diastases 2.4 cm containing a nonobstructive loop of small bowel. Soft tissues are unremarkable. The bones appear to be intact. IMPRESSION: 1. No acute intra-abdominal or intrapelvic abnormality identified. 2. Prior appendectomy and bilateral fallopian tube occlusion. 3. There are two 5 mm metallic density foci within the bowel, one of which is within the descending colon and one is within a loop of small bowel of the central abdomen as above, both of which are new from comparison radiographs 04/04/2017. Correlate clinically to exclude ingested foreign bodies. 4. Small periumbilical hernia contains a nonobstructed loop of small bowel. Electronically signed by: Christopher Alcala M.D. 04/11/2017 3:16 PM Dictated Date/Time: 04/11/2017 3:07 PM
[2017-04-11 16:02] LABS: MANUAL MICROSCOPIC REQUIRED? NO; REVIEW REQ? NO; URINE APPEARANCE CLEAR (CLEAR); URINE BILIRUBIN NEG (NEG); URINE COLOR YELLOW; URINE NITRITE NEG (NEG); URINE PH 6.5 (4.5-7.5); URINE SPECIFIC GRAVITY 1.016 (1.000-1.030); UROBILINOGEN NEG (NEG); ZZUR CULT IF INDIC CLEAN CATCH NO
[2017-04-11] MEDS ORDERED: DICYCLOMINE HCL 10 MG CAP PO ONE (16:30)
[2017-04-11 16:52] VITALS: BP 124/77; PULSE 80; O2SAT 95
== END 2017-04-11 16:54 | disposition home or self-care (01) ==
LOC: C.EDB 12:23 → C.EDC 16:54
DX: R10.9 Unspecified abdominal pain (principal); E11.9 Type 2 diabetes mellitus without complications; K21.9 Gastro-esophageal reflux disease without esophagitis; J45.909 Unspecified asthma, uncomplicated; F17.200 Nicotine dependence, unspecified, uncomplicated; Z98.51 Tubal ligation status; Z90.49 Acquired absence of other specified parts of digestive tract; Z90.89 Acquired absence of other organs; Z98.890 Other specified postprocedural states; Z80.0 Family history of malignant neoplasm of digestive organs; Z83.3 Family history of diabetes mellitus; Z82.49 Family history of ischemic heart disease and other diseases of the circulatory system; Z79.4 Long term (current) use of insulin; Z79.84 Long term (current) use of oral hypoglycemic drugs; Z79.899 Other long term (current) drug therapy

== ENCOUNTER 2017-04-17 05:35 | Emergency (ER) | payer OTHER ==
[~2017-04-17] VITALS: Ht 162.6 cm; Wt 106.7 kg
[~2017-04-17 05:35] MED LIST changes: +CEFD300C3 PO; -DICY20TA35 PO; +MDRDP21 PO; -OXYC1TAB3 PO
[2017-04-17 05:38] VITALS: TEMP 36.9; Ht 162.6 cm; Wt 106.7 kg
[2017-04-17] MEDS ORDERED: DiphenhydrAMINE HCL 50 MG/ML VIAL IV STA (05:56)
[2017-04-17] MEDS ORDERED: PROCHLORPERAZINE 5 MG/ML 2 ML VIAL IV STA (05:56)
[2017-04-17] MEDS ORDERED: GI COCKTAIL PO ONE (06:00)
[2017-04-17] MEDS ORDERED: SODIUM CHLORIDE 0.9% 1000ML 1,000 ML IV ONE (06:00)
[2017-04-17] MEDS ORDERED: ALUMINUM/MAGNESIUM SUSP 30 ML UDC ONE (06:11)
[2017-04-17] MEDS ORDERED: LIDOCAINE HCL 2% VISC SOLN 20 ML UDC ONE (06:11)
[2017-04-17 06:20] LABS: BASO % 0.5 %; BASO ABS # 0.07 K/uL (0-0.2); COMPLETE YES; EOS % 0.8 %; HEMATOCRIT 42.4 % (37-47); IG% 0.3 %; LYMPH % 28.9 %; LYMPH ABS # 4.32 K/uL (1.2-3.4); MEAN CELL VOLUME 83.8 fL (80-100); MEAN CORPUSCULAR HEMOGLOBIN 29.2 pg (25-34); MEAN CORPUSCULAR HGB CONC 34.9 g/dl (32-36); MONO % 6.9 %; NEUT % 62.6 %; PLATELET COUNT 335 K/uL (130-400); RED BLOOD COUNT 5.06 M/uL (4.2-5.4); WHITE BLOOD COUNT 14.94 K/uL (4.8-10.8)
[2017-04-17 06:38] LABS: BUN/CREATININE RATIO 18.4 (10-20); CALCIUM 9.4 mg/dl (8.5-10.1); CREATININE 0.72 mg/dl (0.60-1.20); POTASSIUM 3.2 mmol/L (3.5-5.1)
[2017-04-17 06:40] LABS: ALB/GLOB RATIO 0.7 (0.9-2)
[2017-04-17 06:49] LABS: MANUAL MICROSCOPIC REQUIRED? NO; REVIEW REQ? NO; URINE APPEARANCE CLEAR (CLEAR); URINE BILIRUBIN NEG (NEG); URINE COLOR YELLOW; URINE EPITHELIAL CELL AUTO >30 /lpf (0-5); URINE NITRITE NEG (NEG); URINE PH 6.5 (4.5-7.5); URINE SPECIFIC GRAVITY 1.017 (1.000-1.030); UROBILINOGEN NEG (NEG); ZZUR CULT IF INDIC CLEAN CATCH NO
[2017-04-17 07:22] LABS: BENZODIAZEPINE, URINE NEG (NEG); COCAINE,URINE NEG (NEG); PHENCYCLIDINE, URINE NEG (NEG)
--- NOTE | 2017-04-17 07:24 | DIAGNOSTIC IMAGING REPORT ---
CHEST AND ABDOMEN 2 VIEWS HISTORY: Epigastric abdominal pain. COMPARISON: Chest x-ray and abdomen and pelvis CT 04/11/2017. FINDINGS: Small linear density left lung base consistent with scarring or atelectasis. The lungs are otherwise clear. The heart is stable in size. No pleural effusions. No pneumothorax. Cholecystectomy. A small amount of residual contrast within the colon due to the recent CT examination. The bowel gas pattern is unremarkable. No evidence for bowel obstruction. No renal or ureteral calculi. No pneumoperitoneum. No pneumatosis. No radiopaque foreign bodies identified within the abdomen or pelvis. IMPRESSION: No acute cardiopulmonary process. No evidence for bowel obstruction. Electronically signed by: Jeremy Russo M.D. 04/17/2017 7:22 AM Dictated Date/Time: 04/17/2017 7:19 AM
[2017-04-17 07:51] VITALS: BP 121/69; PULSE 85; O2SAT 95
--- NOTE | 2017-04-17 22:07 | EMERGENCY ROOM VISIT NOTE ---
History First contact with patient: 05:45 Chief Complaint: GI ASSESSMENT Stated Complaint: GASTRIC PAIN/NAUSEA Nursing Triage Summary: pt states ac ouple weeks ago was dx with c digg, c/o upper abd pain, beltching nausea for past week History of Present Illness The patient is a 52 year old female who presents to the Emergency Room with complaints of persistent abdominal pain, bloating, and belching for the past week. The patient had similar symptoms 7 days ago and was seen here in the department with this complaint. At that time she had a CT scan and blood work without significant findings. The patient states that she was diagnosed about 2 weeks ago with C. difficile and is taking Flagyl. She also reportedly is on Omnicef and prednisone for a left ear infection. The patient states that she has taken Tylenol and Tylenol at home today without improvement of her discomfort which she currently rates an 8/10. She is not taking anything else for her pain. She reports that she has an umbilical hernia and has a follow-up appointment with a surgeon in 4 days regarding this. She has been using the bathroom essentially as normal since starting the Flagyl. Review of Systems More than 10 systems were reviewed and otherwise negative with the exception of history of present illness. Past Medical/Surgical History Medical Problems: (1) Anxiety (2) Appendectomy (3) Asthma (4) Bilateral inguinal hernia repair (5) Cholecystitis (6) Diabetes mellitus type 2 (7) fibromyalgia (8) History of - tubal ligation (9) Left total knee revision in 03/09 (10) presyncope (11) seasonal allergies Family History Cancer Colon cancer Diabetes mellitus Gallbladder disease Heart disease Hypertension Lung disease Social History Smoking Status: Current Every Day Smoker Alcohol Use: none Drug Use: marijuana Marital Status: Housing Status: lives with family Occupation Status: unemployed Current/Historical Medications Scheduled Atorvastatin (Lipitor), 40 MG PO HS Calcium Carbonate-Vitamin D (Calcium), 1 TAB PO DAILY Cefdinir (Cefdinir), 300 MG PO BID Cetirizine (Zyrtec), 10 MG PO QAM Cholecalciferol (Vitamin D3), 2,000 INTER.UNIT PO DAILY Cinnamon (Cinnamon), 500 MG PO DAILY Duloxetine HCl (Duloxetine HCl), 60 MG PO DAILY Fluticasone Prop/Salmeterol (Advair Diskus 500/50 60 Dose), 1 PUFF INH BID Glimepiride (Glimepiride), 4 MG PO QAM Insulin Aspart (Novolog Flexpen), SQ AC Insulin Glargine (Lantus Solostar), 50 UNITS SC QPM Krill Oil (Krill Oil), 1 CAP PO DAILY Magnesium Oxide (Mag-Ox), 400 MG PO DAILY Metformin HCl (Metformin HCl), 500 MG PO BID Methylprednisolone (Methylprednisolone Dose P), MG PO UD Metronidazole (Metronidazole), 500 MG PO TID Milk Thistle Seed (Bulk) (Milk Thistle), 1 DOSE PO DAILY Multivitamin (Multivitamin), 1 TAB PO DAILY Omeprazole (Prilosec), 40 MG PO DAILY Turmeric (Curcuma Longa) (Turmeric), 500 MG PO BID Scheduled PRN Albuterol Hfa (Ventolin Hfa), 2 PUFFS INH Q6H PRN for Shortness of Breath Albuterol Sulfate (Albuterol Sulfate), 1 VIAL INH Q4H PRN for SOB/Wheezing Baclofen (Baclofen), 10 MG PO BID PRN for Muscle Spasm Fluticasone Propionate (Fluticasone Propionate), 2 SPRAYS DANIKA DAILY PRN for Allergy Symptoms Hydrocodone/Acetaminophen 10MG/325MG ([place] 10MG/325MG), 1 TAB PO Q6H PRN for Pain Lorazepam (Lorazepam), 1 MG PO TID PRN for Anxiety Ondasetron Odt (Zofran Odt), 4 MG SL Q6H PRN for Nausea Physical Exam Vital Signs Date Time Temp Pulse Resp B/P (MAP) Pulse Ox O2 Delivery O2 Flow Rate FiO2 04/17/17 07:51 85 18 121/69 95 Room Air 04/17/17 05:38 36.9 107 18 145/77 97 Room Air Physical Exam VITALS: Vitals are noted on the nurse's note and reviewed by myself. Vital signs stable. GENERAL: Well-developed, well-nourished, white female, who is in no acute distress and resting comfortably. Patient is cooperative with the examination. EARS: External ear normal. External auditory canals clear, tympanic membranes pearly [place] without erythema or effusion bilaterally. HEART: Regular rate and rhythm without murmurs gallops or rubs. LUNGS: Clear to auscultation bilaterally without wheezes, rales or rhonchi. No retractions or accessory muscle use. ABDOMEN: Positive normal bowel sounds x 4. Soft, nontender, without masses or organomegaly. No guarding or rebound tenderness. MUSCULOSKELETAL: No muscle atrophy, erythema, or edema noted. Full range of motion without joint tenderness in all extremities. Medical Decision & Procedures ER Provider Diagnostic Interpretation: CHEST AND ABDOMEN 2 VIEWS HISTORY: Epigastric abdominal pain. COMPARISON: Chest x-ray and abdomen and pelvis CT 04/11/2017. FINDINGS: Small linear density left lung base consistent with scarring or atelectasis. The lungs are otherwise clear. The heart is stable in size. No pleural effusions. No pneumothorax. Cholecystectomy. A small amount of residual contrast within the colon due to the recent CT examination. The bowel gas pattern is unremarkable. No evidence for bowel obstruction. No renal or ureteral calculi. No pneumoperitoneum. No pneumatosis. No radiopaque foreign bodies identified within the abdomen or pelvis. IMPRESSION: No acute cardiopulmonary process. No evidence for bowel obstruction. Laboratory Results 04/17/17 06:05 Red Blood Count 5.06, Mean Corpuscular Volume 83.8, Mean Corpuscular Hemoglobin 29.2, Mean Corpuscular Hemoglobin Concent 34.9, Mean Platelet Volume 9.0, Neutrophils (%) (Auto) 62.6, Lymphocytes (%) (Auto) 28.9, Monocytes (%) (Auto) 6.9, Eosinophils (%) (Auto) 0.8, Basophils (%) (Auto) 0.5, Neutrophils # (Auto) 9.35, Lymphocytes # (Auto) 4.32, Monocytes # (Auto) 1.03, Eosinophils # (Auto) 0.12, Basophils # (Auto) 0.07 04/17/17 06:05 Test 04/17/17 00:00 04/17/17 06:05 Urine Color YELLOW Urine Appearance CLEAR (CLEAR) Urine pH 6.5 (4.5-7.5) Urine Specific [place] 1.017 (1.000-1.030) Urine Protein NEG (NEG) Urine Glucose (UA) 3+ (NEG) Urine Ketones NEG (NEG) Urine Occult Blood NEG (NEG) Urine Nitrite NEG (NEG) Urine Bilirubin NEG (NEG) Urine Urobilinogen NEG (NEG) Urine Leukocyte Esterase MODERATE (NEG) Urine WBC (Auto) 1-5 /hpf (0-5) Urine RBC (Auto) 5-10 /hpf (0-4) Urine Hyaline Casts (Auto) 1-5 /lpf (0-5) Urine Epithelial Cells (Auto) >30 /lpf (0-5) Urine Bacteria (Auto) NEG (NEG) Urine Opiates Screen NEG (NEG) Urine Methadone, Qualitative NEG (NEG) Urine Barbiturates POS (NEG) Urine Phencyclidine (PCP) Level NEG (NEG) Ur Amphetamine/Methamphetamine NEG (NEG) MDMA (Ecstasy) Screen NEG (NEG) Urine Benzodiazepines Screen NEG (NEG) Urine Cocaine Metabolite NEG (NEG) Urine Marijuana (THC) NEG (NEG) White Blood Count 14.94 K/uL (4.8-10.8) Red Blood Count 5.06 M/uL (4.2-5.4) Hemoglobin 14.8 g/dL (12.0-16.0) Hematocrit 42.4 % (37-47) Mean Corpuscular Volume 83.8 fL (80-100) Mean Corpuscular Hemoglobin 29.2 pg (25-34) Mean Corpuscular Hemoglobin Concent 34.9 g/dl (32-36) Platelet Count 335 K/uL (130-400) Mean Platelet Volume 9.0 fL (7.4-10.4) Neutrophils (%) (Auto) 62.6 % Lymphocytes (%) (Auto) 28.9 % Monocytes (%) (Auto) 6.9 % Eosinophils (%) (Auto) 0.8 % Basophils (%) (Auto) 0.5 % Neutrophils # (Auto) 9.35 K/uL (1.4-6.5) Lymphocytes # (Auto) 4.32 K/uL (1.2-3.4) Monocytes # (Auto) 1.03 K/uL (0.11-0.59) Eosinophils # (Auto) 0.12 K/uL (0-0.5) Basophils # (Auto) 0.07 K/uL (0-0.2) RDW Standard Deviation 46.5 fL (36.4-46.3) RDW Coefficient of Variation 15.3 % (11.5-14.5) Immature Granulocyte % (Auto) 0.3 % Immature Granulocyte # (Auto) 0.05 K/uL (0.00-0.02) Anion Gap 6.0 mmol/L (3-11) Est Creatinine Clear Calc Drug Dose 106.5 ml/min Estimated GFR () 110.0 Estimated GFR (Non- 94.9 BUN/Creatinine Ratio 18.4 (10-20) Calcium Level 9.4 mg/dl (8.5-10.1) Total Bilirubin 0.4 mg/dl (0.2-1) Aspartate Amino Transf (AST/SGOT) 8 U/L (15-37) Alanine Aminotransferase (ALT/SGPT) 21 U/L (12-78) Alkaline Phosphatase 92 U/L (45-117) Total Protein 8.1 gm/dl (6.4-8.2) Albumin 3.4 gm/dl (3.4-5.0) Globulin 4.7 gm/dl (2.5-4.0) Albumin/Globulin Ratio 0.7 (0.9-2) Lipase 187 U/L (73-393) Medications Administered Medications (Trade) Dose Ordered Sig/Darrell Route Start Time Stop Time Status Last Admin Dose Admin Diphenhydramine HCl (Benadryl Inj) 50 mg NOW STAT IV 04/17/17 05:56 04/17/17 05:58 DC 04/17/17 06:14 50 MG Prochlorperazine Edisylate (Compazine Inj) 10 mg NOW STAT IV 04/17/17 05:56 04/17/17 05:58 DC 04/17/17 06:14 10 MG Sodium Chloride 1,000 ml @ 999 mls/hr Q1H1M ONCE IV 04/17/17 06:00 04/17/17 07:00 DC 04/17/17 06:13 999 MLS/HR Al Hydroxide/Mg Hydroxide (Maalox Susp) 30 ml STK-MED ONCE .ROUTE 04/17/17 06:11 04/17/17 06:12 DC 04/17/17 06:14 30 ML Lidocaine HCl (Viscous Lidocaine 2% Soln) 20 ml STK-MED ONCE .ROUTE 04/17/17 06:11 04/17/17 06:12 DC 04/17/17 06:14 10 ML ED Course Physical exam and history were performed. Nursing notes, EMR, and Medication List were personally reviewed. Patient appears to have reports of generalized abdominal pain. On examination she does not have a single point tenderness. There is no rebound or guarding. The patient has had symptoms like this for at least the past week and previously had a CT scan without acute findings. IV access was established and labs were obtained. Films were ordered. Urine was collected. The patient was given Benadryl and Compazine for her nausea. She was also given a GI cocktail. The patient's blood work is as above and was reviewed. She does have an elevated white blood cell count of 14,000, however this is fairly typical for her, and she is currently on prednisone. This level is consistent with where her levels were last week. She does not have a significant anemia or gross electrolyte imbalance. Urine is contaminated with culture pending. She does not have benzodiazepines or narcotics in her drug of abuse screen. X-ray does not show obstruction. The patient was reevaluated multiple times with a course of her stay. She continues without significant reproducible tenderness. Her abdomen is soft and does not seem consistent with an acute surgical abdomen at this time. The case was discussed with my attending physician, Dr. Sliva. Patient has had recent CT, and I do not feel repeat imaging is necessary at this time. I had a lengthy discussion with the patient regarding her symptoms. She regularly receives Vicodin and Ativan from her primary care physician, and has filled these every month for the past 12 months. She did not take either of these medications today, and she indicated that she does not take them every day. I explained that it is important to her medication as prescribed, and it is reasonable to take prescription pain medication when having pain. The patient voiced understanding of this. The patient was referred back to her primary care physician for treatment. She was otherwise invited back to the ER with any new, worsening, or concerning symptoms. The chart was completed utilizing [employer] Speech Voice Recognition Software. Grammatical errors, random word insertions, pronoun errors, and incomplete sentences are an occasional consequence of this system due to software limitations, ambient noise, and hardware issues. Any formal questions or concerns about the content, text, or information contained within the body of this dictation should be directly addressed to the provider for clarification. . Medical Decision Differential diagnosis: Etiologies such as acute on chronic pain, GERD, malingering, appendicitis, diverticulitis, PUD, biliary pathology, UTI, pancreatitis, obstruction, mesenteric ischemia, aortic pathology, infections, inflammatory bowel disease, renal colic, as well as others were entertained. Blood Pressure Screening Patient's blood pressure: Normal blood pressure Impression Primary Impression: Generalized abdominal pain Departure Information Dispostion Home / Self-Care Condition GOOD Forms HOME CARE DOCUMENTATION FORM, IMPORTANT VISIT INFORMATION Patient Instructions My [facility] Additional Instructions You were seen and evaluated today on an emergency basis only. This is not a substitute for, or an effort to provide, complete comprehensive medical care. It is not possible to recognize and treat all injuries or illnesses in a single emergency department visit. For this reason it is recommended that you followup with your primary care physician this week for ongoing care and evaluation. Continue your medications as prescribed. Drink plenty of fluids and remain well hydrated. You are welcome to return to the emergency department anytime with new, worsening, or concerning symptoms.
== END 2017-04-17 07:52 | disposition home or self-care (01) ==
LOC: C.EDB 05:36 → C.EDA 07:52
DX: R10.84 Generalized abdominal pain (principal); J45.909 Unspecified asthma, uncomplicated; E11.9 Type 2 diabetes mellitus without complications; M79.7 Fibromyalgia; F17.200 Nicotine dependence, unspecified, uncomplicated; Z98.51 Tubal ligation status; Z90.89 Acquired absence of other organs; Z98.890 Other specified postprocedural states; Z80.0 Family history of malignant neoplasm of digestive organs; Z83.3 Family history of diabetes mellitus; Z82.49 Family history of ischemic heart disease and other diseases of the circulatory system; Z79.4 Long term (current) use of insulin; Z79.84 Long term (current) use of oral hypoglycemic drugs; Z79.899 Other long term (current) drug therapy

== ENCOUNTER → 2017-04-29 | Outpatient (CLI) | payer OTHER ==
--- NOTE | 2017-04-29 16:03 | DIAGNOSTIC IMAGING REPORT ---
CHEST 2 VIEWS ROUTINE CLINICAL HISTORY: 52 years-old Female presenting with COUGH. TECHNIQUE: PA and lateral views of the chest were obtained. COMPARISON: 04/17/2017. FINDINGS: Cardiomediastinal silhouette normal. Lungs and pleural spaces clear. Osseous structures normal. Cholecystectomy clips noted. IMPRESSION: 1. No acute cardiopulmonary disease. Electronically signed by: Franck Guerra M.D. 04/29/2017 4:02 PM Dictated Date/Time: 04/29/2017 4:00 PM
== END | disposition home or self-care (01) ==
LOC: C.RAD 15:45
PROVIDERS: ATTEND Family Medicine
DX: R05 Cough (principal)

== ENCOUNTER 2017-05-08 09:48 | Emergency (ER) | payer OTHER ==
[~2017-05-08] VITALS: Ht 162.6 cm; Wt 106.2 kg
[2017-05-08 09:55] VITALS: TEMP 37.4
[2017-05-08] MEDS ORDERED: PROCHLORPERAZINE 5 MG/ML 2 ML VIAL IV STA (10:14)
[2017-05-08] MEDS ORDERED: DiphenhydrAMINE HCL 50 MG/ML VIAL IV STA (10:14)
[2017-05-08 11:00] LABS: HEMOGLOBIN 14.5 g/dL (12.0-16.0); MEAN CORPUSCULAR HEMOGLOBIN 29.4 pg (25-34); MEAN CORPUSCULAR HGB CONC 34.5 g/dl (32-36); MEAN PLATELET VOLUME 9.1 fL (7.4-10.4); PLATELET COUNT 256 K/uL (130-400); RED CELL DISTRIBUTION WIDTH CV 14.8 % (11.5-14.5); RED CELL DISTRIBUTION WIDTH SD 45.9 fL (36.4-46.3); WHITE BLOOD COUNT 13.07 K/uL (4.8-10.8)
--- NOTE | 2017-05-08 11:10 | DIAGNOSTIC IMAGING REPORT ---
CT HEAD WITHOUT CONTRAST (CT) CLINICAL HISTORY: Severe right-sided headache. Possible hemorrhage. COMPARISON STUDY: 05/10/2015 TECHNIQUE: Axial CT of the brain is performed from the vertex to the skull base. IV contrast was not administered for this examination. A dose lowering technique was utilized adhering to the principles of ALARA. CT DOSE: FINDINGS: No intra or extra-axial mass lesions are visualized. There is no CT evidence of acute cortical infarction. There is no evidence of midline shift. There is no acute hemorrhage. No calvarial fractures are visualized. There is no evidence of pathologic ventricular dilatation. There is extensive left mastoid effusion. There is opacification left middle ear cavity. IMPRESSION: 1. Extensive left mastoid effusion with opacification left middle ear cavity 2. Otherwise no acute intracranial findings. Electronically signed by: Dexter Sena M.D. 05/08/2017 11:09 AM Dictated Date/Time: 05/08/2017 11:07 AM
--- NOTE | 2017-05-08 11:15 | DIAGNOSTIC IMAGING REPORT ---
CT SINUSES-MAXILLOFACIAL W/O CLINICAL HISTORY: Sinusitis. Left ear pain. COMPARISON STUDY: None. TECHNIQUE: CT scan of the paranasal sinuses was performed in the axial plane. Coronal reconstructed images were obtained and reviewed. A dose lowering technique was utilized adhering to the principles of ALARA. CT DOSE: FINDINGS: There is extensive left mastoid effusion with near complete opacification of the left mastoid air cells. There is soft tissue and fluid within the left middle ear cavity encasing the ossicles. There is mild mucosal thickening within the sphenoid sinus. There is mild polypoid mucosal thickening involving the maxillary sinuses. There is minor mucosal thickening within the ethmoid and frontal sinuses. The ostiomeatal units appear patent. The right ethmoid notches is protected. The left ethmoid notches are unprotected. The frontoethmoidal recesses appear patent. IMPRESSION: 1. Extensive acute left mastoiditis and left otitis media. 2. Early erosive changes involving the roof of the left mastoid cannot be excluded. Electronically signed by: Dexter Sena M.D. 05/08/2017 11:13 AM Dictated Date/Time: 05/08/2017 11:09 AM
[2017-05-08 11:17] LABS: BASO % 0.3 %; BASO ABS # 0.04 K/uL (0-0.2); EOS ABS # 0.13 K/uL (0-0.5); IG# 0.06 K/uL (0.00-0.02); LYMPH % 15.2 %; LYMPH ABS # 1.99 K/uL (1.2-3.4); MONO % 8.1 %; MONO ABS # 1.06 K/uL (0.11-0.59); NEUT % 74.9 %; NEUT ABS # 9.79 K/uL (1.4-6.5)
[2017-05-08 11:18] LABS: INFLUENZA B ANTIGEN Neg for Influ B (NEG)
[2017-05-08 11:20] LABS: ALBUMIN 3.4 gm/dl (3.4-5.0); CREATININE 0.61 mg/dl (0.60-1.20); POTASSIUM 3.8 mmol/L (3.5-5.1)
[2017-05-08 11:23] LABS: TOTAL PROTEIN 8.3 gm/dl (6.4-8.2)
[2017-05-08 11:26] LABS: PTT PATIENT 27.6 SECONDS (21.0-31.0)
[2017-05-08] MEDS ORDERED: MoRPHine SULFATE 4 MG/ML 1 ML CARP\\VIAL IV STA ×2 (11:43→15:39)
[2017-05-08] MEDS ORDERED: VANCOMYCIN 1GM/270ML NSS IV STA (11:58)
[2017-05-08] MEDS ORDERED: CEFTRIAXONE SOD INJ 1 GM ADDVIAL IV STA (11:58)
[2017-05-08 12:17] LABS: INFLUENZA A PCR Neg for Influ A (NEG); INFLUENZA B PCR Neg for Influ B (NEG)
[2017-05-08 13:03] LABS: CSF GLUCOSE 131 mg/dl (40-70); CSF TOTAL PROTEIN 60.5 mg/dl (15.0-45.0)
--- NOTE | 2017-05-08 13:21 | DIAGNOSTIC IMAGING REPORT ---
FLUOROSCOPICALLY GUIDED DIAGNOSTIC LUMBAR PUNCTURE CLINICAL HISTORY: The liver, headache. Suspected meningitis. COMPARISON STUDY: No previous studies for comparison. FINDINGS: A timeout was performed. The risks the procedure were explained the patient informed consent was obtained. 20 seconds of fluoroscopic time was utilized. No fluoroscopic spot images were acquired. The patient was prepped and draped in sterile fashion. The skin was anesthetized 1% lidocaine. Under fluoroscopic guidance, the L3 level, a 20-gauge spinal needle was introduced into the thecal sac. 8 cc of CSF was removed via gravity drip. This is 4 tubes and sent for laboratory analysis as specified by the referring clinician. There were no complications. IMPRESSION: 1. Successful fluoroscopically guided diagnostic lumbar puncture the L3 level. 8 cc of clear CSF was removed and sent for laboratory analysis Electronically signed by: Dexter Sena M.D. 05/08/2017 1:20 PM Dictated Date/Time: 05/08/2017 1:18 PM
--- NOTE | 2017-05-08 15:16 | EMERGENCY ROOM VISIT NOTE ---
History Report prepared by Brady: Marco Warner Under the Supervision of: Dr. Anselmo Puente M.D. First contact with patient: 10:05 Chief Complaint: EAR PAIN Stated Complaint: R EAR PAIN,R SIDE OF HEAD,THICK MUCUS History of Present Illness The patient is a 52 year old female who presents to the Emergency Room with complaints of right sided ear pain that began last night. She rates her pain a 9 /10 in severity. She has a past medical history of migraines and a recent left sided ear infection. Two weeks ago, her ear infection was treated with Omnicef and Prednisone which helped her symptoms. She finished her prescriptions 1 week ago. However, last night she began to experience pain to her right ear with an associated right sided headache. She denies any sore throat, chest pain, shortness of breath, or body aches. She notes that she has had a low grade fever of 99.5, a productive cough, rhinorrhea, and mild generalized weakness as well. Her sputum is yellow in color. Her headache is exacerbated by swallowing or movement. Source of History: patient Onset: last night Position: ear (right) Symptom Intensity: 9/10 Quality: ache Timing: constant Associated Symptoms: + fevers (low grade), + cough (productive), + weakness , No sorethroat, No chest pain, No SOB Note: She is experiencing rhinorrhea. She denies having body aches. Review of Systems See HPI for pertinent positives & negatives. A total of 10 systems reviewed and were otherwise negative. Past Medical & Surgical Medical Problems: (1) Anxiety (2) Appendectomy (3) Asthma (4) Bilateral inguinal hernia repair (5) Cholecystitis (6) Diabetes mellitus type 2 (7) fibromyalgia (8) History of - tubal ligation (9) Left total knee revision in 03/09 (10) presyncope (11) seasonal allergies Family History Cancer Colon cancer Diabetes mellitus Gallbladder disease Heart disease Hypertension Lung disease Social History Smoking Status: Current Every Day Smoker Alcohol Use: none Drug Use: marijuana Marital Status: Housing Status: lives with family Occupation Status: unemployed Current/Historical Medications Scheduled Atorvastatin (Lipitor), 40 MG PO HS Calcium Carbonate-Vitamin D (Calcium), 1 TAB PO DAILY Cefdinir (Cefdinir), 300 MG PO BID Cetirizine (Zyrtec), 10 MG PO QAM Cholecalciferol (Vitamin D3), 2,000 INTER.UNIT PO DAILY Cinnamon (Cinnamon), 500 MG PO DAILY Duloxetine HCl (Duloxetine HCl), 60 MG PO DAILY Fluticasone Prop/Salmeterol (Advair Diskus 500/50 60 Dose), 1 PUFF INH BID Glimepiride (Glimepiride), 4 MG PO QAM Insulin Aspart (Novolog Flexpen), SQ AC Insulin Glargine (Lantus Solostar), 50 UNITS SC QPM Krill Oil (Krill Oil), 1 CAP PO DAILY Magnesium Oxide (Mag-Ox), 400 MG PO DAILY Metformin HCl (Metformin HCl), 500 MG PO BID Methylprednisolone (Methylprednisolone Dose P), MG PO UD Metronidazole (Metronidazole), 500 MG PO TID Milk Thistle Seed (Bulk) (Milk Thistle), 1 DOSE PO DAILY Multivitamin (Multivitamin), 1 TAB PO DAILY Omeprazole (Prilosec), 40 MG PO DAILY Turmeric (Curcuma Longa) (Turmeric), 500 MG PO BID Scheduled PRN Albuterol Hfa (Ventolin Hfa), 2 PUFFS INH Q6H PRN for Shortness of Breath Albuterol Sulfate (Albuterol Sulfate), 1 VIAL INH Q4H PRN for SOB/Wheezing Baclofen (Baclofen), 10 MG PO BID PRN for Muscle Spasm Fluticasone Propionate (Fluticasone Propionate), 2 SPRAYS DANIKA DAILY PRN for Allergy Symptoms Hydrocodone/Acetaminophen 10MG/325MG ([place] 10MG/325MG), 1 TAB PO Q6H PRN for Pain Lorazepam (Lorazepam), 1 MG PO TID PRN for Anxiety Ondasetron Odt (Zofran Odt), 4 MG SL Q6H PRN for Nausea Allergies Coded Allergies: Pregabalin (Unverified Allergy, Intermediate, HIVES, 05/08/17) Amoxicillin (Verified Allergy, Mild, RASH, 05/08/17) Benzonatate (Verified Allergy, Mild, RASH, 05/08/17) Clindamycin (Verified Adverse Reaction, Severe, GI UPSET, 05/08/17) Doxycycline (Verified Adverse Reaction, Severe, VOMIT, 05/08/17) Tetracycline (Verified Adverse Reaction, Severe, VOMIT, 05/08/17) NSAIDs (Verified Adverse Reaction, Intermediate, nausea, 05/08/17) Hydromorphone (Verified Adverse Reaction, Unknown, severe headache, 05/08/17 ) Physical Exam Vital Signs Date Time Temp Pulse Resp B/P (MAP) Pulse Ox O2 Delivery O2 Flow Rate FiO2 05/08/17 18:04 92 Nasal Cannula 3.0 05/08/17 18:04 89 18 126/59 86 Room Air 05/08/17 16:15 93 Nasal Cannula 2.0 05/08/17 15:54 80 18 137/69 93 Nasal Cannula 2.0 05/08/17 13:28 80 18 133/60 93 Nasal Cannula 2.0 05/08/17 12:42 87 18 142/72 94 Room Air 05/08/17 11:45 90 18 149/84 94 Nasal Cannula 2.0 05/08/17 09:55 37.4 103 18 135/77 92 Room Air Physical Exam Constitutional: Vital signs reviewed. Eyes: Pupils are equal round reactive to light. Conjunctiva are noninjected. ENT: There is a purulent effusion to the left TM without rupture, diffuse erythema noted. The right TM is partially obscured without any significant signs of otitis media. Left maxillary sinus tenderness. No mastoid tenderness. Pharynx is clear without erythema or exudate. Mucous membranes are moist. Patient complains of right inferior and head pain when she moves her head. Respiratory: Clear to auscultation bilaterally. Breath sounds are equal bilaterally. Cardiovascular: Regular rate and rhythm. No rubs or gallops. GI: Soft, nondistended and nontender. Bowel sounds are present. Musculoskeletal: No peripheral edema. No lower extremity tenderness. Integumentary: No cyanosis. Neurological: The patient is awake and alert. Cranial nerves II-XII are intact. Motor is 5 out of 5 all extremities. Sensation is intact to light touch all extremities. Normal speech. No pronator drift. Psychiatric: Normal affect. Medical Decision & Procedures ER Provider Diagnostic Interpretation: Radiology results as stated below per my review and the radiologist's interpretation: CT SINUSES-MAXILLOFACIAL W/O CLINICAL HISTORY: Sinusitis. Left ear pain. COMPARISON STUDY: None. TECHNIQUE: CT scan of the paranasal sinuses was performed in the axial plane. Coronal reconstructed images were obtained and reviewed. A dose lowering technique was utilized adhering to the principles of ALARA. CT DOSE: FINDINGS: There is extensive left mastoid effusion with near complete opacification of the left mastoid air cells. There is soft tissue and fluid within the left middle ear cavity encasing the ossicles. There is mild mucosal thickening within the sphenoid sinus. There is mild polypoid mucosal thickening involving the maxillary sinuses. There is minor mucosal thickening within the ethmoid and frontal sinuses. The ostiomeatal units appear patent. The right ethmoid notches is protected. The left ethmoid notches are unprotected. The frontoethmoidal recesses appear patent. IMPRESSION: 1. Extensive acute left mastoiditis and left otitis media. 2. Early erosive changes involving the roof of the left mastoid cannot be excluded. Electronically signed by: Dexter Sena M.D. 05/08/2017 11:13 AM Dictated Date/Time: 05/08/2017 11:[address] HEAD WITHOUT CONTRAST (CT) CLINICAL HISTORY: Severe right-sided headache. Possible hemorrhage. COMPARISON STUDY: 05/10/2015 TECHNIQUE: Axial CT of the brain is performed from the vertex to the skull base. IV contrast was not administered for this examination. A dose lowering technique was utilized adhering to the principles of ALARA. CT DOSE: FINDINGS: No intra or extra-axial mass lesions are visualized. There is no CT evidence of acute cortical infarction. There is no evidence of midline shift. There is no acute hemorrhage. No calvarial fractures are visualized. There is no evidence of pathologic ventricular dilatation. There is extensive left mastoid effusion. There is opacification left middle ear cavity. IMPRESSION: 1. Extensive left mastoid effusion with opacification left middle ear cavity 2. Otherwise no acute intracranial findings. Electronically signed by: Dexter Sena M.D. 05/08/2017 11:09 AM Dictated Date/Time: 05/08/2017 11:07 AM FLUOROSCOPICALLY GUIDED DIAGNOSTIC LUMBAR PUNCTURE CLINICAL HISTORY: The liver, headache. Suspected meningitis. COMPARISON STUDY: No previous studies for comparison. FINDINGS: A timeout was performed. The risks the procedure were explained the patient informed consent was obtained. 20 seconds of fluoroscopic time was utilized. No fluoroscopic spot images were acquired. The patient was prepped and draped in sterile fashion. The skin was anesthetized 1% lidocaine. Under fluoroscopic guidance, the L3 level, a 20-gauge spinal needle was introduced into the thecal sac. 8 cc of CSF was removed via gravity drip. This is 4 tubes and sent for laboratory analysis as specified by the referring clinician. There were no complications. IMPRESSION: 1. Successful fluoroscopically guided diagnostic lumbar puncture the L3 level. 8 cc of clear CSF was removed and sent for laboratory analysis Electronically signed by: Dexter Sena M.D. 05/08/2017 1:20 PM Dictated Date/Time: 05/08/2017 1:18 PM Laboratory Results 05/08/17 10:35 Red Blood Count 4.94, Mean Corpuscular Volume 85.0, Mean Corpuscular Hemoglobin 29.4, Mean Corpuscular Hemoglobin Concent 34.5, Mean Platelet Volume 9.1, Neutrophils (%) (Auto) 74.9, Lymphocytes (%) (Auto) 15.2, Monocytes (%) (Auto) 8.1, Eosinophils (%) (Auto) 1.0, Basophils (%) (Auto) 0.3, Neutrophils # (Auto) 9.79, Lymphocytes # (Auto) 1.99, Monocytes # (Auto) 1.06, Eosinophils # (Auto) 0.13, Basophils # (Auto) 0.04 05/08/17 10:35 Test 05/08/17 10:30 05/08/17 10:35 05/08/17 12:43 Influenza Type A (RT-PCR) Neg for Influ A (NEG) Influenza Type A Antigen Neg for Influ A (NEG) Influenza Type B Antigen Neg for Influ B (NEG) Influenza Type B (RT-PCR) Neg for Influ B (NEG) White Blood Count 13.07 K/uL (4.8-10.8) Red Blood Count 4.94 M/uL (4.2-5.4) Hemoglobin 14.5 g/dL (12.0-16.0) Hematocrit 42.0 % (37-47) Mean Corpuscular Volume 85.0 fL (80-100) Mean Corpuscular Hemoglobin 29.4 pg (25-34) Mean Corpuscular Hemoglobin Concent 34.5 g/dl (32-36) Platelet Count 256 K/uL (130-400) Mean Platelet Volume 9.1 fL (7.4-10.4) Neutrophils (%) (Auto) 74.9 % Lymphocytes (%) (Auto) 15.2 % Monocytes (%) (Auto) 8.1 % Eosinophils (%) (Auto) 1.0 % Basophils (%) (Auto) 0.3 % Neutrophils # (Auto) 9.79 K/uL (1.4-6.5) Lymphocytes # (Auto) 1.99 K/uL (1.2-3.4) Monocytes # (Auto) 1.06 K/uL (0.11-0.59) Eosinophils # (Auto) 0.13 K/uL (0-0.5) Basophils # (Auto) 0.04 K/uL (0-0.2) RDW Standard Deviation 45.9 fL (36.4-46.3) RDW Coefficient of Variation 14.8 % (11.5-14.5) Immature Granulocyte % (Auto) 0.5 % Immature Granulocyte # (Auto) 0.06 K/uL (0.00-0.02) Prothrombin Time 10.0 SECONDS (9.0-12.0) Prothromb Time International Ratio 1.0 (0.9-1.1) Activated Partial Thromboplast Time 27.6 SECONDS (21.0-31.0) Partial Thromboplastin Ratio 1.1 Anion Gap 5.0 mmol/L (3-11) Est Creatinine Clear Calc Drug Dose 125.4 ml/min Estimated GFR () 119.1 Estimated GFR (Non- 102.8 BUN/Creatinine Ratio 8.4 (10-20) Calcium Level 9.0 mg/dl (8.5-10.1) Total Bilirubin 0.7 mg/dl (0.2-1) Direct Bilirubin 0.1 mg/dl (0-0.2) Aspartate Amino Transf (AST/SGOT) 13 U/L (15-37) Alanine Aminotransferase (ALT/SGPT) 24 U/L (12-78) Alkaline Phosphatase 108 U/L (45-117) Total Protein 8.3 gm/dl (6.4-8.2) Albumin 3.4 gm/dl (3.4-5.0) CSF Color COLORLESS CSF Appearance CLEAR CSF WBC 3 /uL (0-5) CSF RBC 0 /uL (0) CSF Xanthrochromic NO XANTHOCHROMIA CSF Cell Count Tube # 4 CSF Chemistry Tube # 2 CSF Glucose 131 mg/dl (40-70) CSF Total Protein 60.5 mg/dl (15.0-45.0) Laboratory results as reviewed by me. Medications Administered Medications (Trade) Dose Ordered Sig/Darrell Route Start Time Stop Time Status Last Admin Dose Admin Prochlorperazine Edisylate (Compazine Inj) 10 mg NOW STAT IV 05/08/17 10:14 05/08/17 10:17 DC 05/08/17 10:32 10 MG Diphenhydramine HCl (Benadryl Inj) 50 mg NOW STAT IV 05/08/17 10:14 05/08/17 10:17 DC 05/08/17 10:32 50 MG Morphine Sulfate (MoRPHine SULFATE INJ) 4 mg NOW STAT IV 05/08/17 11:43 05/08/17 11:45 DC 05/08/17 11:51 4 MG Vancomycin HCl (Vancomycin 1gm/ 270ml Nss) 1 gm NOW STAT IV 05/08/17 11:58 05/08/17 12:00 DC 05/08/17 13:27 1 GM Ceftriaxone Sodium (Rocephin Inj) 2 gm NOW STAT IV 05/08/17 11:58 05/08/17 12:00 DC 05/08/17 12:43 2 GM Morphine Sulfate (MoRPHine SULFATE INJ) 4 mg NOW STAT IV 05/08/17 15:39 05/08/17 15:40 DC 05/08/17 15:52 4 MG Cefepime HCl 1000 mg/Dextrose 111 ml @ 200 mls/hr NOW STAT IV 05/08/17 17:25 05/08/17 17:58 DC 05/08/17 18:03 200 MLS/HR Procedure Lumbar Puncture Indication: Headache, low grade temperature, evaluation for potential meningitis. Verbal consent was obtained after the risks and benefits were explained, including but not limited to headache, bleeding/clotting, scarring, infection, pain, and bone/joint/nerve damage. At this time, the risks of the procedure are less than the risks of NOT performing the procedure. A time out was taken and the correct patient and site identified. The patient was placed in the sitting position and the back was prepped with betadine and draped in the standard fashion. The L3 intervertebral space was identified, anesthetized locally with 4 ml of 1% lidocaine without epinephrine, and the spinal needle was inserted through the skin with the bevel parallel to the dural fibers. [The needle was carefully advanced into the lumbar cistern and 4 tubes of [] CSF was obtained. The stylet was replaced and the needle was removed. A bandaid was placed and the patient was placed in the supine position.] Patient was not tolerating the procedure very well. She began complaining of pain in her back, without neurological deficits or pain in her legs. Also, the patient is very sensitive to any palpation of her back, even the upper spine. ED Course 1005: The patient was evaluated in room B4. A complete history and physical exam was performed. 1014: Ordered Benadryl Inj 50 mg IV, Compazine Inj 10 mg IV 1126: Upon reevaluation, the patient is still having a bad headache. I reviewed the risks and benefits of a lumbar procedure with her. She agrees to the procedure. 1130: I performed a lumbar puncture procedure at this time. Please see the procedure note for more information. I was unable to obtain fluid, so Dr. Sena of Radiology will do the LP under fluoroscopy. 1143: Ordered Morphine Sulfate 4 mg IV 1158: Ordered Rocephin Inj 2 gm IV, Vancomycin HCl 1 gm IV 1405: I spoke with Dr. Brandon Santoyo of [facility] [place]. We discussed the patient and her results. The patient will be further evaluated by him. He requested that I speak with ENT. 1410: I spoke with Dr. Benson of ENT. We discussed the patient and her results. He states that there is no need for emergent surgical intervention. He will come see the patient as a consult. Dr. Brandon Santoyo was made aware. 1412: I updated the patient on her test results. She is agreeable to inpatient care for IV antibiotics. 1722: I spoke with Dr. Cabezas of ENT. We discussed the patient and her results. They will be happy to see the patient as a consult, but we will need to speak with a hospitalist for transfer. 1732: [facility] We discussed the patient and her results. They informed me that there is a 24-48 hour wait for a bed. We will be calling [facility], the patient is agreeable. Medical Decision This is a 52-year-old female presents with headache, low grade fevers and sinus symptoms. Differential diagnosis includes sinusitis, outpatient treatment failure, meningitis, migraine headache, intracranial mass, intracranial bleed, influenza, mastoiditis. I did perform a limited focused review of portions of the patient's old chart on the electronic medical record. The patient was seen here last month for abdominal pain. I did evaluate the patient as noted above. The patient is presenting with a right-sided headache. She was treated with antibiotics about a week ago for a left otitis media and complains of right-sided ear pain today. Her right ear, however, is unremarkable and she does have a purulent effusion behind the left TM. She also has tenderness over the left maxillary sinus. IV access was established. I did treat patient with IV Benadryl and Compazine. I did order and review the patient's blood work as noted in the electronic medical record. Her white blood cell count is over 13,000. I did order a CT of the head. I did review the images myself as well as the radiology report as described above. There is no evidence of acute intracranial process. She does have sinusitis throughout the sinuses on the left side as well as an effusion behind the left TM. I did reassess patient. Her headache is not improved at all. I did discuss the test results with her. I did recommend lumbar puncture to rule out meningitis. I did attempt to perform lumbar puncture as noted above. The patient did not tolerate the procedure well. She had significant pain despite local anesthesia. She even had tenderness to her upper spine while I was trying to find landmarks. Because of her discomfort and body habitus I did abort any further efforts. I did talk to Dr. Smart who did perform a lumbar puncture under fluoroscopic guidance. I did treat her empirically with IV ceftriaxone and vancomycin. The patient was given IV morphine for pain. CSF analysis shows elevated glucose and protein but no significant elevation of her white blood cell count or any organisms or leukocytes on Gram stain. I did discuss the test results with the patient. I did recommend hospitalization for IV antibiotics given her significant sinusitis despite recent anabiotic treatment and persistent pain. I did discuss case with the hospitalist and case filler. The hospitalist requested that I speak to the ENT physician on- call. I did speak to Dr. Benson who did not feel any acute intervention was indicated at this time and agreed with hospitalization with IV antibiotics. 17:10 I did speak to the hospitalist about this patient. Apparently I had miscommunicated with the ENT doctor. I told him acute sinusitis rather than mastoiditis. He had a discussion with the ENT physician who felt the patient should be transferred to a tertiary care center. I did reassess the patient who states she doesn't really have any pain on the left side where her mastoiditis is found. Her pain is all on the right side. I did discuss transfer with the patient and she requested [facility] over [place]. I did contact [facility]. The ENT physician and hospitalist was accepted the patient for transfer. Unfortunately I was told that there would be a 24-48 hour wait for bed availability. I therefore called [facility] and spoke to Dr. Interiano of ENT. He requested to speak to the ENT physician here. We did have a conference call with Dr. Benson and Dr. Interiano. After further deliberation he did accept the transfer to the ED. I spoke to Dr. Patel in the ED who also accepted the patient. I did update the patient and the nurse. The patient will be transferred via ALS ambulance to [facility] emergency Department. Medication Reconcilliation Current Medication List: was personally reviewed by me Blood Pressure Screening Patient's blood pressure: Elevated blood pressure Blood pressure disposition: Elevated BP felt to be situational Consults Time Called: 1400 Consulting Physician: Dr. Brandon Aguilar [facility] Returned Call: 1405 We discussed the patient and her results. The patient will be further evaluated by him. He recommended I speak with ENT. 1415: He was made aware of Dr. Benson's plans. Additional Consults: Time Called: 1407 Consulted Physician: Dr. Kelley JAMES Returned Call: 1410 Additional Comments: We discussed the patient's case. He believes there is no need for emergent surgical intervention. He will see the patient as a consult. Time Called: 1720 Consulted Physician: Dr. Jocelynn Arreola Returned Call: 1722 Additional Comments: We discussed the patient's case. They will be happy to see the patient in consult, but we need to speak with a hospitalist for transfer. Time Called: 1728 Consulted Physician: Dr Hossein Navarro [facility] Returned Call: 1736 Additional Comments: We discussed the patient and her results. They said that there is a 24-48 hour wait for a bed. We will be calling [place]. Impression Primary Impression: Mastoiditis of left side Additional Impressions: Suppurative otitis media Acute headache Failure of outpatient treatment Pansinusitis C. difficile diarrhea Scribe Attestation The scribe's documentation has been prepared under my direct and personally reviewed by me in its entirety. I confirm that the note above accurately reflects all work, treatment, procedures, and medical decision making performed by me. Departure Information Dispostion Transfer Acute Care Facility Referrals Israel Nicole M.D. (PCP) Patient Instructions My [facility] Problem Qualifiers Additional Impressions: Suppurative otitis media Chronicity: unspecified Laterality: left Qualified Codes: H66.42 - Suppurative otitis media, unspecified, left ear Acute headache Headache type: unspecified Intractability: not intractable Qualified Codes : R51 - Headache Pansinusitis Chronicity: unspecified Qualified Codes: J32.4 - Chronic pansinusitis
[2017-05-08 16:15] VITALS: O2SAT 93; Ht 162.6 cm; Wt 106.2 kg
[2017-05-08] MEDS: MoRPHine SULFATE 4 MG/ML 1 ML CARP\\VIAL IV PRN ×2 (17:10→19:36)
[2017-05-08] MEDS ORDERED: CEFEPIME IV 1,000 MG in DEXTROSE 5% 100ML 100 ML IV STA (17:25)
--- NOTE | 2017-05-08 17:25 | Progress Note ---
Progress Note Date of Service May 08, 2017. Progress Note Please note that the following test has been ordered to screen her for any fungal infection B galactomannan Fungitell Also blood cultures were ordered [address] Benson thinks the patient needs to go to tertiary facility giving her significant involvement of mastoid and middle ear
[2017-05-08] MEDS ORDERED: VANCOMYCIN HCL 250 MG/5 ML SOLN PO STA (17:51)
[2017-05-08 18:04] VITALS: O2SAT 92
[2017-05-08 20:40] VITALS: BP 122/56; PULSE 92; O2SAT 96
== END 2017-05-08 20:41 | disposition short-term general hospital (02) ==
LOC: C.EDB 09:49
DX: H70.92 Unspecified mastoiditis, left ear (principal); H66.42 Suppurative otitis media, unspecified, left ear; R51 Headache; J32.4 Chronic pansinusitis; A04.72 Enterocolitis due to Clostridium difficile, not specified as recurrent; F41.9 Anxiety disorder, unspecified; J45.909 Unspecified asthma, uncomplicated; E11.9 Type 2 diabetes mellitus without complications; M79.7 Fibromyalgia; Z83.3 Family history of diabetes mellitus; Z82.49 Family history of ischemic heart disease and other diseases of the circulatory system; F17.200 Nicotine dependence, unspecified, uncomplicated; F12.90 Cannabis use, unspecified, uncomplicated; Z79.4 Long term (current) use of insulin

== ENCOUNTER 2017-05-10 08:45 | Emergency (ER) | payer OTHER ==
[~2017-05-10] VITALS: Ht 162.6 cm; Wt 105.0 kg
[2017-05-10 08:54] VITALS: TEMP 37.3; Ht 162.6 cm; Wt 105.0 kg
[2017-05-10] MEDS ORDERED: MoRPHine SULFATE 4 MG/ML 1 ML CARP\\VIAL IV STA (09:30)
[2017-05-10] MEDS ORDERED: ONDANSETRON INJ 2 MG/ML 2 ML VIAL IV STA (09:30)
[2017-05-10] MEDS ORDERED: SODIUM CHLORIDE 0.9% 1000ML 1,000 ML IV STA (09:30)
--- NOTE | 2017-05-10 09:36 | EMERGENCY ROOM VISIT NOTE ---
History Report prepared by Brady: Amol Tijerina Under the Supervision of: Dr. Denice Sifuentes M.D. 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 The patient was recently seen for right ear and head pain. She was diagnosed with Mastoiditis. She notes that her left ear was drained at [facility]. She notes fever. She states that she was discharged from [facility] yesterday. She notes that she has had this headache while at [facility] and she was treated with Morphine. She denies any pain while moving her eyes. She notes the head pain is not like a migraine. She currently rates her pain a 10/10 in severity. The patient is not taking any steroids or antibiotics. She denies any abdominal pain or neck pain. 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 Review of Systems See HPI for pertinent positives & negatives. A total of 10 systems reviewed and were otherwise negative. Past Medical & Surgical Medical Problems: (1) Anxiety (2) Appendectomy (3) Asthma (4) Bilateral inguinal hernia repair (5) Cholecystitis (6) Diabetes mellitus type 2 (7) fibromyalgia (8) History of - tubal ligation (9) Left total knee revision in 03/09 (10) presyncope (11) seasonal allergies Family History Cancer Colon cancer Diabetes mellitus Gallbladder disease Heart disease Hypertension Lung disease Social History Smoking Status: Current Every Day Smoker Alcohol Use: none Drug Use: marijuana Marital Status: Housing Status: lives with family Occupation Status: unemployed Current/Historical Medications Scheduled Atorvastatin (Lipitor), 40 MG PO HS Calcium Carbonate-Vitamin D (Calcium), 1 TAB PO DAILY Cetirizine (Zyrtec), 10 MG PO QAM Cholecalciferol (Vitamin D3), 2,000 INTER.UNIT PO DAILY Cinnamon (Cinnamon), 500 MG PO DAILY Duloxetine HCl (Duloxetine HCl), 60 MG PO DAILY Fluticasone Prop/Salmeterol (Advair Diskus 500/50 60 Dose), 1 PUFF INH BID Glimepiride (Glimepiride), 4 MG PO QAM Insulin Aspart (Novolog Flexpen), SQ AC Insulin Glargine (Lantus Solostar), 50 UNITS SC QPM Krill Oil (Krill Oil), 1 CAP PO DAILY Magnesium Oxide (Mag-Ox), 400 MG PO DAILY Metformin HCl (Metformin HCl), 500 MG PO BID Milk Thistle Seed (Bulk) (Milk Thistle), 1 DOSE PO DAILY Multivitamin (Multivitamin), 1 TAB PO DAILY Omeprazole (Prilosec), 40 MG PO DAILY Turmeric (Curcuma Longa) (Turmeric), 500 MG PO BID Scheduled PRN Albuterol Hfa (Ventolin Hfa), 2 PUFFS INH Q6H PRN for Shortness of Breath Albuterol Sulfate (Albuterol Sulfate), 1 VIAL INH Q4H PRN for SOB/Wheezing Baclofen (Baclofen), 10 MG PO BID PRN for Muscle Spasm Fluticasone Propionate (Fluticasone Propionate), 2 SPRAYS DANIKA DAILY PRN for Allergy Symptoms Hydrocodone/Acetaminophen 10MG/325MG ([place] 10MG/325MG), 1 TAB PO Q6H PRN for Pain Lorazepam (Lorazepam), 1 MG PO TID PRN for Anxiety Ondasetron Odt (Zofran Odt), 4 MG SL Q6H PRN for Nausea Allergies Coded Allergies: Pregabalin (Unverified Allergy, Intermediate, HIVES, 05/10/17) Amoxicillin (Verified Allergy, Mild, RASH, 05/10/17) Benzonatate (Verified Allergy, Mild, RASH, 05/10/17) Clavulanic Acid (Unverified Allergy, Unknown, RASH, 05/10/17) DO NOT PRESRIBE ANYTHING WITH AMOXICILLIN IN IT Clindamycin (Verified Adverse Reaction, Severe, GI UPSET, 05/10/17) Doxycycline (Verified Adverse Reaction, Severe, VOMIT, 05/10/17) Tetracycline (Verified Adverse Reaction, Severe, VOMIT, 05/10/17) NSAIDs (Verified Adverse Reaction, Intermediate, nausea, 05/10/17) Hydromorphone (Verified Adverse Reaction, Unknown, severe headache, 05/10/17 ) Physical Exam Vital Signs Date Time Temp Pulse Resp B/P (MAP) Pulse Ox O2 Delivery O2 Flow Rate FiO2 1/8/18 12:26 99 21 114/79 98 Room Air 05/10/17 11:05 82 16 105/78 98 Room Air 05/10/17 09:44 92 05/10/17 08:54 37.3 99 18 129/74 93 Room Air Physical Exam Vital signs reviewed. General: Dishevelled-appearing in some discomfort. Smells of tobacco. Periodically grabbing right side of head. HEENT: No scleral icterus, PERRLA, neck supple. Atraumatic. No meningeal signs. Left TM has a small area of hemorrhage, no active bleeding. Right TM is clear. Cardiovascular: Regular rate and rhythm, no extra sounds. Pulmonary: Clear to auscultation bilaterally, normal work of breathing. Abdomen: Soft, nontender, nondistended, positive bowel sounds. Musculoskeletal: Atraumatic, no peripheral edema. Neurologic: Patient awake alert and oriented x 3, full strength in all 4 extremities. Cranial nerves 2 through 12 grossly intact. Skin: Warm, dry, no rash Medical Decision & Procedures Laboratory Results 05/10/17 09:45 Red Blood Count 4.57, Mean Corpuscular Volume 84.5, Mean Corpuscular Hemoglobin 29.1, Mean Corpuscular Hemoglobin Concent 34.5, Mean Platelet Volume 9.2, Neutrophils (%) (Auto) 68.3, Lymphocytes (%) (Auto) 22.7, Monocytes (%) (Auto) 6.6, Eosinophils (%) (Auto) 1.6, Basophils (%) (Auto) 0.5, Neutrophils # (Auto) 6.70, Lymphocytes # (Auto) 2.23, Monocytes # (Auto) 0.65, Eosinophils # (Auto) 0.16, Basophils # (Auto) 0.05 05/10/17 09:45 Test 05/10/17 09:45 White Blood Count 9.82 K/uL (4.8-10.8) Red Blood Count 4.57 M/uL (4.2-5.4) Hemoglobin 13.3 g/dL (12.0-16.0) Hematocrit 38.6 % (37-47) Mean Corpuscular Volume 84.5 fL (80-100) Mean Corpuscular Hemoglobin 29.1 pg (25-34) Mean Corpuscular Hemoglobin Concent 34.5 g/dl (32-36) Platelet Count 252 K/uL (130-400) Mean Platelet Volume 9.2 fL (7.4-10.4) Neutrophils (%) (Auto) 68.3 % Lymphocytes (%) (Auto) 22.7 % Monocytes (%) (Auto) 6.6 % Eosinophils (%) (Auto) 1.6 % Basophils (%) (Auto) 0.5 % Neutrophils # (Auto) 6.70 K/uL (1.4-6.5) Lymphocytes # (Auto) 2.23 K/uL (1.2-3.4) Monocytes # (Auto) 0.65 K/uL (0.11-0.59) Eosinophils # (Auto) 0.16 K/uL (0-0.5) Basophils # (Auto) 0.05 K/uL (0-0.2) RDW Standard Deviation 44.1 fL (36.4-46.3) RDW Coefficient of Variation 14.3 % (11.5-14.5) Immature Granulocyte % (Auto) 0.3 % Immature Granulocyte # (Auto) 0.03 K/uL (0.00-0.02) Anion Gap 9.0 mmol/L (3-11) Est Creatinine Clear Calc Drug Dose 116.9 ml/min Estimated GFR () 116.7 Estimated GFR (Non- 100.7 BUN/Creatinine Ratio 7.1 (10-20) Calcium Level 8.8 mg/dl (8.5-10.1) Total Bilirubin 0.4 mg/dl (0.2-1) Direct Bilirubin < 0.1 mg/dl (0-0.2) Aspartate Amino Transf (AST/SGOT) 15 U/L (15-37) Alanine Aminotransferase (ALT/SGPT) 25 U/L (12-78) Alkaline Phosphatase 102 U/L (45-117) Total Protein 7.6 gm/dl (6.4-8.2) Albumin 3.0 gm/dl (3.4-5.0) Beta-Hydroxybutyric Acid 0.97 mg/dL (0.2-2.81) Laboratory results per my review. Medications Administered Medications (Trade) Dose Ordered Sig/Darrell Route Start Time Stop Time Status Last Admin Dose Admin Morphine Sulfate (MoRPHine SULFATE INJ) 4 mg NOW STAT IV 05/10/17 09:30 05/10/17 09:33 DC 05/10/17 09:49 4 MG Ondansetron HCl (Zofran Inj) 4 mg NOW STAT IV 05/10/17 09:30 05/10/17 09:33 DC 05/10/17 09:49 4 MG Sodium Chloride 1,000 ml @ 999 mls/hr Q1H1M STAT IV 05/10/17 09:30 05/10/17 10:30 DC 05/10/17 09:49 999 MLS/HR Ketorolac Tromethamine (Toradol Inj) 30 mg NOW STAT IV 05/10/17 12:12 05/10/17 12:13 DC 05/10/17 12:27 30 MG Al Hydroxide/Mg Hydroxide (Maalox Susp) 30 ml STK-MED ONCE .ROUTE 05/10/17 12:24 05/10/17 12:25 DC 05/10/17 12:27 30 ML Lidocaine HCl (Viscous Lidocaine 2% Soln) 20 ml STK-MED ONCE .ROUTE 05/10/17 12:24 05/10/17 12:25 DC 05/10/17 12:27 20 ML Insulin Human Regular (novoLIN-R U-100 PER UNIT) 10 units NOW STAT SC 05/10/17 12:41 05/10/17 12:42 DC 05/10/17 13:03 10 UNITS ED Course 0927: Past medical records reviewed. The patient was evaluated in room A9B. A complete history and physical examination was performed. 0930: Ordered Sodium Chloride 1,000 ml @ 999 mls/hr IV, Zofran 4 mg IV, and Morphine Sulfate 4 mg IV 1212: Ordered Toradol 30 mg IV 1224: Ordered Lidocaine HCl 20 ml PO and Maalox 30 ml PO 1241: Insulin Human Regular 10 units SC 1243: I reassessed the patient at this time. She is feeling better and resting comfortably. I discussed the results and treatment plan with the patient. I answered all pertaining questions that she had. She expressed understanding and verbalized agreement. The patient will be discharged home. Medical Decision Differential Diagnoses: Intracranial hemorrhage, intracranial mass, migraine headache, tension headache , sinusitis, meningitis This patient was evaluated and appeared to be in some discomfort. IV access was obtained and laboratory work was drawn. Patient was given IV morphine and Zofran. She was hydrated with normal saline solution. Records were obtained from [facility] where the patient was discharged yesterday. The patient has no signs of meningitis today and had a clear LP 2 days ago. The etiology of the contralateral headache is unclear but does seem neuropathic in nature. The patient's blood glucose has been difficult to manage. Her blood sugar is 300 today, she was given 10 units of subcutaneous regular insulin. The patient did request additional narcotics. A review of the PDMP reveals multiple narcotic and Ativan prescriptions. She was given IV Toradol with a GI cocktail at her request. The patient was discharged and asked to initiate the antibiotics as prescribed by ENT. The patient will monitor her glucose carefully at home. Patient was advised to follow-up with neurology and/or pain management if symptoms continue. She will return to the ER for worsening of symptoms or any medical concerns. [place] Drug Monitoring Program Search Results: patient reviewed within database (28 prescriptions between 6 providers) Medication Reconcilliation Current Medication List: was personally reviewed by me Blood Pressure Screening Patient's blood pressure: Normal blood pressure Impression Primary Impression: Cranial neuralgia Additional Impression: Hyperglycemia Scribe Attestation The scribe's documentation has been prepared under my direction and personally reviewed by me in its entirety. I confirm that the note above accurately reflects all work, treatment, procedures, and medical decision making performed by me. Departure Information Dispostion Home / Self-Care Referrals Israel Nicole M.D. (PCP) Forms HOME CARE DOCUMENTATION FORM, IMPORTANT VISIT INFORMATION Patient Instructions [facility] Additional Instructions Diagnosis: Neuralgia Please continue your medications as prescribed. Start the antibiotic as prescribed by [facility] as soon as possible. Follow-up with your primary care physician within the next week for reevaluation and consideration of further management. Contact the pain management office for evaluation. Return to the ER for worsening of symptoms or any medical concerns. Problem Qualifiers
[2017-05-10 10:03] LABS: BASO % 0.5 %; BASO ABS # 0.05 K/uL (0-0.2); EOS % 1.6 %; EOS ABS # 0.16 K/uL (0-0.5); HEMATOCRIT 38.6 % (37-47); HEMOGLOBIN 13.3 g/dL (12.0-16.0); IG# 0.03 K/uL (0.00-0.02); LYMPH % 22.7 %; LYMPH ABS # 2.23 K/uL (1.2-3.4); MEAN CELL VOLUME 84.5 fL (80-100); MEAN CORPUSCULAR HEMOGLOBIN 29.1 pg (25-34); MEAN CORPUSCULAR HGB CONC 34.5 g/dl (32-36); MEAN PLATELET VOLUME 9.2 fL (7.4-10.4); MONO % 6.6 %; MONO ABS # 0.65 K/uL (0.11-0.59); NEUT % 68.3 %; PLATELET COUNT 252 K/uL (130-400); RED CELL DISTRIBUTION WIDTH CV 14.3 % (11.5-14.5); RED CELL DISTRIBUTION WIDTH SD 44.1 fL (36.4-46.3); WHITE BLOOD COUNT 9.82 K/uL (4.8-10.8)
[2017-05-10 10:20] LABS: ALT/SGPT 25 U/L (12-78); BLOOD UREA NITROGEN 5 mg/dl (7-18); CALCIUM 8.8 mg/dl (8.5-10.1); CARBON DIOXIDE 27 mmol/L (21-32); CREATININE 0.65 mg/dl (0.60-1.20); GLUCOSE 310 mg/dl (70-99); POTASSIUM 3.9 mmol/L (3.5-5.1); SODIUM 135 mmol/L (136-145)
[2017-05-10 10:25] LABS: ALKALINE PHOSPHATASE 102 U/L (45-117); AST/SGOT 15 U/L (15-37); TOTAL PROTEIN 7.6 gm/dl (6.4-8.2)
[2017-05-10] MEDS ORDERED: KETOROLAC TROMETHAMINE 30 MG/ML VIAL IV STA (12:12)
[2017-05-10] MEDS ORDERED: ALUMINUM/MAGNESIUM SUSP 30 ML UDC ONE (12:24)
[2017-05-10] MEDS ORDERED: LIDOCAINE HCL 2% VISC SOLN 20 ML UDC ONE (12:24)
[2017-05-10 12:26] VITALS: BP 114/79; PULSE 99; O2SAT 98
[2017-05-10] MEDS ORDERED: NovoLIN-R INSULIN PER UNIT CHARGE SC STA (12:41)
== END 2017-05-10 13:50 | disposition home or self-care (01) ==
LOC: C.EDB 08:46 → C.EDA 13:50
DX: G52.9 Cranial nerve disorder, unspecified (principal); E11.65 Type 2 diabetes mellitus with hyperglycemia; F41.9 Anxiety disorder, unspecified; J45.909 Unspecified asthma, uncomplicated; M79.7 Fibromyalgia; F17.200 Nicotine dependence, unspecified, uncomplicated; Z79.51 Long term (current) use of inhaled steroids; Z79.4 Long term (current) use of insulin; Z80.0 Family history of malignant neoplasm of digestive organs; Z83.3 Family history of diabetes mellitus; Z83.79 Family history of other diseases of the digestive system; Z82.49 Family history of ischemic heart disease and other diseases of the circulatory system

== ENCOUNTER → 2017-06-10 | Outpatient (CLI) | payer OTHER ==
[~2017-06-10] MED LIST changes: -CEFD300C3 PO; -MDRDP21 PO; -MTR500 PO
--- NOTE | 2017-06-10 15:33 | DIAGNOSTIC IMAGING REPORT ---
MRI OF THE BRAIN WITHOUT IV CONTRAST CLINICAL HISTORY: Chronic migraine headache. COMPARISON STUDY: CT of the brain dated 05/08/2017. TECHNIQUE: MRI of the brain was performed utilizing various T1 and T2-weighted sequences in the axial, sagittal, and coronal planes. IV contrast was not administered for this examination. The examination is degraded by motion artifact. FINDINGS: Brain parenchyma: There are scattered tiny foci of subcortical and periventricular microangiopathic change. The brain parenchyma is otherwise normal in appearance. There is no hemorrhage or mass effect. There is no restricted diffusion to suggest acute ischemia. Bianchi-white matter differentiation is preserved. No extra-axial fluid collection is seen. The cerebellar tonsils are normal in configuration. Ventricles, sulci, and cisterns: Normal in configuration. Pituitary and sella: Partially empty sella is incidentally noted. Intracranial vasculature: Normal flow voids are maintained at the skull base. Orbits: The bony orbits are grossly intact. Orbital contents are normal in appearance. Sinuses and mastoids: There is a large left mastoid effusion. The right mastoid air cells are clear. Mild mucosal thickening is seen in the left maxillary antrum. The remaining paranasal sinuses are clear. Calvarium: Unremarkable. Cervical cord: Partially visualized cervical spinal cord is normal in morphology and signal intensity. IMPRESSION: 1. No acute intracranial abnormality. 2. Large left mastoid effusion. Electronically signed by: Sameer Steinberg M.D. 06/10/2017 3:32 PM Dictated Date/Time: 06/10/2017 3:29 PM
--- NOTE | 2017-06-10 15:55 | DIAGNOSTIC IMAGING REPORT ---
CERVICAL WITHOUT CONTRAST CLINICAL HISTORY: 52 years-old Female presenting with M54.2 Chronic neck pain, chronic migraines. TECHNIQUE: Multisequence, multiplanar MR imaging of the cervical spine was performed without the use of intravenous contrast. IV contrast: None. COMPARISON: None. FINDINGS: Localizer images: Unremarkable. Image quality is degraded by motion artifact on several sequences slightly limiting diagnostic sensitivity. Normal cervical lordosis. Vertebral bodies maintain normal height, alignment, and bone marrow signal intensity. Intervertebral discs demonstrate mild diffuse desiccation with minimal disc osteophyte complexes noted at C5-6 and C6-7. At these levels there is mild effacement of the ventral thecal sac greatest at C6-7. At this level there is also slight posterior effacement of the thecal sac secondary to ligamentum flavum hypertrophy. At this level there is also suggestion of uncovertebral hypertrophy greater on the left with resultant mild left neural foraminal narrowing. The cervical spinal cord maintains normal morphology and signal intensity. Craniocervical junction normal. Paraspinal soft tissues within normal limits. Slight prominence of palatine tonsillar adenoidal tissue. Scattered subcentimeter cervical lymph nodes, nonspecific and likely reactive. IMPRESSION: 1. Mild degenerative change in the lower cervical spine with mild circumferential spinal canal narrowing at C6-7. No abnormal spinal cord signal or morphology to suggest impingement. 2. Mild left neural foraminal narrowing at C6-7. 3. The examination was slightly degraded by motion artifact, which limits diagnostic sensitivity. Electronically signed by: Franck Guerra M.D. 06/10/2017 3:53 PM Dictated Date/Time: 06/10/2017 3:44 PM
== END | disposition home or self-care (01) ==
LOC: C.MRIBC 13:53
PROVIDERS: ATTEND Psychiatry & Neurology Neurology
DX: G43.709 Chronic migraine without aura, not intractable, without status migrainosus (principal); M54.2 Cervicalgia; R51 Headache; H74.8X2 Other specified disorders of left middle ear and mastoid; M47.812 Spondylosis without myelopathy or radiculopathy, cervical region; M48.02 Spinal stenosis, cervical region

== ENCOUNTER → 2017-06-15 | Outpatient (CLI) | payer OTHER ==
--- NOTE | 2017-06-15 10:26 | DIAGNOSTIC IMAGING REPORT ---
MRCP CLINICAL HISTORY: Right upper quadrant abdominal pain. History of C. Difficile infection. COMPARISON STUDY: CT of the abdomen and pelvis April 11, 2017. TECHNIQUE: Utilizing a 1.5 [place]ah magnet and dedicated coil, multiplanar, multiecho imaging of the abdomen was performed utilizing heavily T2 weighted pulsing sequences. No intravenous contrast was administered. FINDINGS: There is no intra or extrahepatic biliary ductal dilatation. No filling defects are identified within the common bile duct. The course and caliber of the main pancreatic duct is normal. Unenhanced images of the liver, spleen, adrenal glands, kidneys and pancreas are normal. There is no peripancreatic infiltration or fluid. No abdominal lymphadenopathy or ascites is noted. The gallbladder is surgically absent. There is no hydronephrosis. A 4 mm cyst within the upper pole of the right kidney is noted. IMPRESSION: Unremarkable MRCP status post cholecystectomy. No biliary ductal dilatation. No choledocholithiasis. Electronically signed by: Nagi Rosa M.D. 06/15/2017 10:25 AM Dictated Date/Time: 06/15/2017 10:18 AM
== END | disposition home or self-care (01) ==
LOC: C.MRI 09:01
PROVIDERS: ATTEND Internal Medicine Gastroenterology
DX: R10.9 Unspecified abdominal pain (principal); Z86.19 Personal history of other infectious and parasitic diseases

== ENCOUNTER 2017-07-28 17:05 | Emergency (ER) | payer OTHER ==
[~2017-07-28] VITALS: Ht 162.6 cm; Wt 102.0 kg
[~2017-07-28 17:05] MED LIST changes: -INSDGIPEN SC; +INSU100I23 SQ
[2017-07-28 17:16] VITALS: BP 144/84; PULSE 107; TEMP 36.7; O2SAT 96; Ht 162.6 cm; Wt 102.0 kg
[2017-07-28] MEDS ORDERED: ALUMINUM/MAGNESIUM SUSP 30 ML UDC ONE (19:07)
[2017-07-28] MEDS ORDERED: LIDOCAINE HCL 2% VISC SOLN 20 ML UDC ONE (19:07)
[2017-07-28 19:16] LABS: HEMATOCRIT 41.7 % (37-47); HEMOGLOBIN 14.8 g/dL (12.0-16.0); MEAN CELL VOLUME 81.9 fL (80-100); MEAN CORPUSCULAR HEMOGLOBIN 29.1 pg (25-34); MEAN CORPUSCULAR HGB CONC 35.5 g/dl (32-36); MEAN PLATELET VOLUME 8.9 fL (7.4-10.4); PLATELET COUNT 280 K/uL (130-400); RED CELL DISTRIBUTION WIDTH CV 14.7 % (11.5-14.5); RED CELL DISTRIBUTION WIDTH SD 43.7 fL (36.4-46.3); WHITE BLOOD COUNT 14.48 K/uL (4.8-10.8)
[2017-07-28 19:47] LABS: ALBUMIN 3.5 gm/dl (3.4-5.0); ALT/SGPT 21 U/L (12-78); AST/SGOT 13 U/L (15-37); BLOOD UREA NITROGEN 13 mg/dl (7-18); CALCIUM 9.1 mg/dl (8.5-10.1); CARBON DIOXIDE 24 mmol/L (21-32); CREATININE 0.72 mg/dl (0.60-1.20); GLUCOSE 273 mg/dl (70-99); LIPASE 132 U/L (73-393); POTASSIUM 4.3 mmol/L (3.5-5.1); SODIUM 133 mmol/L (136-145)
[2017-07-28 19:52] LABS: ALKALINE PHOSPHATASE 85 U/L (45-117); TOTAL PROTEIN 7.6 gm/dl (6.4-8.2)
--- NOTE | 2017-07-28 22:47 | DIAGNOSTIC IMAGING REPORT ---
CHEST ONE VIEW PORTABLE CLINICAL HISTORY: Chest pain. COMPARISON STUDY: Chest radiograph April 29, 2017. FINDINGS: Lung volumes are normal. No pneumothorax or pleural effusion is noted. Apparent left basilar opacity is likely artifactual. There is no evidence for pulmonary edema. Cardiomediastinal silhouette is normal. IMPRESSION: No acute cardiopulmonary findings. Electronically signed by: Nagi Rosa M.D. 07/28/2017 10:45 PM Dictated Date/Time: 07/28/2017 10:45 PM
--- NOTE | 2017-07-29 12:50 | EMERGENCY ROOM VISIT NOTE ---
History First contact with patient: 18:27 Chief Complaint: CARDIAC ASSESSMENT Stated Complaint: CHEST DISCOMFORT, EXTREME TIREDNESS, WEAK FEELING Nursing Triage Summary: patient reports ongoing cough, states "I'm on prednisone for that, and I am just more and more tired, with this discomfort in my chest." History of Present Illness The patient is a 52 year old female who presents to the Emergency Room with complaints of 1 week of intermittent fatigue, chest pain, shortness of breath and sweating. Patient was seen by her physician earlier for the symptoms and diagnosed with bronchitis. She is currently on a prednisone taper. She feels the prednisone has helped the cough. She describes a 7/10 central chest pain. The pain is reproducible with palpation and certain movements. There has been no rash. No pain radiation. The pain is not exertional. The patient states that this evening, the pain seemed slightly more severe, she became slightly anxious and was concerned that this could be her heart, she presents for evaluation. Of note, she has no known coronary disease. The patient does believe she has had intermittent fevers, she is not currently febrile though. She states that she does have fibromyalgia and she states that this may be a fibromyalgia flare. She has not had vomiting or diarrhea, no real urinary complaints. No abdominal pain. She does have reflux but states that her chest pain feels different than her typical reflux pain. Review of Systems ROS: Please see HPI. At least 10 systems in total were reviewed and otherwise negative. Past Medical/Surgical History Medical Problems: (1) Anxiety (2) Appendectomy (3) Asthma (4) Bilateral inguinal hernia repair (5) Cholecystitis (6) Diabetes mellitus type 2 (7) fibromyalgia (8) History of - tubal ligation (9) Left total knee revision in 03/09 (10) presyncope (11) seasonal allergies Family History Cancer Colon cancer Diabetes mellitus Gallbladder disease Heart disease Hypertension Lung disease Social History Smoking Status: Current Every Day Smoker Alcohol Use: none Drug Use: marijuana Marital Status: Housing Status: lives with family Occupation Status: unemployed Current/Historical Medications Scheduled Atorvastatin (Lipitor), 40 MG PO HS Calcium Carbonate-Vitamin D (Calcium), 1 TAB PO DAILY Cetirizine (Zyrtec), 10 MG PO QAM Cholecalciferol (Vitamin D3), 2,000 INTER.UNIT PO DAILY Cinnamon (Cinnamon), 500 MG PO DAILY Duloxetine HCl (Duloxetine HCl), 60 MG PO DAILY Fluticasone Prop/Salmeterol (Advair Diskus 500/50 60 Dose), 1 PUFF INH BID Glimepiride (Glimepiride), 4 MG PO QAM Insulin Aspart (Novolog Flexpen), SQ AC Insulin Glargine (Basaglar Kwikpen), 50 UNITS SQ HS Krill Oil (Krill Oil), 1 CAP PO DAILY Magnesium Oxide (Mag-Ox), 400 MG PO DAILY Metformin HCl (Metformin HCl), 500 MG PO BID Milk Thistle Seed (Bulk) (Milk Thistle), 1 DOSE PO DAILY Multivitamin (Multivitamin), 1 TAB PO DAILY Omeprazole (Prilosec), 40 MG PO DAILY Turmeric (Curcuma Longa) (Turmeric), 500 MG PO BID Scheduled PRN Albuterol Hfa (Ventolin Hfa), 2 PUFFS INH Q6H PRN for Shortness of Breath Albuterol Sulfate (Albuterol Sulfate), 1 VIAL INH Q4H PRN for SOB/Wheezing Baclofen (Baclofen), 10 MG PO BID PRN for Muscle Spasm Fluticasone Propionate (Fluticasone Propionate), 2 SPRAYS DANIKA DAILY PRN for Allergy Symptoms Hydrocodone/Acetaminophen 10MG/325MG ([place] 10MG/325MG), 1 TAB PO Q6H PRN for Pain Lorazepam (Lorazepam), 1 MG PO TID PRN for Anxiety Ondasetron Odt (Zofran Odt), 4 MG SL Q6H PRN for Nausea Physical Exam Vital Signs Date Time Temp Pulse Resp B/P (MAP) Pulse Ox O2 Delivery O2 Flow Rate FiO2 07/28/17 17:16 36.7 107 20 144/84 96 Room Air Physical Exam GENERAL: Patient is in no acute distress. HEENT: No acute trauma, normocephalic atraumatic, mucous membranes moist, no nasal congestion, no scleral icterus. NECK: No stridor, no adenopathy, no meningismus, trachea is midline. LUNGS: Clear to auscultation bilaterally, no wheeze, no rhonchi, breath sounds equal. Chest: She is tender over the central chest with palpation, no rash. HEART: Without murmurs gallops or rubs, regular rate and rhythm. ABDOMEN: Soft, mildly tender in the epigastrium, bowel sounds positive, no hernias, no peritonitis. EXTREMITIES: No cyanosis or edema, full range of motion of all the joints without pain or difficulty, no signs for acute trauma. NEUROLOGIC: Oriented x 3, no acute motor or sensory deficits, no focal weakness. SKIN: No rash, no jaundice, no diaphoresis. Medical Decision & Procedures ER Provider Diagnostic Interpretation: Chest film per my interpretation does not show evidence for pneumonia or pneumothorax, there was no CHF, no free air. Laboratory Results 07/28/17 19:00 07/28/17 19:00 Test 07/28/17 19:00 Red Blood Count 5.09 M/uL (4.2-5.4) Mean Corpuscular Volume 81.9 fL (80-100) Mean Corpuscular Hemoglobin 29.1 pg (25-34) Mean Corpuscular Hemoglobin Concent 35.5 g/dl (32-36) RDW Standard Deviation 43.7 fL (36.4-46.3) RDW Coefficient of Variation 14.7 % (11.5-14.5) Mean Platelet Volume 8.9 fL (7.4-10.4) Anion Gap 8.0 mmol/L (3-11) Estimated GFR () 110.0 Estimated GFR (Non- 94.9 BUN/Creatinine Ratio 18.1 (10-20) Calcium Level 9.1 mg/dl (8.5-10.1) Total Bilirubin 0.5 mg/dl (0.2-1) Direct Bilirubin 0.1 mg/dl (0-0.2) Aspartate Amino Transf (AST/SGOT) 13 U/L (15-37) Alanine Aminotransferase (ALT/SGPT) 21 U/L (12-78) Alkaline Phosphatase 85 U/L (45-117) Troponin I < 0.015 ng/ml (0-0.045) Total Protein 7.6 gm/dl (6.4-8.2) Albumin 3.5 gm/dl (3.4-5.0) Lipase 132 U/L (73-393) Medications Administered Patient received an oral GI cocktail. ECG Per My Interpretation Indication: chest pain Rate (beats per minute): 91 Rhythm: normal sinus Findings: no acute ischemic change, no ectopy, other (No ST elevation or PVCs.) Medical Decision Patient presents with cough, chest pain and fatigue. Differential diagnosis includes bronchitis or pneumonia, CHF, pneumothorax, cardiac ischemia, MA, anemia, electrolyte imbalance, musculoskeletal pain, PE or aortic dissection. There is a mild leukocytosis at 14,000, this is likely consistent with her prednisone use. No worrisome anemia. No significant electrolyte abnormality, kidney failure or hepatitis. Of note, her sugar was over 200 but she states this has been the case since being on steroids and when she takes steroids, this typically happens. There was no evidence for hepatitis or pancreatitis. EKG showed a normal sinus rhythm, no acute ischemia. Cardiac enzyme testing 1 is not consistent with acute cardiac injury. Chest film does not show pneumonia, pneumothorax or mediastinal widening. The patient was given a GI cocktail, this really did not give her much relief. She continued to have reproducible central chest pain. Patient's workup is benign. I suspect the pain is musculoskeletal, there may be a component of reflux here as well. Patient is being discharged with heat to the chest wall, she will start Zantac on top of her proton pump inhibitor. Tylenol for pain. She can follow with her doctors office. She was reassured by her workup. Medication Reconcilliation Current Medication List: was personally reviewed by me Blood Pressure Screening Patient's blood pressure: Elevated blood pressure Blood pressure disposition: Elevated BP felt to be situational Impression Primary Impression: Anterior chest wall pain Additional Impression: Acute bronchitis Departure Information Dispostion Home / Self-Care Condition GOOD Referrals Israel Nicole M.D. (PCP) Forms IMPORTANT VISIT INFORMATION Patient Instructions [facility] Problem Qualifiers
== END 2017-07-28 20:59 | disposition home or self-care (01) ==
LOC: C.EDB 17:07
DX: R07.89 Other chest pain (principal); J20.9 Acute bronchitis, unspecified; M79.7 Fibromyalgia; E11.9 Type 2 diabetes mellitus without complications; F41.9 Anxiety disorder, unspecified; K21.9 Gastro-esophageal reflux disease without esophagitis; J45.909 Unspecified asthma, uncomplicated; Z79.4 Long term (current) use of insulin; Z79.899 Other long term (current) drug therapy; F17.200 Nicotine dependence, unspecified, uncomplicated; Z80.0 Family history of malignant neoplasm of digestive organs; Z82.49 Family history of ischemic heart disease and other diseases of the circulatory system; Z83.3 Family history of diabetes mellitus; Z83.6 Family history of other diseases of the respiratory system; Z83.79 Family history of other diseases of the digestive system

== ENCOUNTER 2017-08-08 09:52 | Emergency (ER) | payer OTHER ==
[~2017-08-08] VITALS: Ht 162.6 cm; Wt 103.2 kg
[2017-08-08 09:57] VITALS: BP 126/79; PULSE 95; TEMP 36.7; O2SAT 97; Ht 162.6 cm; Wt 103.2 kg
[2017-08-08] MEDS ORDERED: ACETAMINOPHEN 500 MG TAB PO STA (10:10)
--- NOTE | 2017-08-08 10:12 | EMERGENCY ROOM VISIT NOTE ---
History Report prepared by Carolibpj: Rea Muhammad Under the Supervision of: Dr. Sameer Zhou M.D. First contact with patient: 10:01 Chief Complaint: FACIAL PAIN/INJURY Stated Complaint: LEFT FACIAL PAIN,COUGH History of Present Illness The patient is a 52 year old female who presents to the Emergency Room with complaints of worsening left sided facial pain and swelling for the past 24 hours. She states the pain and swelling started yesterday, but really worsened upon waking this morning. She rates her discomfort as a 6/10 in severity. The pain is worse at her left upper 1st bicuspid. She has been sleeping in an elevated position in a recliner for comfort. The patient reports she needs to have several teeth removed and is saving up money for dentures. She has a history of multiple previous root canals. She also complains of increased fatigue for the past day and notes she slept for most of the day yesterday. The patient states her reported allergy to Clindamycin is "not a true allergy" as she experiences increased GERD when taking it. Source of History: patient Onset: 24 hours HAND BUFFER Position: teeth (left sided teeth) Symptom Intensity: 6/10 Timing: worsening Associated Symptoms: + cough, + fatigue Review of Systems See HPI for pertinent positives & negatives. A total of 10 systems reviewed and were otherwise negative. Past Medical & Surgical Medical Problems: (1) Anxiety (2) Appendectomy (3) Asthma (4) Bilateral inguinal hernia repair (5) Cholecystitis (6) Diabetes mellitus type 2 (7) fibromyalgia (8) History of - tubal ligation (9) Left total knee revision in 03/09 (10) presyncope (11) seasonal allergies Family History Cancer Colon cancer Diabetes mellitus Gallbladder disease Heart disease Hypertension Lung disease Social History Smoking Status: Current Every Day Smoker Alcohol Use: none Drug Use: marijuana Marital Status: Housing Status: lives with family Occupation Status: unemployed Current/Historical Medications Scheduled Atorvastatin (Lipitor), 40 MG PO HS Calcium Carbonate-Vitamin D (Calcium), 1 TAB PO DAILY Cetirizine (Zyrtec), 10 MG PO QAM Cholecalciferol (Vitamin D3), 2,000 INTER.UNIT PO DAILY Cinnamon (Cinnamon), 500 MG PO DAILY Clindamycin Hcl (Cleocin), 300 MG PO TID Duloxetine HCl (Duloxetine HCl), 60 MG PO DAILY Fluticasone Prop/Salmeterol (Advair Diskus 500/50 60 Dose), 1 PUFF INH BID Glimepiride (Glimepiride), 4 MG PO QAM Insulin Aspart (Novolog Flexpen), SQ AC Insulin Glargine (Basaglar Kwikpen), 50 UNITS SQ HS Krill Oil (Krill Oil), 1 CAP PO DAILY Magnesium Oxide (Mag-Ox), 400 MG PO DAILY Metformin HCl (Metformin HCl), 500 MG PO BID Milk Thistle Seed (Bulk) (Milk Thistle), 1 DOSE PO DAILY Multivitamin (Multivitamin), 1 TAB PO DAILY Omeprazole (Prilosec), 40 MG PO DAILY Sucralfate (Carafate), 10 ML PO TID Turmeric (Curcuma Longa) (Turmeric), 500 MG PO BID Scheduled PRN Albuterol Hfa (Ventolin Hfa), 2 PUFFS INH Q6H PRN for Shortness of Breath Albuterol Sulfate (Albuterol Sulfate), 1 VIAL INH Q4H PRN for SOB/Wheezing Baclofen (Baclofen), 10 MG PO BID PRN for Muscle Spasm Fluticasone Propionate (Fluticasone Propionate), 2 SPRAYS DANIKA DAILY PRN for Allergy Symptoms Hydrocodone/Acetaminophen 10MG/325MG ([place] 10MG/325MG), 1 TAB PO Q6H PRN for Pain Lorazepam (Lorazepam), 1 MG PO TID PRN for Anxiety Ondasetron Odt (Zofran Odt), 4 MG SL Q6H PRN for Nausea Allergies Coded Allergies: Pregabalin (Unverified Allergy, Intermediate, HIVES, 05/10/17) Amoxicillin (Verified Allergy, Mild, RASH, 05/10/17) Benzonatate (Verified Allergy, Mild, RASH, 05/10/17) Clavulanic Acid (Unverified Allergy, Unknown, RASH, 05/10/17) DO NOT PRESRIBE ANYTHING WITH AMOXICILLIN IN IT Clindamycin (Verified Adverse Reaction, Severe, GI UPSET, 05/10/17) Doxycycline (Verified Adverse Reaction, Severe, VOMIT, 05/10/17) Tetracycline (Verified Adverse Reaction, Severe, VOMIT, 05/10/17) NSAIDs (Verified Adverse Reaction, Intermediate, nausea, 05/10/17) Hydromorphone (Verified Adverse Reaction, Unknown, severe headache, 05/10/17 ) Physical Exam Vital Signs Date Time Temp Pulse Resp B/P (MAP) Pulse Ox O2 Delivery O2 Flow Rate FiO2 08/08/17 09:57 36.7 95 16 126/79 97 Room Air Physical Exam GENERAL: Patient is in no acute distress. HEENT: Subtle swelling to the left maxillary face, with a scaly area of dry skin in the same region. No drainage, no warmth, mucous membranes are moist, no pharyngitis, poor dentition, left upper 1st bicuspid has eroded to the gumline and there is tenderness at the gumline in this area, some slight edema is noted. NECK: No stridor, no adenopathy, no meningismus, trachea is midline. LUNGS: Clear to auscultation bilaterally, no wheeze, no rhonchi, breath sounds equal. HEART: Without murmurs gallops or rubs, regular rate and rhythm. ABDOMEN: Soft, nontender, bowel sounds positive, no hernias, no peritonitis. EXTREMITIES: No cyanosis or edema, full range of motion of all the joints without pain or difficulty, no signs for acute trauma. NEUROLOGIC: Oriented x 3, no acute motor or sensory deficits, no focal weakness. SKIN: No rash, no jaundice, no diaphoresis. Medical Decision & Procedures Medications Administered Medications (Trade) Dose Ordered Sig/Darrell Route Start Time Stop Time Status Last Admin Dose Admin Acetaminophen (Tylenol Tab) 1,000 mg NOW STAT PO 08/08/17 10:10 08/08/17 10:12 DC 08/08/17 10:22 1,000 MG Clindamycin HCl (Cleocin Cap) 300 mg ONE ONCE PO 08/08/17 10:15 08/08/17 10:16 DC 08/08/17 10:22 300 MG ED Course 1004: The patient was evaluated in room C8. A complete history and physical exam was performed. 1010: Acetaminophen 1000 mg PO. 1015: Cleocin 300 mg PO. 1015: I reevaluated the patient. She is feeling well and is ready to go home. I discussed her discharge instructions and she verbalized complete understanding and agreement. Medical Decision The differential diagnoses considered include cellulitis, dental infection, Samm's angina, pharyngitis and Herpes Zoster. The patient presents with some left facial swelling and pain. There is no true cellulitis on exam, there is an area of dry skin but I do not think this is the source of her trouble. She does have tenderness at the gumline at the first left upper bicuspid and this tooth has been eroded to the gumline. I think she has a dental infection. There is no uvular edema, no evidence for swelling to the floor of the mouth. The patient is not febrile or toxic. The patient was given oral clindamycin. She was given oral Tylenol. She will be discharged on the same, if worsening, she can return. Her allergy to clindamycin is heartburn, she asked for a prescription for Carafate, this was provided. Medication Reconcilliation Current Medication List: was personally reviewed by me Blood Pressure Screening Patient's blood pressure: Normal blood pressure Blood pressure disposition: Did not require urgent referral Impression Primary Impression: Dental infection Additional Impression: Facial swelling Scribe Attestation The scribe's documentation has been prepared under my direction and personally reviewed by me in its entirety. I confirm that the note above accurately reflects all work, treatment, procedures, and medical decision making performed by me. Departure Information Dispostion Home / Self-Care Prescriptions Sucralfate (CARAFATE) 1 Gm/10 Ml Shaina 10 ML PO TID for 10 Days, #300 ML Prov: Sameer Zhou M.D. 08/08/17 Clindamycin Hcl (CLEOCIN) 300 Mg Cap 300 MG PO TID for 10 Days, #30 CAP Prov: Sameer Zhou M.D. 08/08/17 Referrals Israel Nicole M.D. (PCP) Patient Instructions [facility] Additional Instructions clindamycin 3x per day for 10 days ice or heat to the area--which ever feels better sleep with the head elevated see dentist sarah use maalox or carafate for heart burn as discussed return for worsening symptoms or fever Problem Qualifiers
[2017-08-08] MEDS ORDERED: CLINDAMYCIN HCL 150 MG CAP PO ONE (10:15)
[2017-08-08] MEDS ORDERED: CRFL PO (10:15)
[2017-08-08] MEDS ORDERED: CLIN300C2 PO (10:15)
== END 2017-08-08 10:27 | disposition home or self-care (01) ==
LOC: C.EDB 09:53 → C.EDC 10:27
DX: K04.7 Periapical abscess without sinus (principal); R51 Headache; M79.7 Fibromyalgia; E11.9 Type 2 diabetes mellitus without complications; F41.9 Anxiety disorder, unspecified; Z79.899 Other long term (current) drug therapy; Z88.0 Allergy status to penicillin; Z88.8 Allergy status to other drugs, medicaments and biological substances; F17.200 Nicotine dependence, unspecified, uncomplicated; Z80.0 Family history of malignant neoplasm of digestive organs; Z82.49 Family history of ischemic heart disease and other diseases of the circulatory system

== ENCOUNTER → 2017-09-03 | Outpatient (CLI) | payer OTHER ==
[2017-09-03 12:35] LABS: HEMOGLOBIN A1C 8.7 % (4.5-5.6)
[2017-09-03 12:40] LABS: ALBUMIN 3.5 gm/dl (3.4-5.0); ALT/SGPT 28 U/L (12-78); AST/SGOT 15 U/L (15-37); BLOOD UREA NITROGEN 8 mg/dl (7-18); CALCIUM 8.9 mg/dl (8.5-10.1); CARBON DIOXIDE 27 mmol/L (21-32); CREATININE 0.68 mg/dl (0.60-1.20); GLUCOSE 178 mg/dl (70-99); POTASSIUM 4.2 mmol/L (3.5-5.1); SODIUM 137 mmol/L (136-145)
[2017-09-03 12:50] LABS: ALKALINE PHOSPHATASE 115 U/L (45-117); TOTAL PROTEIN 7.8 gm/dl (6.4-8.2)
== END | disposition home or self-care (01) ==
LOC: C.LAB1850 10:40
PROVIDERS: ATTEND Physician Assistant
DX: E11.9 Type 2 diabetes mellitus without complications (principal)

== ENCOUNTER → 2017-09-08 | Outpatient (CLI) | payer OTHER ==
[2017-09-08 10:16] LABS: CORTISOL AM*DRAW BETWEEN 7-9AM 20.09 mcg/dl (4.30-22.40); FOLLICLE STIMULAT HORMONE 57.39 IU/L; PROLACTIN 7.16 ng/mL; T3 FREE 3.28 pg/ml (2.30-4.20)
== END | disposition home or self-care (01) ==
LOC: C.LAB1850 08:36
PROVIDERS: ATTEND Physician Assistant
DX: Z78.0 Asymptomatic menopausal state (principal); R53.83 Other fatigue; N83.201 Unspecified ovarian cyst, right side

== ENCOUNTER → 2017-09-15 | Day surgery (SDC) | payer OTHER ==
[2017-09-08 14:10] VITALS: Ht 162.6 cm; Wt 100.0 kg
[~2017-09-15] VITALS: Ht 162.6 cm; Wt 100.0 kg
[~2017-09-15] MED LIST changes: -ALBU0.633 INH; +ALBUT/IPRATROP 3MG/0.5MG NEB 3 ML VIAL INH STA; -CALC-51 PO; -CHOL20007 PO; -CINN1CAP2 PO; -KRIL1000 PO; +LIDOCAINE HCL 2% 2 ML VIAL (20MG/ML) ONE; -MAGN400T6 PO; +MIDAZOLAM HCL 1 MG/ML 2ML VIAL ONE; -MILKPOW PO; -MULT-506 PO; -NVLGI/PEN SQ; +ONDANSETRON INJ 2 MG/ML 2 ML VIAL ONE; +PROPOFOL IV EMULSION 10 MG/ML 20 ML VIAL ONE; -TURM500T PO
--- NOTE | 2017-09-15 13:02 | Endo History and Physical ---
History & Physical Date of Service: September 15, 2017. Chief Complaint: GERD, Fam hx colon cancer Referring Physician: Dr Nicole History of Present Illness For EGD and colonoscopy Past Medical History Diabetes, Arthritis, Gastrointestinal Disorder, Anxiety, Reflux, Cancer, High Cholesterol, COPD, Depression Past Surgical History Hx Cardiac Surgery: No Hx Internal Defibrillator: No Hx Pacemaker: No Hx Abdominal Surgery: Yes (BILATERAL INGUINAL HERNIAS, OPEN APPY, exploratory laparotomy, MEKHI) Hx of Implantable Prosthesis: No Hx Post-Op Nausea and Vomiting: Yes Hx Cancer Surgery: No Hx Thoracic Surgery: No Hx Orthopedic: Yes (LEFT KNEE ARTHOSOPY X 3, LEFT TKA) Hx Urinary Tract Surgery: No Family History Colon CA Social History Smoking Status: Current Every Day Smoker Hx Substance Use: Yes (NORCO DAILY) Hx Alcohol Use: Yes (RARELY) Allergies Coded Allergies: Pregabalin (Unverified Allergy, Intermediate, HIVES, 09/08/17) Amoxicillin (Verified Allergy, Mild, RASH, 09/08/17) Benzonatate (Verified Allergy, Mild, RASH, 09/08/17) Clavulanic Acid (Unverified Allergy, Unknown, RASH, 09/08/17) DO NOT PRESRIBE ANYTHING WITH AMOXICILLIN IN IT Clindamycin (Verified Adverse Reaction, Severe, GI UPSET, 09/08/17) Doxycycline (Verified Adverse Reaction, Severe, VOMIT, 09/08/17) Tetracycline (Verified Adverse Reaction, Severe, VOMIT, 09/08/17) NSAIDs (Verified Adverse Reaction, Intermediate, nausea, 09/08/17) Hydromorphone (Verified Adverse Reaction, Unknown, severe headache, 09/08/17 ) Current Medications Reported Home Medications Medications Dose Route/Sig Max Daily Dose Days Date Category Basaglar Kwikpen (Insulin Glargine) 100 Unit/Ml Inj 50 Units SQ HS 06/25/17 Reported Zofran Odt (Ondansetron HCl) 4 Mg Tab 4 Mg SL Q6H PRN 12/24/16 Reported Fluticasone Propionate 120 Sprays/6000 Mcg Inha 2 Sprays DANIKA DAILY PRN 12/24/16 Reported Lorazepam 1 Mg Tab 1 Mg PO TID PRN 12/24/16 Reported Metformin HCl 500 Mg Tab 500 Mg PO BID 12/24/16 Reported Glimepiride 4 Mg Tab 4 Mg PO QAM 12/24/16 Reported Duloxetine HCl 60 Mg Cap 60 Mg PO DAILY 12/24/16 Reported Advair Diskus 500/50 60 Dose (Fluticasone Prop/Salmeterol) 1 Ea Aerp 1 Puff INH BID 10/17/16 Reported Baclofen 10 Mg Tab 10 Mg PO BID PRN 10/17/16 Reported Ventolin Hfa (Albuterol) 200 Puffs/54008 Mcg Aers 2 Puffs INH Q6H PRN 09/09/16 Reported Prilosec (Omeprazole) 40 Mg Cap 40 Mg PO DAILY 09/09/16 Reported Lipitor (Atorvastatin Calcium) 40 Mg Tab 40 Mg PO HS 12/03/14 Reported [place] 10MG/325MG (Acetaminophen/Hydrocodone Bitart) Tab 1 Tab PO Q6H PRN 09/23/14 Reported Zyrtec (Cetirizine HCl) 10 Mg Tab 10 Mg PO QAM 09/23/14 Reported Vital Signs Weight (Kilograms): 100 Height (Feet): 5 Height (Inches): 4 Physical Exam General Appearance: + obese Respiratory/Chest: Respiratory effort: no dyspnea Cardiovascular: Heart Auscultation: RRR Abdomen: Inspection & Palpation: soft Assessment and Plan GERD, Fam hx colon cancer for EGD and colonoscopy
[2017-09-15 13:10] VITALS: PULSE 97; O2SAT 94
--- NOTE | 2017-09-15 13:51 | Discharge Instructions ---
Endoscopy Patient Instructions Date / Procedure(s) Performed September 15, 2017. Colonoscopy, EGD Allergy Information Coded Allergies: Pregabalin (Unverified Allergy, Intermediate, HIVES, 09/08/17) Amoxicillin (Verified Allergy, Mild, RASH, 09/08/17) Benzonatate (Verified Allergy, Mild, RASH, 09/08/17) Clavulanic Acid (Unverified Allergy, Unknown, RASH, 09/08/17) DO NOT PRESRIBE ANYTHING WITH AMOXICILLIN IN IT Clindamycin (Verified Adverse Reaction, Severe, GI UPSET, 09/08/17) Doxycycline (Verified Adverse Reaction, Severe, VOMIT, 09/08/17) Tetracycline (Verified Adverse Reaction, Severe, VOMIT, 09/08/17) NSAIDs (Verified Adverse Reaction, Intermediate, nausea, 09/08/17) Hydromorphone (Verified Adverse Reaction, Unknown, severe headache, 09/08/17 ) Discharge Date / Findings September 15, 2017. Normal EGD, polyps Medication Instructions Restart Stopped Medication(s): resume meds Reported Home Medications Medications Dose Route/Sig Max Daily Dose Days Date Category Basaglar Kwikpen (Insulin Glargine) 100 Unit/Ml Inj 50 Units SQ HS 06/25/17 Reported Zofran Odt (Ondansetron HCl) 4 Mg Tab 4 Mg SL Q6H PRN 12/24/16 Reported Fluticasone Propionate 120 Sprays/6000 Mcg Inha 2 Sprays DANIKA DAILY PRN 12/24/16 Reported Lorazepam 1 Mg Tab 1 Mg PO TID PRN 12/24/16 Reported Metformin HCl 500 Mg Tab 500 Mg PO BID 12/24/16 Reported Glimepiride 4 Mg Tab 4 Mg PO QAM 12/24/16 Reported Duloxetine HCl 60 Mg Cap 60 Mg PO DAILY 12/24/16 Reported Advair Diskus 500/50 60 Dose (Fluticasone Prop/Salmeterol) 1 Ea Aerp 1 Puff INH BID 10/17/16 Reported Baclofen 10 Mg Tab 10 Mg PO BID PRN 10/17/16 Reported Ventolin Hfa (Albuterol) 200 Puffs/86300 Mcg Aers 2 Puffs INH Q6H PRN 09/09/16 Reported Prilosec (Omeprazole) 40 Mg Cap 40 Mg PO DAILY 09/09/16 Reported Lipitor (Atorvastatin Calcium) 40 Mg Tab 40 Mg PO HS 12/03/14 Reported [place] 10MG/325MG (Acetaminophen/Hydrocodone Bitart) Tab 1 Tab PO Q6H PRN 09/23/14 Reported Zyrtec (Cetirizine HCl) 10 Mg Tab 10 Mg PO QAM 09/23/14 Reported Provider Instructions Activity Restrictions - No exercising or heavy lifting for 24 hours. - Do not drink alcohol the day of the procedure. - Do not drive a car or operate machinery until the day after the procedure. - Do not make any important decisions or sign important papers in 24 hours after the procedure. Following Day: - Return to full activity which may include returning to work/school. Diet Start your diet with liquids and light foods (jello, soup, juice, toast). Then eat your usual diet if not nauseated. Treatment For Common After Affects For mild abdominal pain, bloating, or excessive gas: - Rest - Eat lightly - Lie on right side Follow-Up Information Follow-up with as scheduled Anesthesia Information What You Should Know You have had a procedure that required some medicine to reduce anxiety and discomfort. This treatment is called moderate sedation. After receiving the treatment, you may be sleepy, but you will be able to breathe on your own. The effects of the treatment may last for several hours. Follow these instructions along with Activity/Diet recommendations noted above: * Do NOT do anything where dizziness or clumsiness would be dangerous. * Rest quietly at home today, then you can be up and about tomorrow. * Have a responsible person stay with you the rest of today. * You may have had an I.V. today. If so, you may take the dressing off later today. Recommendations Call your doctor if: * Trouble breathing * Continuous vomiting for more than 24 hours * Temperature above 101 degrees * Severe abdominal pain or bloating * Pain not relieved by pain medicine ordered * There is increased drainage or redness from any incision * A large amount of rectal bleeding greater than 2-3 tablespoons. (If you had a polyp/s removed or have hemorrhoids, a small amount of blood - from the rectum is to be expected.) * You have any unanswered questions or concerns. IN THE EVENT OF A SERIOUS EMERGENCY, GO TO THE NEAREST EMERGENCY ROOM Your discharge instructions were prepared by provider Emory Nieto. Patient Instructions Signature Page Deja Marcelino Patient (or Guardian) Signature/Date: I have read and understand the instructions given to me by my caregivers. Caregiver/RN/Doctor Signature/Date: The above-named patient and/or guardian has received patient instructions on this date. + Original Patient Signature Page (only) stays with chart. Please make copy for patient.
--- NOTE | 2017-09-15 13:54 | GI REPORT ---
Patient Name: Deja Marcelino Procedure Date: 09/15/2017 1:18 PM Date of : 1965 Admit Type: Outpatient Age: 52 Gender: Female Attending MD: Emory Nieto MD Procedure: Upper GI endoscopy Providers: Emory Nieto MD Referring MD: Israel Nicole Indications: Heartburn, Suspected esophageal reflux Medicines: Midazolam 2 mg IV, Propofol total dose 320 mg IV, Ondansetron 4 mg IV, Lidocaine 80 mg IV Complications: No immediate complications. Estimated Blood Loss: Estimated blood loss: none. Procedure: Pre-Anesthesia Assessment: - Prior to the procedure, a History and Physical was performed, and patient medications, allergies and sensitivities were reviewed. The patient's tolerance of previous anesthesia was reviewed. - The risks and benefits of the procedure and the sedation options and risks were discussed with the patient. All questions were answered and informed consent was obtained. After obtaining informed consent, the endoscope was passed under direct vision. Throughout the procedure, the patient's blood pressure, pulse, and oxygen saturations were monitored continuously. The scope was introduced through the mouth, and advanced to the second part of duodenum. The upper GI endoscopy was accomplished without difficulty. The patient tolerated the procedure well. Findings: The Z-line was regular and was found 39 cm from the incisors. The examined esophagus was normal. The entire examined stomach was normal. The examined duodenum was normal. Impression: - Z-line regular, 39 cm from the incisors. - Normal esophagus. - Normal stomach. - Normal examined duodenum. - No specimens collected. Recommendation: - Discharge patient to home (ambulatory). - Continue present medications. - Return to primary care physician PRN. Emory Nieto M.D. Emory Nieto MD 09/15/2017 1:54:24 PM This report has been signed electronically. Note Initiated On: 09/15/2017 1:18 PM Number of Addenda: 0 I attest to the content of the Intraoperative Record and orders documented therein, exceptions below {[id number]}
--- NOTE | 2017-09-15 14:04 | GI REPORT ---
Patient Name: Deja Marcelino Procedure Date: 09/15/2017 1:19 PM Date of : 1965 Admit Type: Outpatient Age: 52 Gender: Female Attending MD: Emory Nieto MD Procedure: Colonoscopy Providers: Emory Nieto MD Referring MD: Israel Nicole Indications: Family history of colon cancer in a first-degree relative, Personal history of colonic polyps Medicines: Midazolam 2 mg IV, Propofol total dose 320 mg IV, Ondansetron 4 mg IV, Lidocaine 80 mg IV Complications: No immediate complications. Estimated Blood Loss: Estimated blood loss was minimal. Procedure: Pre-Anesthesia Assessment: - Prior to the procedure, a History and Physical was performed, and patient medications, allergies and sensitivities were reviewed. The patient's tolerance of previous anesthesia was reviewed. - The risks and benefits of the procedure and the sedation options and risks were discussed with the patient. All questions were answered and informed consent was obtained. After I obtained informed consent, the scope was passed under direct vision. Throughout the procedure, the patient's blood pressure, pulse, and oxygen saturations were monitored continuously. The scope was introduced through the anus and advanced to the cecum, identified by appendiceal orifice and ileocecal valve. The colonoscopy was performed without difficulty. The patient tolerated the procedure well. The quality of the bowel preparation was excellent. Findings: A 5 mm polyp was found in the mid ascending colon. The polyp was sessile. The polyp was removed with a cold snare. Resection and retrieval were complete. Estimated blood loss was minimal. A 4 mm polyp was found in the rectum. The polyp was sessile. The polyp was removed with a cold snare. Resection and retrieval were complete. Estimated blood loss was minimal. Impression: - One 5 mm polyp in the mid ascending colon, removed with a cold snare. Resected and retrieved. - One 4 mm polyp in the rectum, removed with a cold snare. Resected and retrieved. Recommendation: - Discharge patient to home (ambulatory). - Continue present medications. - Await pathology results. - Return to primary care physician AARONN. Brooklyn Garcia MD 09/15/2017 2:03:44 PM This report has been signed electronically. Note Initiated On: 09/15/2017 1:19 PM Number of Addenda: 0 I attest to the content of the Intraoperative Record and orders documented therein, exceptions below {[id number]}
--- NOTE | 2017-09-15 14:24 | Anesthesiology Progress Note ---
Anesthesia Post Op Note Date & Time September 15, 2017 at 14:24 Vital Signs Vital Signs Past 12 Hours Date Time Temp Pulse Resp B/P (MAP) Pulse Ox O2 Delivery O2 Flow Rate FiO2 09/15/17 14:11 91 20 120/72 (88) 94 Room Air 09/15/17 13:56 91 20 126/75 (92) 94 Room Air 5 Oxymask 09/15/17 13:15 36.8 95 20 143/77 (99) 95 Room Air 09/15/17 13:10 97 16 94 Room Air Notes Mental Status: alert / awake / arousable, participated in evaluation Pt Amnestic to Procedure: Yes Nausea / Vomiting: adequately controlled Pain: adequately controlled Airway Patency, RR, SpO2: stable & adequate BP & HR: stable & adequate Hydration State: stable & adequate Anesthetic Complications: no major complications apparent
[2017-09-15 14:29] VITALS: BP 120/76; PULSE 85; O2SAT 95
== END | disposition home or self-care (01) ==
LOC: C.GI 12:32
PROVIDERS: ATTEND Internal Medicine Gastroenterology
DX: R12 Heartburn (principal); K21.9 Gastro-esophageal reflux disease without esophagitis; R19.7 Diarrhea, unspecified; D12.2 Benign neoplasm of ascending colon; K62.1 Rectal polyp; Z86.010 Personal history of colon polyps; J45.909 Unspecified asthma, uncomplicated; J44.9 Chronic obstructive pulmonary disease, unspecified; G47.33 Obstructive sleep apnea (adult) (pediatric); E11.9 Type 2 diabetes mellitus without complications; M19.90 Unspecified osteoarthritis, unspecified site; Z88.1 Allergy status to other antibiotic agents; Z88.8 Allergy status to other drugs, medicaments and biological substances; Z79.899 Other long term (current) drug therapy; Z90.89 Acquired absence of other organs; Z79.84 Long term (current) use of oral hypoglycemic drugs; Z96.652 Presence of left artificial knee joint; Z80.0 Family history of malignant neoplasm of digestive organs

== ENCOUNTER 2017-12-14 16:51 | Emergency (ER) | payer OTHER ==
[~2017-12-14] VITALS: Ht 162.6 cm; Wt 94.4 kg
[~2017-12-14 16:51] MED LIST changes: -ALBUT/IPRATROP 3MG/0.5MG NEB 3 ML VIAL INH STA; -LIDOCAINE HCL 2% 2 ML VIAL (20MG/ML) ONE; -MIDAZOLAM HCL 1 MG/ML 2ML VIAL ONE; -ONDANSETRON INJ 2 MG/ML 2 ML VIAL ONE; -PROPOFOL IV EMULSION 10 MG/ML 20 ML VIAL ONE
[2017-12-14 16:59] VITALS: TEMP 36.7; Ht 162.6 cm; Wt 94.4 kg
[2017-12-14] MEDS ORDERED: METFTAB PO (17:08)
[2017-12-14] MEDS ORDERED: DULA1INJ (17:08)
[2017-12-14] MEDS ORDERED: HYDR-3983 PO (17:08)
[2017-12-14] MEDS ORDERED: ALUMINUM/MAGNESIUM SUSP 30 ML UDC PO STA (17:13)
[2017-12-14] MEDS ORDERED: KETOROLAC TROMETHAMINE 60 MG/2 ML VIAL IM STA (17:13)
[2017-12-14] MEDS ORDERED: MoRPHine SULFATE 10 MG/ML CARP/VIAL IM STA (17:13)
[2017-12-14] MEDS ORDERED: LIDOCAINE HCL 2% VISC SOLN 20 ML UDC PO STA (17:13)
[2017-12-14 17:27] VITALS: BP 136/84; PULSE 78; O2SAT 98
--- NOTE | 2017-12-14 18:50 | EMERGENCY ROOM VISIT NOTE ---
History First contact with patient: 17:01 Chief Complaint: BACK PAIN Stated Complaint: LOW BACK PAIN, TAILBONE PAIN History of Present Illness The patient is a 52 year old female who presents to the Emergency Room with complaints of lower back pain radiating down the left leg to her foot. The patient reports a history of chronic back issues. She reports having extensive workup, physical therapy and other treatments for her back without success. She follows with her family doctor for her back pain, admitting that she takes Briggs and baclofen. She denies any recent trauma to the back. She currently denies any urinary/bowel incontinence, saddle anesthesias or left lower extremity weakness. She rates her discomfort an 8 out of 10. The patient reports that usually she is given a shot of morphine and Toradol, along with a GI cocktail which helps with her symptoms. Review of Systems 10 system review was performed and was negative except for pertinent positives and negatives as indicated in history of present illness Past Medical/Surgical History Medical Problems: (1) Anxiety (2) Appendectomy (3) Asthma (4) Bilateral inguinal hernia repair (5) Cholecystitis (6) Diabetes mellitus type 2 (7) fibromyalgia (8) History of - tubal ligation (9) Left total knee revision in 03/09 (10) presyncope (11) seasonal allergies Family History Cancer Colon cancer Diabetes mellitus Gallbladder disease Heart disease Hypertension Lung disease Social History Smoking Status: Current Every Day Smoker Alcohol Use: none Drug Use: marijuana Marital Status: Housing Status: lives with family Occupation Status: unemployed Current/Historical Medications Scheduled Atorvastatin (Lipitor), 40 MG PO HS Cetirizine (Zyrtec), 10 MG PO QAM Dulaglutide (Trulicity), Unknown Dose WK Duloxetine HCl (Duloxetine HCl), 60 MG PO DAILY Fluticasone Prop/Salmeterol (Advair Diskus 500/50 60 Dose), 1 PUFF INH BID Insulin Glargine (Basaglar Kwikpen), 50 UNITS SQ HS Metformin Ext Rel (Glucophage Ext Rel), 500 MG PO BID Omeprazole (Prilosec), 40 MG PO DAILY Scheduled PRN Albuterol Hfa (Ventolin Hfa), 2 PUFFS INH Q6H PRN for Shortness of Breath Baclofen (Baclofen), 10 MG PO BID PRN for Muscle Spasm Fluticasone Propionate (Fluticasone Propionate), 2 SPRAYS DANIKA DAILY PRN for Allergy Symptoms Hydrocodone/Acetaminophen 7.5MG/325MG (Briggs 7.5MG/325MG), 1 TAB PO Q6H PRN for Pain Lorazepam (Lorazepam), 1 MG PO TID PRN for Anxiety Ondasetron Odt (Zofran Odt), 4 MG SL Q6H PRN for Nausea Physical Exam Vital Signs Date Time Temp Pulse Resp B/P (MAP) Pulse Ox O2 Delivery O2 Flow Rate FiO2 12/14/17 17:27 78 18 136/84 98 Room Air 12/14/17 16:59 36.7 76 18 132/80 97 Room Air Physical Exam CONSTITUTIONAL: Healthy and well nourished. Alert and oriented X 3 with positive affect. Patient is standing at bedside, and reports moderate discomfort. HEENT: Normocephalic, atraumatic. Pupils equal, round and reactive. NECK: Full active range of motion without discomfort. RESPIRATORY: Clear to auscultation bilaterally with no wheezing, crackles, rhonchi or stridor. CARDIOVASCULAR: Regular rate and rhythm with no murmurs, rubs or gallops. GASTROINTESTINAL: Bowel sounds present in all quadrants. Abdomen is soft and nontender to palpation. MUSCULOSKELETAL: Examination shows generalized tenderness to palpation through the left lumbar paraspinous muscle and SI joint. Negative logroll. Positive sitting straight leg raise. Pedal pulses are intact. Ankle plantar/ dorsiflexion strength is 4 out of 5 and symmetric bilaterally. INTEGUMENTARY: No rash or other significant dermatologic conditions noted. NEUROLOGIC: No focal neurologic deficits noted. Left foot and toes are sensory intact. Medical Decision & Procedures Medications Administered Medications (Trade) Dose Ordered Sig/Darrell Route Start Time Stop Time Status Last Admin Dose Admin Ketorolac Tromethamine (Toradol Inj) 60 mg NOW STAT IM 12/14/17 17:13 12/14/17 17:15 DC 12/14/17 17:26 60 MG Morphine Sulfate (MoRPHine SULFATE INJ) 10 mg NOW STAT IM 12/14/17 17:13 12/14/17 17:15 DC 12/14/17 17:25 10 MG Lidocaine HCl (Viscous Lidocaine 2% Soln) 10 ml NOW STAT PO 12/14/17 17:13 12/14/17 17:15 DC 12/14/17 17:26 10 ML Al Hydroxide/Mg Hydroxide (Maalox Susp) 30 ml NOW STAT PO 12/14/17 17:13 12/14/17 17:15 DC 12/14/17 17:26 30 ML ED Course Patient history and physical exam were performed. Nurse's notes were reviewed. Vital signs were appears in moderate discomfort. I did review prior medical records, including the [place] Prescription Drug Monitoring Program, showing that the patient does receive regular monthly prescriptions for Briggs 7.5/325 with her last prescription fill on 11/29/17. Physical exam is not consistent with cauda equina syndrome. The patient was administered morphine 10 mg and Toradol 60 mg IM, along with a GI cocktail. The patient was advised that she would need to discuss further medication management with her PCP. She may also require additional workup if symptoms are not improving. The patient reports that physical therapy has not helped with her symptoms in the past. She does see the [facility] for chronic migraines, and reports that she would try to get a referral from her PCP for the pain clinic to evaluate her back as well. The patient voiced understanding of all discharge instructions, and rated her discomfort a 5 out of 10 at the conclusion of my exam. Medical Decision See previous section. History and physical exam findings are not consistent with cauda equina syndrome. She gives no history of trauma to suggest hematoma. I do not suspect abscess, Lyme disease, or other infectious etiologies. [place] Drug Monitoring Program Search Results: patient reviewed within database, see additional documentation Medication Reconcilliation Current Medication List: was personally reviewed by me Blood Pressure Screening Patient's blood pressure: Normal blood pressure Impression Primary Impression: Left lumbar radiculitis Additional Impression: Chronic lumbar pain Departure Information Dispostion Home / Self-Care Condition GOOD Forms HOME CARE DOCUMENTATION FORM, IMPORTANT VISIT INFORMATION Patient Instructions My [facility] Narrative Science Additional Instructions Avoid heavy lifting or sitting for long periods of time. Follow-up with your family doctor to discuss further management. Return to the emergency department for any bladder/bowel incontinence, numbness of the inner thighs/pubic region or profound left lower extremity weakness. Problem Qualifiers Additional Impression: Chronic lumbar pain Back pain laterality: left Sciatica presence: with sciatica Sciatica laterality: sciatica of left side Qualified Codes: M54.42 - Lumbago with sciatica, left side; G89.29 - Other chronic pain
== END 2017-12-14 17:38 | disposition home or self-care (01) ==
LOC: C.EDB 16:53 → C.EDD 17:38
DX: M54.16 Radiculopathy, lumbar region (principal); E11.9 Type 2 diabetes mellitus without complications; M79.7 Fibromyalgia; F41.9 Anxiety disorder, unspecified; Z79.899 Other long term (current) drug therapy; F17.200 Nicotine dependence, unspecified, uncomplicated; Z80.0 Family history of malignant neoplasm of digestive organs; Z82.49 Family history of ischemic heart disease and other diseases of the circulatory system; Z83.3 Family history of diabetes mellitus; Z83.6 Family history of other diseases of the respiratory system

== ENCOUNTER 2019-06-22 12:37 | Observation (INO) ==
[2019-06-22] MEDS ORDERED: GI COCKTAIL ED USE PO ONE (13:08)
[2019-06-22] MEDS ORDERED: ONDANSETRON INJ 2 MG/ML 2 ML VIAL IV STA (13:08)
[2019-06-22] MEDS ORDERED: ASPIRIN CHEW 324 MG PO STA (13:08)
[2019-06-22] MEDS ORDERED: NITROGLYCERIN SL 0.4 MG/TAB TAB SL PRN (13:08)
[2019-06-22] MEDS ORDERED: SODIUM CHLORIDE 0.9% 1000ML 1,000 ML IV SCH (13:15)
[2019-06-22 13:17] LABS: Basophils # (auto) 0.07 K/uL (0-0.2); Basophils % (auto) 0.6 %; Eosinophils # (auto) 0.12 K/uL (0-0.5); Hematocrit (blood only) 43.7 % (37-47); Hemoglobin 15.1 g/dL (12.0-16.0); Immature Granulocytes # (auto) 0.04 K/uL (0.00-0.02); Immature Granulocytes % (auto) 0.3 %; Lymphocytes # (auto) 3.53 K/uL (1.2-3.4); Lymphocytes % (auto) 30.2 %; Mean Corpuscular Hemoglobin 30.1 pg (25-34); Mean Corpuscular Hgb Conc 34.6 g/dL (32-36); Mean Corpuscular Volume 87.2 fL (80-100); Mean Platelet Volume 8.8 fL (7.4-10.4); Monocytes # (auto) 0.77 K/uL (0.11-0.59); Monocytes % (auto) 6.6 %; Neutrophils # (auto) 7.17 K/uL (1.4-6.5); Neutrophils % (auto) 61.3 %; Platelet Count 297 K/uL (130-400); RDW Coefficient of Variation 13.9 % (11.5-14.5); RDW Standard Deviation 44.2 fL (36.4-46.3); Red Blood Count 5.01 M/uL (4.2-5.4)
[2019-06-22 13:23] LABS: Alanine Aminotransferase 31 U/L (12-78); Albumin Level 3.9 gm/dl (3.4-5.0); Aspartate Aminotransferase 21 U/L (15-37); BUN Creatinine Ratio 10.5 (10-20); Bilirubin Direct < 0.1 mg/dl (0-0.2); Blood Urea Nitrogen 7 mg/dl (7-18); Calcium 9.6 mg/dl (8.5-10.1); Carbon Dioxide 26 mmol/L (21-32); Chloride 103 mmol/L (98-107); Creatinine Clr Calc Pharmacy 98.8 ml/min; D Dimer 240 ug/L FEU (0-500); Est GFR (African American) 112.8; Est GFR (Non-African American) 97.3; Glucose 98 mg/dl (70-99); Lipase 229 U/L (73-393); Partial Thromboplastin Ratio 0.9; Partial Thromboplastin Time 24.5 Seconds (21.0-31.0); Potassium 4.1 mmol/L (3.5-5.1); Prothrombin Time 9.8 Seconds (9.0-12.0); Sodium 135 mmol/L (136-145)
[2019-06-22 13:28] LABS: Alkaline Phosphatase 91 U/L (45-117); Bilirubin,Total 0.4 mg/dl (0.2-1); Troponin I < 0.015 ng/ml (0-0.045)
--- NOTE | 2019-06-22 13:42 | XRay Report ---
XR chest 2V PA/lateral CLINICAL HISTORY: Chest Pain pain COMPARISON STUDY: 2018 FINDINGS: The bones soft tissues and hemidiaphragms are normal. The cardiomediastinal silhouette is n ormal. The lungs are clear. The pulmonary vasculature is normal. IMPRESSION: Negative chest. ACT 112: Negative or not required by law. The above report was generated using voice recognition software. It may contain grammatical, syntax or spelling errors. Electronically signed by: Aidan Concepcion M.D. 06/22/2019 1:40 PM
[2019-06-22] MEDS ORDERED: HYDROCODONE/ACETAMINOPHEN 7.5/325MG TAB PO PRN (18:29)
[2019-06-22] MEDS ORDERED: BACLOFEN 10 MG TAB PO PRN (18:29)
[2019-06-22] MEDS ORDERED: ALBUTEROL HFA 8 GM INHALER INH PRN (18:29)
[2019-06-22] MEDS ORDERED: ALUMINUM/MAGNESIUM SUSP 30 ML UDC PO PRN (18:29)
[2019-06-22] MEDS ORDERED: ONDANSETRON INJ 2 MG/ML 2 ML VIAL IV PRN (18:29)
[2019-06-22] MEDS ORDERED: ACETAMINOPHEN 325 MG TAB PO PRN (18:29)
[2019-06-22] MEDS ORDERED: LORazepam 1 MG TAB PO PRN (19:21)
[2019-06-22] MEDS ORDERED: GLUCAGON FOR INJ 1 MG VIAL IM PRN (19:30)
[2019-06-22] MEDS ORDERED: DEXTROSE 50% 50 ML SYRINGE IV PRN (19:30)
[2019-06-22] MEDS ORDERED: GLUCOSE 40% GEL 15 GM TUBE PO PRN (19:30)
[2019-06-22] MEDS ORDERED: GLUCOSE 10 TABS/TUBE PO PRN (19:30)
[2019-06-22] MEDS ORDERED: CARBOHYDRATES FOR HYPOGLYCEMIA PO PRN (19:30)
--- NOTE | 2019-06-22 20:32 | Emergency Department Note ---
Entered by Kristine Moore acting as a scribe for Rodolfo Pinto History of Present Illness General Chief complaint: Chest Pain Stated complaint: CHEST DISCOMFORT Time Seen by Provider: 06/22/19 13:00 Source: patient History of Present Illness Provider complaint: Chest Pain Onset (ago): day(s) 3 Location: chest Radiation: other (Jaw) Maximum Pain Intensity: 6 Relieved By: + none Exacerbated By: + none Associated symptoms: + shortness of breath The patient is a 54 year old female who presents to the Emergency Room with complaints of chest pain that began 3 days ago. The patient states that her pain radiates to both sides of her chest and to her left jaw but is not exacerbated nor relieved by anything specific. The patient reports experiencing shortness of breath. The patient notes that there is significant cardiac history, a sister who of a massive heart attack in her 60s. Home Medications Home Medications Medication Instructions Recorded Confirmed Type atorvastatin 40 mg tablet 40 mg PO HS 02/02/18 06/22/19 History baclofen 10 mg tablet 10 mg PO BID PRN tab 02/02/18 06/22/19 History duloxetine 60 mg capsule,delayed 60 mg PO QAM 02/02/18 06/22/19 History release fluticasone propionate 50 2 sprays INTNAS DAILY 02/02/18 06/22/19 History mcg/actuation nasal spray,suspension hydrocodone 7.5 mg-acetaminophen 1 tab PO Q6H PRN tab 02/02/18 06/22/19 History 325 mg tablet lorazepam 1 mg tablet 1 mg PO TID PRN tab 02/02/18 06/22/19 History ondansetron HCl 4 mg tablet 4 mg PO QID PRN 02/02/18 06/22/19 History Basaglar KwikPen U-100 Insulin 20 unit SUBCUT QPM 04/17/18 06/22/19 History omeprazole 40 mg PO QAM 04/17/18 06/22/19 History albuterol sulfate [Ventolin HFA] 2 puff INHALATION QID PRN 09/28/18 06/22/19 History klxabnrbzy-rctgcrpsufrvg-idoc 1 tab PO Q8H PRN 09/28/18 06/22/19 History [Esgic] fluticasone propion-salmeterol 1 inh INHALATION BID 09/28/18 06/22/19 History [Advair Diskus] metformin [Glucophage XR] 1,000 mg PO BID 02/18/19 06/22/19 History dulaglutide 1.5 mg/0.5 mL 1.5 mg SUBCUT WK #2 ml 03/10/19 06/22/19 Rx subcutaneous pen injector blood sugar diagnostic #10 ea 05/17/19 05/17/19 History lancets 33 gauge #100 ea 05/17/19 05/17/19 History Centrum Silver Women 1 tab PO DAILY 06/22/19 06/22/19 History cyanocobalamin (vitamin B-12) 2,500 mcg SUBLINGUAL DAILY 06/22/19 06/22/19 History [Vitamin B-12] Allergies Allergy/AdvReac Type Severity Reaction Status Date / Time pregabalin Allergy Intermediate HIVES Verified 06/22/19 15:36 amoxicillin Allergy Mild RASH Verified 06/22/19 15:36 benzonatate Allergy Mild RASH Verified 06/22/19 15:36 clavulanic acid Allergy Unknown RASH Verified 06/22/19 15:36 clindamycin AdvReac Severe GI UPSET Verified 06/22/19 15:36 doxycycline AdvReac Severe VOMIT Verified 06/22/19 15:36 tetracycline AdvReac Severe VOMIT Verified 06/22/19 15:36 NSAIDS (Non-Steroidal AdvReac Intermediate nausea Verified 06/22/19 15:36 Anti-Inflamma hydromorphone AdvReac Unknown severe Verified 06/22/19 15:36 headache Past Med/Surg History Medical History Anxiety (Chronic) Asthma (Chronic) Chronic back pain Coccydynia (Suspected) COPD (chronic obstructive pulmonary disease) Degenerative disc disease Depression Diabetes mellitus, type 2 IDDM Fibromyalgia (Chronic) History of palpitations r/t anxiety History of revision of total replacement of left knee joint Hx of squamous cell carcinoma Left lumbar radiculitis (Chronic) Lumbago (Chronic) Migraine (Chronic) Occipital neuralgia Opioid dependence (Chronic) Opioid-induced hyperalgesia (Chronic) Post traumatic stress disorder Sacroiliitis (Chronic) Tobacco use (Chronic) Surgical History History of appendectomy (Resolved) History of bilateral tubal ligation History of colonoscopy History of dilatation and curettage with endometrial biopsy History of esophagogastroduodenoscopy (EGD) History of herniorrhaphy spigelian hernia repair Hx of cholecystectomy Hx of lumpectomy right (benign) Hx of total knee arthroplasty (Resolved) Left S/P epidural steroid injection S/P inguinal hernia repair bilateral Status post Mohs surgery Family History Father Family history of reaction to anesthesia ~2011 father woke up on ventilator s/p colon resection, unsure as to why, he was a long time smoker and MARLON. Family history of diabetes mellitus Brother Family history of diabetes mellitus Other No pertinent family history Social History Preferred Language: Guyanese Communication Ability: Effective Visual Impairment: No Limitations Hearing Ability: Normal Mainframe Consultant Required: No Beliefs That Will Affect Care: None marital status: Current Living Situation: Spouse Current Living Situation Comment: live with and grandchildren (2) current occupational status: disabled Other Information That Helps Us Care for You: No Feels Safe at Home: Yes Safety Concerns: Feels Safe At This Time Smoking Status: Current every day smoker Tobacco Type: cigarettes ; Cigarettes Per Day: 30 ; Second Hand Exposure: Yes ; Tobacco Cessation Education Requested by Patient: No Hx Alcohol Use: No Hx Substance Use: Yes substance use type: marijuana Last Used Substance: Days (ago) Last Used Substance Other:: with last two weeks per pt, has medical card Review of Systems See HPI for pertinent positives & negatives. and A total of 10 systems reviewed and were otherwise negative Physical Exam Vital Signs Vital Signs - 24 hr 06/22/19 12:42 06/22/19 12:45 06/22/19 14:31 Temperature 36.9 C Temperature Source Oral Pulse Rate 96 H 85 Pulse Rate [Apical] Pulse Rhythm Regular Pulse Rhythm [Apical] Pulse Strength [Apical] Respiratory Rate 18 Respiratory Effort / Characteristics Non-Labored Spontaneous Non-Labored Spontaneous Respiratory Depth Normal Normal Respiratory Pattern Regular Blood Pressure 131/80 Blood Pressure [Right Arm] Blood Pressure Mean 97 Blood Pressure Mean [Right Arm] Blood Pressure Position Sitting Blood Pressure Position [Right Arm] Pulse Oximetry 100 99 Oxygen Delivery Method Room Air Room Air Room Air Sepsis Recent Fever Within 48 Hours No Sepsis New/Unexplained Change in Mental Status No Sepsis Action Taken by Nursing No Action Required 06/22/19 14:32 06/22/19 15:15 Temperature Temperature Source Pulse Rate Pulse Rate [Apical] 83 88 Pulse Rhythm Pulse Rhythm [Apical] Regular Regular Pulse Strength [Apical] Normal Normal Respiratory Rate 18 16 Respiratory Effort / Characteristics Non-Labored Spontaneous Non-Labored Spontaneous Respiratory Depth Normal Normal Respiratory Pattern Regular Regular Blood Pressure Blood Pressure [Right Arm] 119/77 111/64 Blood Pressure Mean Blood Pressure Mean [Right Arm] 91 79 Blood Pressure Position Blood Pressure Position [Right Arm] Lying Pulse Oximetry 99 99 Oxygen Delivery Method Room Air Room Air Sepsis Recent Fever Within 48 Hours Sepsis New/Unexplained Change in Mental Status Sepsis Action Taken by Nursing GENERAL: She is oriented to person, place, and time. She appears well-developed and well-nourished. She does not appear distressed. HENT: Exam performed. Head: Normocephalic and atraumatic. Right Ear: External ear normal. No mastoid tenderness. Left Ear: External ear normal. No mastoid tenderness. Mouth/Throat: The oropharynx is clear and moist. No trismus in the jaw. No dental abscesses or uvula swelling. No oropharyngeal exudate or tonsillar abscesses. EYES: Conjunctivae and EOM are normal. Pupils are equal, round, and reactive to light. Right eye exhibits no discharge. Left eye exhibits no discharge. No scleral icterus. NECK: Normal range of motion. Neck supple. No JVD present. No spinous process tenderness present. No carotid bruit present. No rigidity. No tracheal deviation and normal range of motion present. No Brudzinski's sign and no Kernig's sign noted. CV: Normal rate, regular rhythm, normal heart sounds and intact distal pulses. There is no peripheral edema. Palpable radial pulses bue. PULM/CHEST: Effort normal and breath sounds normal. No respiratory distress. No stridor. She has no wheezes. She has no rales. Chest Wall: She exhibits no tenderness. ABD: The abdomen is soft. Bowel sounds are normal. She has no distension. No mass is present. There is no tenderness. There is no rebound, no guarding, no Taylor's sign and no tenderness at McBurney's point. Rovsig negative MUSC/SKEL: Normal range of motion. There is no peripheral edema, tenderness or deformity. LYMPH: No cervical adenopathy. NEURO: She is alert and oriented to person, place, and time. She has normal strength. No cranial nerve deficit or sensory deficit. Coordination and gait normal. GCS eye subscore is 4. GCS verbal subscore is 5. GCS motor subscore is 6. cerbellar tests wnl. SKIN: Skin is warm and dry. She is not diaphoretic. PSYCH: She has a normal mood and affect. Her behavior is normal. Judgment and thought content normal. Course Course 1303: Past medical records reviewed. The patient was evaluated in room B02. A complete history and physical exam was performed. 1411: Vital signs stable. Labs and imaging within normal limits. The patient has a moderate heart score and will be admitted for chest pain to rule out ACS. 1440: I spoke with Dr. Delphine Lindsey- Hospitalist about the patient's case and she will accept the patient for further evaluation. Administered Medications Hydrocodone Bitart/Acetaminophen ([place] 7.5/325mg) 1 tab PO Q6H PRN PRN Reason: Pain Stop: 07/06/19 18:28 Last Admin: 06/22/19 19:29 Dose: 1 tab Documented by: [id number] Discontinued Medications Al Hydrox/Mg Hydrox/Simethicone () 1 dose PO ONE ONE Stop: 06/22/19 13:09 Last Admin: 06/22/19 13:26 Dose: 1 dose Documented by: [id number] Aspirin (Aspirin) 324 mg PO NOW STA Stop: 06/22/19 13:09 Last Admin: 06/22/19 13:26 Dose: 324 mg Documented by: [id number] Sodium Chloride (Nss 1000ml) 1,000 mls @ 999 mls/hr IV .Q1H1M BLAIRE Stop: 06/22/19 14:15 Last Infusion: 06/22/19 14:29 Dose: 0 mls/hr Documented by: [id number] Admin: 06/22/19 13:26 Dose: 999 mls/hr Documented by: [id number] Ondansetron HCl (Zofran) 4 mg IV NOW STA Stop: 06/22/19 13:09 Last Admin: 06/22/19 13:26 Dose: 4 mg Documented by: [id number] Medical Decision Making Medical Records Attestation: I reviewed the patient's medical records. Home Medications Current Medication List: was personally reviewed by me Laboratory Data Attestation: I reviewed the patient's lab results. Result diagrams: 06/22/19 12:50 06/22/19 12:50 Lab Results 06/22/19 06/22/19 06/22/19 Range/Units 12:50 12:50 12:50 WBC 11.70 H (4.8-10.8) K/uL RBC 5.01 (4.2-5.4) M/uL Hgb 15.1 (12.0-16.0) g/dL Hct 43.7 (37-47) % MCV 87.2 (80-100) fL MCH 30.1 (25-34) pg MCHC 34.6 (32-36) g/dL RDW Std Deviation 44.2 (36.4-46.3) fL RDW Coeff of Herber 13.9 (11.5-14.5) % Plt Count 297 (130-400) K/uL MPV 8.8 (7.4-10.4) fL Immature Gran % (Auto) 0.3 % Neut % (Auto) 61.3 % Lymph % (Auto) 30.2 % [place] % (Auto) 6.6 % Eos % (Auto) 1.0 % Baso % (Auto) 0.6 % Immature Gran # (Auto) 0.04 H (0.00-0.02) K/uL Neut # (Auto) 7.17 H (1.4-6.5) K/uL Lymph # (Auto) 3.53 H (1.2-3.4) K/uL [place] # (Auto) 0.77 H (0.11-0.59) K/uL Eos # (Auto) 0.12 (0-0.5) K/uL Baso # (Auto) 0.07 (0-0.2) K/uL PT 9.8 (9.0-12.0) Seconds INR 1.0 (0.9-1.1) APTT 24.5 (21.0-31.0) Seconds PTT Ratio 0.9 D-Dimer 240 (0-500) ug/L FEU Sodium 135 L (136-145) mmol/L Potassium 4.1 (3.5-5.1) mmol/L Chloride 103 (98-107) mmol/L Carbon Dioxide 26 (21-32) mmol/L Anion Gap 6.0 (3-11) BUN 7 (7-18) mg/dl Creatinine 0.69 (0.6-1.2) mg/dl Est Cr Clr Drug Dosing 98.8 ml/min Est GFR ( Amer) 112.8 Est GFR (Non-Af Amer) 97.3 BUN/Creatinine Ratio 10.5 (10-20) Glucose 98 (70-99) mg/dl Calcium 9.6 (8.5-10.1) mg/dl Total Bilirubin 0.4 (0.2-1) mg/dl Direct Bilirubin < 0.1 (0-0.2) mg/dl AST 21 (15-37) U/L ALT 31 (12-78) U/L Alkaline Phosphatase 91 (45-117) U/L Troponin I < 0.015 (0-0.045) ng/ml Total Protein 8.0 (6.4-8.2) gm/dl Albumin 3.9 (3.4-5.0) gm/dl Lipase 229 (73-393) U/L Imaging Data Radiologist's Impression: Radiology results as stated below per my review and the radiologist's interpretation: XR chest 2V PA/lateral CLINICAL HISTORY: Chest Pain pain COMPARISON STUDY: 2018 FINDINGS: The bones soft tissues and hemidiaphragms are normal. The cardiomedia stinal silhouette is normal. The lungs are clear. The pulmonary vasculature is normal. IMPRESSION: Negative chest. ACT 112: Negative or not required by law. The above report was generated using voice recognition software. It may contain grammatical, syntax or spelling errors. Electronically signed by: Aidan Concepcion M.D. 06/22/2019 1:40 PM ECG Data Attestation: I personally reviewed and interpreted this ECG as follows: Indication: + chest pain Rate (beats per minute): 93 Rhythm: + sinus rhythm ECG Intervals/blocks: + Normal QRS, + Normal PA and + Normal QT-c ECG ST segments: no ST depression and no ST elevation Blood Pressure Blood Pressure Findings: Normal blood pressure Blood Pressure Disposition: further management by hospitalist KWAME Narrative 1303: Past medical records reviewed. The patient was evaluated in room B02. A complete history and physical exam was performed. 1411: Vital signs stable. Labs and imaging within normal limits. The patient has a moderate heart score and will be admitted for chest pain to rule out ACS. 1440: I spoke with Dr. Delphine Lindsey- Hospitalist about the patient's case and she will accept the patient for further evaluation. Impression & Plan Chest pain, unspecified Discharge Plan Visit Data *Final* Discharge Date/Time: 06/22/19 18:00 Chief Complaint: Chest Pain Stated Complaint: CHEST DISCOMFORT ED Provider: Rodolfo Pinto Discharge Problem: Chest pain, unspecified Patient Disposition: Admitted As Inpatient Discharge Instructions Interventions: ED Discharge Assessment Last Done: 06/22/19 18:00 Discharge Problem: Chest pain, unspecified Qualifiers: Chest pain type: unspecified Qualified Code(s): R07.9 - Chest pain, unspecified The scribe's documentation has been prepared under my direction and personally reviewed by me in its entirety. I confirm that the note above accurately reflec ts all work, treatment, procedures, and medical decision making performed by me.
[2019-06-22] MEDS ORDERED: ATORVASTATIN 40 MG TAB PO SCH (21:00)
[2019-06-22] MEDS ORDERED: INSULIN GLARGINE SOLOSTAR 100 UNITS/ML 3 ML PEN SQ SCH (21:00)
--- NOTE | 2019-06-22 21:30 | History & Physical Report ---
Date of Service June 22, 2019 Assessment & Plan (1) Chest pain, unspecified: 54-year-old female with history of hypertension, hyperlipidemia, diabetes, active tobacco use presenting with 1 to 2 days of left-sided chest discomfort. Troponin negative x1, EKG with no acute ischemic changes. Patient with reproducible chest wall pain as well as epigastric discomfort and wheezing on exam. Low suspicion for ACS at this time. Differential to include asthma/COPD, GERD, musculoskeletal pain Observation to medical floor with telemetry monitoring Repeat troponin every 8 hours x2 sets Continue aspirin 81 mg p.o. daily Continue atorvastatin 40 mg p.o. nightly Present on Admission?: Yes (2) Type 2 diabetes mellitus: Patient with type 2 diabetes. Last hemoglobin A1c on record = 8.7 from August 2017 Continue Lantus 20 units subcutaneous nightly Continue to monitor Repeat A1c Present on Admission?: Yes (3) Hyperlipidemia: Chronic. Stable. Continue atorvastatin Present on Admission?: Yes (4) Fibromyalgia: Patient reports her symptoms are fairly well controlled. Continue Cymbalta 60 mg p.o. every morning Continue baclofen 10 mg p.o. twice daily Continue hydrocodone/Tylenol at home dose Present on Admission?: Yes (5) Asthma: Patient denies shortness of breath. She does admit to some mild dyspnea on exertion. + Diffuse wheezing noted on exam Albuterol as needed Continue fluticasone/Vilanterol Present on Admission?: Yes (6) GERD (gastroesophageal reflux disease): Chronic. Possible underlying etiology of patient's presenting complaint. Continue Protonix 40 mg p.o. every morning Maalox as needed Zofran as needed for nausea F/E/N-Hep-Lock. Monitor electrolytes and replete as needed, heart healthy diet/consistent carb as tolerated Prophylaxislow risk for DVT. Encourage ambulation Codefull per discussion with patient Dispositionobservation to medical floor telemetry monitoring Present on Admission?: Yes History of Present Illness Chief Complaint: Chest pain Primary Care Provider: Israel Nicole MD Deja Marcelino is a 54-year-old female with history of hypertension, hyperlipidemia presenting with chest pain. She reports that for the last 1 to 2 days she has been experiencing substernal chest pressure. Pressure started suddenly while she was at rest. It has been constant, varying in severity, presently 6 out of 10. Pain is nonexertional, non-positional. Mildly worsened by deep breathing. She also has occasional palpitations and nausea. Denies diaphoresis/shortness of breath. Patient called her PCP this morning he was instructed to come to the ER ER course: Maalox, aspirin, nitro, Zofran, normal saline Allergies Allergy/AdvReac Type Severity Reaction Status Date / Time pregabalin Allergy Intermediate HIVES Verified 06/22/19 15:36 amoxicillin Allergy Mild RASH Verified 06/22/19 15:36 benzonatate Allergy Mild RASH Verified 06/22/19 15:36 clavulanic acid Allergy Unknown RASH Verified 06/22/19 15:36 clindamycin AdvReac Severe GI UPSET Verified 06/22/19 15:36 doxycycline AdvReac Severe VOMIT Verified 06/22/19 15:36 tetracycline AdvReac Severe VOMIT Verified 06/22/19 15:36 NSAIDS (Non-Steroidal AdvReac Intermediate nausea Verified 06/22/19 15:36 Anti-Inflamma hydromorphone AdvReac Unknown severe Verified 06/22/19 15:36 headache Home Medications Home Medications Medication Instructions Recorded Confirmed Type atorvastatin 40 mg tablet 40 mg PO HS 02/02/18 06/22/19 History baclofen 10 mg tablet 10 mg PO BID PRN tab 02/02/18 06/22/19 History duloxetine 60 mg capsule,delayed 60 mg PO QAM 02/02/18 06/22/19 History release fluticasone propionate 50 2 sprays INTNAS DAILY 02/02/18 06/22/19 History mcg/actuation nasal spray,suspension hydrocodone 7.5 mg-acetaminophen 1 tab PO Q6H PRN tab 02/02/18 06/22/19 History 325 mg tablet lorazepam 1 mg tablet 1 mg PO TID PRN tab 02/02/18 06/22/19 History ondansetron HCl 4 mg tablet 4 mg PO QID PRN 02/02/18 06/22/19 History Basaglar KwikPen U-100 Insulin 20 unit SUBCUT QPM 04/17/18 06/22/19 History omeprazole 40 mg PO QAM 04/17/18 06/22/19 History albuterol sulfate [Ventolin HFA] 2 puff INHALATION QID PRN 09/28/18 06/22/19 History kvajkzlunb-rsnxpsmrdhrfy-uurv 1 tab PO Q8H PRN 09/28/18 06/22/19 History [Esgic] fluticasone propion-salmeterol 1 inh INHALATION BID 09/28/18 06/22/19 History [Advair Diskus] metformin [Glucophage XR] 1,000 mg PO BID 02/18/19 06/22/19 History dulaglutide 1.5 mg/0.5 mL 1.5 mg SUBCUT WK #2 ml 03/10/19 06/22/19 Rx subcutaneous pen injector blood sugar diagnostic #10 ea 05/17/19 05/17/19 History lancets 33 gauge #100 ea 05/17/19 05/17/19 History Centrum Silver Women 1 tab PO DAILY 06/22/19 06/22/19 History cyanocobalamin (vitamin B-12) 2,500 mcg SUBLINGUAL DAILY 06/22/19 06/22/19 History [Vitamin B-12] Past Med/Surg History Medical History Anxiety (Chronic) Asthma (Chronic) Chronic back pain Coccydynia (Suspected) COPD (chronic obstructive pulmonary disease) Degenerative disc disease Depression Diabetes mellitus, type 2 IDDM Fibromyalgia (Chronic) History of palpitations r/t anxiety History of revision of total replacement of left knee joint Hx of squamous cell carcinoma Left lumbar radiculitis (Chronic) Lumbago (Chronic) Migraine (Chronic) Occipital neuralgia Opioid dependence (Chronic) Opioid-induced hyperalgesia (Chronic) Post traumatic stress disorder Sacroiliitis (Chronic) Tobacco use (Chronic) Surgical History History of appendectomy (Resolved) History of bilateral tubal ligation History of colonoscopy History of dilatation and curettage with endometrial biopsy History of esophagogastroduodenoscopy (EGD) History of herniorrhaphy spigelian hernia repair Hx of cholecystectomy Hx of lumpectomy right (benign) Hx of total knee arthroplasty (Resolved) Left S/P epidural steroid injection S/P inguinal hernia repair bilateral Status post Mohs surgery Family History Father Family history of reaction to anesthesia ~2011 father woke up on ventilator s/p colon resection, unsure as to why, he was a long time smoker and MARLON. Family history of diabetes mellitus Brother Family history of diabetes mellitus Other No pertinent family history Social History Preferred Language: Malay Communication Ability: Effective Visual Impairment: No Limitations Hearing Ability: Normal Patient Appointment Coordinator Required: No Beliefs That Will Affect Care: None marital status: Current Living Situation: Spouse Current Living Situation Comment: live with and grandchildren (2) current occupational status: disabled Other Information That Helps Us Care for You: No Feels Safe at Home: Yes Safety Concerns: Feels Safe At This Time Smoking Status: Current every day smoker Tobacco Type: cigarettes ; Cigarettes Per Day: 30 ; Second Hand Exposure: Yes ; Tobacco Cessation Education Requested by Patient: No Hx Alcohol Use: No Hx Substance Use: Yes substance use type: marijuana Last Used Substance: Days (ago) Last Used Substance Other:: with last two weeks per pt, has medical card Review of Systems Review of Systems: All systems reviewed & are unremarkable except as noted in HPI & below Physical Exam Physical Exam: General: patient resting comfortably, NAD, non-toxic in appearance, AA&O x 4 Skin: warm, dry, intact, no rashes or lesions HEENT: NC/AT, PERRL, EOMI, anicteric sclera, conjunctiva without injection, external ear normal to inspection and nontender, nares patent, moist mucus membranes, dentition intact, no oropharyngeal lesions, neck supple, trachea midline, no LAD, no thyromegaly, no JVD Heart: +S1/S2, regular, no m/r/g, + chest wall tenderness with palpation Lungs: equal air entry bilaterally, no rales/rhonchi, diffuse end expiratory wheezing Abd: +BS, soft, ND, + epigastric tenderness no masses/organomegaly/ascites Ext: warm, 2+ pulses in UE/LE bilaterally, no clubbing/cyanosis or edema Neuro: nonfocal, patient AA&O x 4, speech intact, no facial droop, moving all extremities on command with equal strength 5/5 Results & Data Vital Signs (Past 12 Hours) Vital Signs Temp Pulse Pulse Resp BP BP BP 06/22/19 19:37 36.6 C 75 19 104/53 L 06/22/19 18:41 36.8 C 80 18 126/77 06/22/19 17:50 81 16 117/73 06/22/19 17:00 83 18 102/52 L 06/22/19 15:15 88 16 111/64 06/22/19 14:32 83 18 119/77 06/22/19 14:31 85 06/22/19 12:42 36.9 C 96 H 18 131/80 Pulse Ox 06/22/19 19:37 94 06/22/19 18:41 97 06/22/19 17:50 97 06/22/19 17:00 96 06/22/19 15:15 99 06/22/19 14:32 99 06/22/19 14:31 99 06/22/19 12:42 100 Laboratory Results Lab Results 06/22/19 06/22/19 06/22/19 Range/Units 12:50 12:50 12:50 WBC 11.70 H (4.8-10.8) K/uL RBC 5.01 (4.2-5.4) M/uL Hgb 15.1 (12.0-16.0) g/dL Hct 43.7 (37-47) % MCV 87.2 (80-100) fL MCH 30.1 (25-34) pg MCHC 34.6 (32-36) g/dL RDW Std Deviation 44.2 (36.4-46.3) fL RDW Coeff of Herber 13.9 (11.5-14.5) % Plt Count 297 (130-400) K/uL MPV 8.8 (7.4-10.4) fL Immature Gran % (Auto) 0.3 % Neut % (Auto) 61.3 % Lymph % (Auto) 30.2 % Lander % (Auto) 6.6 % Eos % (Auto) 1.0 % Baso % (Auto) 0.6 % Immature Gran # (Auto) 0.04 H (0.00-0.02) K/uL Neut # (Auto) 7.17 H (1.4-6.5) K/uL Lymph # (Auto) 3.53 H (1.2-3.4) K/uL Lander # (Auto) 0.77 H (0.11-0.59) K/uL Eos # (Auto) 0.12 (0-0.5) K/uL Baso # (Auto) 0.07 (0-0.2) K/uL PT 9.8 (9.0-12.0) Seconds INR 1.0 (0.9-1.1) APTT 24.5 (21.0-31.0) Seconds PTT Ratio 0.9 D-Dimer 240 (0-500) ug/L FEU Sodium 135 L (136-145) mmol/L Potassium 4.1 (3.5-5.1) mmol/L Chloride 103 (98-107) mmol/L Carbon Dioxide 26 (21-32) mmol/L Anion Gap 6.0 (3-11) BUN 7 (7-18) mg/dl Creatinine 0.69 (0.6-1.2) mg/dl Est Cr Clr Drug Dosing 98.8 ml/min Est GFR ( Amer) 112.8 Est GFR (Non-Af Amer) 97.3 BUN/Creatinine Ratio 10.5 (10-20) Glucose 98 (70-99) mg/dl POC Glucose (70-99) mg/dl Calcium 9.6 (8.5-10.1) mg/dl Total Bilirubin 0.4 (0.2-1) mg/dl Direct Bilirubin < 0.1 (0-0.2) mg/dl AST 21 (15-37) U/L ALT 31 (12-78) U/L Alkaline Phosphatase 91 (45-117) U/L Troponin I < 0.015 (0-0.045) ng/ml Total Protein 8.0 (6.4-8.2) gm/dl Albumin 3.9 (3.4-5.0) gm/dl Lipase 229 (73-393) U/L 06/22/19 06/22/19 06/22/19 Range/Units 17:55 18:33 19:54 WBC (4.8-10.8) K/uL RBC (4.2-5.4) M/uL Hgb (12.0-16.0) g/dL Hct (37-47) % MCV (80-100) fL MCH (25-34) pg MCHC (32-36) g/dL RDW Std Deviation (36.4-46.3) fL RDW Coeff of Herber (11.5-14.5) % Plt Count (130-400) K/uL MPV (7.4-10.4) fL Immature Gran % (Auto) % Neut % (Auto) % Lymph % (Auto) % Lander % (Auto) % Eos % (Auto) % Baso % (Auto) % Immature Gran # (Auto) (0.00-0.02) K/uL Neut # (Auto) (1.4-6.5) K/uL Lymph # (Auto) (1.2-3.4) K/uL Lander # (Auto) (0.11-0.59) K/uL Eos # (Auto) (0-0.5) K/uL Baso # (Auto) (0-0.2) K/uL PT (9.0-12.0) Seconds INR (0.9-1.1) APTT (21.0-31.0) Seconds PTT Ratio D-Dimer (0-500) ug/L FEU Sodium (136-145) mmol/L Potassium (3.5-5.1) mmol/L Chloride (98-107) mmol/L Carbon Dioxide (21-32) mmol/L Anion Gap (3-11) BUN (7-18) mg/dl Creatinine (0.6-1.2) mg/dl Est Cr Clr Drug Dosing ml/min Est GFR ( Amer) Est GFR (Non-Af Amer) BUN/Creatinine Ratio (10-20) Glucose (70-99) mg/dl POC Glucose 79 97 (70-99) mg/dl Calcium (8.5-10.1) mg/dl Total Bilirubin (0.2-1) mg/dl Direct Bilirubin (0-0.2) mg/dl AST (15-37) U/L ALT (12-78) U/L Alkaline Phosphatase (45-117) U/L Troponin I < 0.015 (0-0.045) ng/ml Total Protein (6.4-8.2) gm/dl Albumin (3.4-5.0) gm/dl Lipase (73-393) U/L Diagnostic Findings XR chest 2V PA/lateral CLINICAL HISTORY: Chest Pain pain COMPARISON STUDY: 2018 FINDINGS: The bones soft tissues and hemidiaphragms are normal. The cardiomediastinal silhouette is normal. The lungs are clear. The pulmonary vasculature is normal. IMPRESSION: Negative chest. ACT 112: Negative or not required by law. The above report was generated using voice recognition software. It may contain grammatical, syntax or spelling errors. Electronically signed by: Aidan Concepcion M.D. 06/22/2019 1:40 PM Dictated: 06/22/19 1340 Transcribed: 06/22/19 1340 ECG Additional Comments: Study shows normal sinus rhythm at 93 bpm, normal axis, VA = 146, QRS = 86, QTc = 435, no acute ischemic changes. No change when compared with prior study Code Status & VTE Plan Code Status Full code VTE Prophylaxis Plan VTE Prophylaxis will be ordered: Yes PG Care Time/CCT Total # of Minutes Spent Total Time Spent with Patient: Total time spent is greater than 50% in coordination of care (as documented) at patient's floor/unit and/or counseling patient: Coding Level of Care Code 19520 OBS Care - Level 3 Diagnoses Chest pain, unspecified R07.9 Chest pain type: unspecified Type 2 diabetes mellitus E11.9; Z79.4 Diabetes mellitus half-way insulin use: with half-way use Diabetes mellitus complication status: without complication Hyperlipidemia E78.5 Hyperlipidemia type: unspecified Fibromyalgia M79.7 Asthma J45.909 Asthma severity: unspecified severity Asthma complication type: unspecified GERD (gastroesophageal reflux disease) K21.9 Esophagitis presence: esophagitis presence not specified (1) Chest pain, unspecified Chest pain type: unspecified Qualified Code(s): R07.9 - Chest pain, unspecified (2) Type 2 diabetes mellitus Diabetes mellitus half-way insulin use: with terminologist use Diabetes mellitus complication status: without complication Qualified Code(s): E11.9 - Type 2 diabetes mellitus without complications; Z79.4 - manager terminal (current) use of ins ulin (3) Hyperlipidemia Hyperlipidemia type: unspecified Qualified Code(s): E78.5 - Hyperlipidemia, unspecified (4) Asthma Asthma severity: unspecified severity Asthma complication type: unspecified (5) GERD (gastroesophageal reflux disease) Esophagitis presence: esophagitis presence not specified Qualified Code(s): K21.9 - Gastro-esophageal reflux disease without esophagitis
[2019-06-22] MEDS ORDERED: ALBUTEROL 0.5% NEB SOLN 2.5 MG/0.5 ML VIAL NEB PRN (21:43)
[2019-06-22] MEDS: FLUTICASONE/VILANTEROL 200/25MCG 14 PUFFS/INHALER INH SCH (23:34)
[2019-06-23 03:58] LABS: Basophils # (auto) 0.08 K/uL (0-0.2); Basophils % (auto) 0.9 %; Eosinophils # (auto) 0.11 K/uL (0-0.5); Eosinophils % (auto) 1.2 %; Hematocrit (blood only) 38.3 % (37-47); Hemoglobin 13.1 g/dL (12.0-16.0); Immature Granulocytes # (auto) 0.01 K/uL (0.00-0.02); Immature Granulocytes % (auto) 0.1 %; Lymphocytes # (auto) 3.39 K/uL (1.2-3.4); Lymphocytes % (auto) 37.4 %; Mean Corpuscular Hgb Conc 34.2 g/dL (32-36); Mean Corpuscular Volume 87.6 fL (80-100); Mean Platelet Volume 8.2 fL (7.4-10.4); Monocytes # (auto) 0.58 K/uL (0.11-0.59); Monocytes % (auto) 6.4 %; Platelet Count 233 K/uL (130-400); RDW Coefficient of Variation 13.7 % (11.5-14.5); RDW Standard Deviation 43.9 fL (36.4-46.3); Red Blood Count 4.37 M/uL (4.2-5.4); White Blood Count 9.07 K/uL (4.8-10.8)
[2019-06-23 04:16] LABS: BUN Creatinine Ratio 12.8 (10-20); Blood Urea Nitrogen 8 mg/dl (7-18); Calcium 8.4 mg/dl (8.5-10.1); Carbon Dioxide 30 mmol/L (21-32); Chloride 106 mmol/L (98-107); Creatinine Clr Calc Pharmacy 111.8 ml/min; Est GFR (African American) 117.5; Est GFR (Non-African American) 101.3; Glucose 115 mg/dl (70-99); Potassium 3.9 mmol/L (3.5-5.1); Sodium 138 mmol/L (136-145)
[2019-06-23 04:20] LABS: Troponin I < 0.015 ng/ml (0-0.045)
--- NOTE | 2019-06-23 06:04 | Electrocardiogram Report ---
Test Reason : Blood Pressure : / mmHG Vent. Rate : 093 BPM Atrial Rate : 093 BPM P-R Int : 146 ms QRS Dur : 086 ms QT Int : 350 ms P-R-T Axes : 042 -06 057 degrees QTc Int : 435 ms Normal sinus rhythm Cannot rule out Inferior infarct Cannot rule out Anterior infarct , age undetermined Abnormal ECG When compared with ECG of 08-DEC-2018 21:14, No significant change was found Confirmed by Moe Melvin ([id number]) on 06/23/2019 6:03:45 AM Referred By: ED Confirmed By:Moe Melvin
[2019-06-23] MEDS: FLUTICASONE/VILANTEROL 200/25MCG 14 PUFFS/INHALER INH SCH (08:09)
[2019-06-23] MEDS ORDERED: FLUTICASONE PROPIONATE NA SPR 16 GM BTL SCH (09:00)
[2019-06-23] MEDS ORDERED: DULOXETINE HCL 60 MG CAP PO SCH (09:00)
[2019-06-23] MEDS ORDERED: CYANOCOBALAMIN (VITAMIN B-12) 2,500 MCG TAB.SUBL SL SCH (09:00)
[2019-06-23] MEDS ORDERED: ASPIRIN 81 MG ECTAB PO SCH (09:00)
[2019-06-23] MEDS ORDERED: PANTOprazole 40 MG TAB PO SCH (09:00)
--- NOTE | 2019-06-23 10:23 | Discharge Summary ---
Date of Service June 23, 2019 Admission HPI Per Admitting Provider Deja Marcelino is a 54-year-old female with history of hypertension, hyperlipidemia presenting with chest pain. She reports that for the last 1 to 2 days she has been experiencing substernal chest pressure. Pressure started suddenly while she was at rest. It has been constant, varying in severity, presently 6 out of 10. Pain is nonexertional, non-positional. Mildly worsened by deep breathing. She also has occasional palpitations and nausea. Denies diaphoresis/shortness of breath. Patient called her PCP this morning he was instructed to come to the ER ER course: Maalox, aspirin, nitro, Zofran, normal saline Principal Diagnosis Atypical chest pain - suspect musculoskeletal Discharge Exam Constitutional WD/WN, vitals as above + obese Eyes + anicteric sclerae; normal pupil size ENMT external ear and nose normal, oropharynx normal Neck trachea midline, no thyromegaly Respiratory normal respiratory effort, lungs clear to auscultation Cardiovascular RRR, no murmur, no edema Chest (Breasts) Additional Comments: Chest pain reproducible on palpation Gastrointestinal (Abdomen) normal bowel sounds, soft, nontender, no hepatosplenomegaly Musculoskeletal no cyanosis or clubbing, extremities motor strength 5/5 Skin no rashes, warm and dry Neurologic moves all extremities and awake; no focal motor deficits and not confused Motor/Sensory: no tremor Psychiatric A+Ox3, euthymic affect Discharge Data Allergies Allergy/AdvReac Type Severity Reaction Status Date / Time pregabalin Allergy Intermediate HIVES Verified 06/22/19 15:36 amoxicillin Allergy Mild RASH Verified 06/22/19 15:36 benzonatate Allergy Mild RASH Verified 06/22/19 15:36 clavulanic acid Allergy Unknown RASH Verified 06/22/19 15:36 clindamycin AdvReac Severe GI UPSET Verified 06/22/19 15:36 doxycycline AdvReac Severe VOMIT Verified 06/22/19 15:36 tetracycline AdvReac Severe VOMIT Verified 06/22/19 15:36 NSAIDS (Non-Steroidal AdvReac Intermediate nausea Verified 06/22/19 15:36 Anti-Inflamma hydromorphone AdvReac Unknown severe Verified 06/22/19 15:36 headache Consultations 06/22/19 14:10 ED Decision to Admit Stat Hospital Course (1) Chest pain, unspecified: Deja Marcelino is a 54 year old were admitted to [facility] overnight from June 22 to 2019 due to chest pain. Serial troponins overnight were negative. Reproducibility on palpation would suggest pain is more musculoskeletal, although history and exam not completely consistent. Stress testing was offered but declined at this time therefore recommended following up with her primary care provider and potentially having this as an outpatient due to your significant risk factors for coronary artery disease including diabetes, cholesterol, smoking family history. (2) Type 2 diabetes mellitus: (3) Hyperlipidemia: (4) Fibromyalgia: (5) Asthma: (6) GERD (gastroesophageal reflux disease): Total Time Total Time Spent Total Time Spent (In Minutes): 50 Total Time Includes: Examination of the Patient, Discharge Planning and Medication Reconciliation Discharge Plan Discharge Items Patient Disposition: Home - Self-Care Reason For Visit: CHEST PAIN Discharge Diagnosis: Atypical chest pain - suspect musculoskeletal Activity: Per Instructions section Non-emergency contact: Primary Care Provider Call non-emergency contact if: you have any medication questions and your symptoms worsen Follow-up/Referrals: Israel Nicole MD [Primary Care Provider] - 06/29/19 10:30 am (IF YOU NEED TO RESCHEDULE THIS APPOINTMENT, PLEASE CALL EITHER [phone] OR [phone]. YOUR APPOINTMENT WILL BE WITH DR CALDWELL) Diet: Carb Consistent or DM2 and Heart Healthy Addtl Attending Provider Instructions: You were admitted to [facility] overnight from June 22 to 2019 due to chest pain. Serial troponins (cardiac enzymes) overnight were negative therefore this was not a heart attack. The pain could still be coming from your heart however reproducibility on palpation would suggest your pain is more musculoskeletal. Stress testing was offered but declined at this time therfore recommend following up with you primary care provider and potentially having this as an outpatient due to your significant risk factors for coronary artery disease including your diabetes, cholesterol, smoking family history. Kind regards, Dr Prince Garcia Pending Studies at Discharge: No Stand-Alone Forms: My [facility], Smoking Cessation Medications and DC Order Prescriptions: Continued atorvastatin 40 mg tablet 40 mg PO HS RF: 0 baclofen 10 mg tablet 10 mg PO BID PRN (Reason: Muscle Spasm) RF: 0 hydrocodone-acetaminophen [[place]] 7.5-325 mg tablet 1 tab PO Q6H PRN (Reason: Pain) RF: 0 fluticasone propionate 50 mcg/actuation spray,suspension 2 sprays INTNAS DAILY RF: 0 duloxetine [Cymbalta] 60 mg capsule,delayed release(DR/EC) 60 mg PO QAM RF: 0 ondansetron HCl [Zofran] 4 mg tablet 4 mg PO QID PRN (Reason: Nausea) RF: 0 lorazepam 1 mg tablet 1 mg PO TID PRN (Reason: Anxiety) RF: 0 Trulicity 1.5 mg/0.5 mL pen injector 1.5 mg subcut WK Qty: 2 RF: 6 iegmtjyfjud-yymtsqtxd-emznqryu [Trelegy Ellipta] 100-62.5-25 mcg blister with device 2 inh inhalation BID RF: 0 (DME) OneTouch Ultra Blue Test Strip Strip See Rx Instructions .ROUTE .MEDSUPPLY Qty: 10 RF: 0 (DME) lancets [OneTouch Delica Lancets] 33 gauge misc See Rx Instructions .ROUTE .MEDSUPPLY Qty: 100 RF: 0 omeprazole 40 mg Capsule,Delayed Release(Dr/Ec) 40 mg PO QAM RF: 0 Basaglar KwikPen U-100 Insulin 100 unit/mL (3 mL) Insulin Pen 20 unit SUBCUT QPM RF: 0 metformin [Glucophage XR] 500 mg tablet extended release 24 hr 1,000 mg PO BID RF: 0 cyanocobalamin (vitamin B-12) [Vitamin B-12] 2,500 mcg Tablet, Sublingual 2,500 mcg SUBLINGUAL DAILY RF: 0 Centrum Silver Women 1 tab PO DAILY RF: 0 lulnelrrua-oscrslbrsaven-usgj [Esgic] 50-325-40 mg tablet 1 tab PO Q8H PRN (Reason: Headache) RF: 0 fluticasone propion-salmeterol [Advair Diskus] 500-50 mcg/dose blister with device 1 inh inhalation BID RF: 0 albuterol sulfate [Ventolin HFA] 90 mcg/actuation HFA aerosol inhaler 2 puff inhalation QID PRN (Reason: Wheezing) RF: 0 Discharge Orders: Discharge Order (Routine); Ordered 06/23/19 Ordered By: Prince Bruce/Other Patient Handouts: Echocardiography Stress Echo Admission Data Admit Date/Time: 06/22/19 15:44 Attending Provider: Prince Garcia Admit Provider: Danielle Lindsey Primary Care Provider: Israel Nicole Other Providers: Danielle Lindsey Other Interventions: Discharge Summary Assessment (RN) Last Done: 06/23/19 10:40 DC Date/Time DO NOT enter until pt leaves facility: 06/23/19 11:20 Coding Level of Care Code 88391 OBS Care - Discharge Diagnoses Chest pain, unspecified R07.9 Chest pain type: unspecified Type 2 diabetes mellitus E11.9; Z79.4 Diabetes mellitus complication status: without complication Diabetes mellitus mcfp insulin use: with mcfp use Hyperlipidemia E78.5 Hyperlipidemia type: unspecified Fibromyalgia M79.7 Asthma J45.909 Asthma complication type: unspecified Asthma severity: unspecified severity GERD (gastroesophageal reflux disease) K21.9 Esophagitis presence: esophagitis presence not specified
== END 2019-06-23 11:20 | disposition home or self-care (01) ==
LOC: ED 12:37 → 2N 12:37 → SUATTDRO 15:44 → 2N 18:00